=== PATIENT | male | born 1950 | race Hispanic/Latino ===

== ENCOUNTER 2024-03-26 11:09 | Emergency (ER) | payer SELFPAY ==
--- OUTSIDE RECORDS SUMMARY | 2024-03-26 11:16 | XMS REPORT | Continuity of Care Document ---
Author Name Unknown Address [address] [facility] [address] [place] [address] [facility] thconnect Address [address] [facility]. 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 Role Phone Nemo Gonzalez Primary Care Physician JORGE WOODARD Attending Clinician Unavailable Rita Milner NP Attending Clinician [phone] Jorge Woodard MD Attending Clinician [phone] Jalil Castillo MD Attending Clinician [phone] MONTY HARVEY Attending Clinician Unavailable Monty Harvey MD Attending Clinician [phone] Doctor Unassigned, [place] Attending Clinician U navailable RADIOLOGY Attending Clinician Unavailable Radiology Attending Clinician Unavailable London Hitchcock DO Attending Clinician [phone] Edy Albarran MD Attending Clinician [phone] EDY ALBARRAN Attending Clinician Unavailable Gaye Song DO Attending Clinician [phone] Pc, Adc Echo Room 1 - Attending Clinician Anitra Hair MD, Lexi K.H. Attending Clinician [phone] LEXI HAIR Attending Clinician UnavailDENISE King Attending Clinician Unavailable JOHN GARDNER Attending Clinician Kourtney León Attending Clinician [phone] Jj THORNTON, John Dos Santos Attending Clinician [phone] JALIL CASTILLO Admitting Clinician Unavailable Braeden THORNTON, Jalil Admitting Clinician [phone] XIN ESTRADA Admitting Clinician Anitra Albarran MD, Edy Admitting Clinician [phone] EDY ALBARRAN Admitting Clinician Unavailable Payers Payer Name Policy Type Policy Number Effective Date Expirati on Date Source MEDICAID ALI[place] PENDING PENDING 2024 00:00:00 Problems Condition Name Condition Details Condition Category Status Onset Date Resolution Date Last Treatment Date Treating Clinician Comments Source Chest pain in adult Chest pain in adult Disease Active 03-26 00:00: 00 [facility] Chest pain Chest pain Disease Active 2016-08 00:00: 00 [facility] NSVT (nonsustai nhi ventricula r tachycardi a) NSVT (nonsustai nhi ventricula r tachycardi a) Disease Active 2016-08 00:00: 00 [facility] Coronary artery disease involving [place] coronary artery of [place] heart without angina pectoris Coronary artery disease involving [place] coronary artery of [place] heart without angina pectoris Disease Active 2016-08 00:00: 00 [facility] Acute on chronic diastolic congestive heart failure Acute on chronic diastolic congestive heart failure Disease Active 2016-08 00:00: 00 [facility] Subclinica l hypothyroi dism Subclinica l hypothyroi dism Disease Active 2016-08 00:00: 00 [facility] Coronary artery disease involving [place] coronary artery of [place] heart without angina pectoris Coronary artery disease involving [place] coronary artery of [place] heart without angina pectoris Disease Active 2016-08 00:00: 00 [facility] PAF (paroxysma l atrial fibrillati on) PAF (paroxysma l atrial fibrillati on) Disease Active 2016-08 00:00: 00 [facility] Elevated liver enzymes Elevated liver enzymes Disease Active 2016-08 00:00: 00 [facility] 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 Disease Active 2016-08 0 00:00: 00 [facility] H/O: GI bleed H/O: GI bleed Disease Resolve d 2016-08 00:00: 00 2017-06-15 00:00:00 2017-06-15 10:15:22 [facility] Allergies, Adverse Reactions, Alerts Allergy Name Allergy Type Status Severity Reaction(s) Onset Date Inactive Date Treating Clinician Comments Source [place] - Intraven ous Propensi ty to adverse reaction to drug Active 02-26 00:00: 00 Kaz Lopez NO KNOWN ALLERGIE S Drug Class Active [facility] Social History Social Habit Start Date Stop Date Quantity Comments [facility] History of tobacco use Cigarette Smoker [facility] Alcoholic beverage intake 2024-03-26 00:00:00 2024-03-26 00:00:00 Current non-drinker of alcohol (finding) [facility] Exposure to SARS-CoV-2 (event) 2022-04-01 00:00:00 2022-04-11 14:36:00 Not sure [facility] History of Social function 2022-04-11 00:00:00 2022-04-11 00:00:00 [facility] Alcohol intake 2021-04-10 00:00:00 2021-04-10 00:00:00 Current non-drinker of alcohol (finding) [facility] History SDOH Financial 2020-08-24 00:00:00 2020-08-24 00:00:00 4 [facility] History SDOH Food Worry 2020-08-24 00:00:00 2020-08-24 00:00:00 1 [facility] History SDOH Food Scarcity 2020-08-24 00:00:00 2020-08-24 00:00:00 1 [facility] History SDOH Transport Med 2020-08-24 00:00:00 2020-08-24 00:00:00 2 [facility] History SDOH Transport Non-Med 2020-08-24 00:00:00 2020-08-24 00:00:00 2 [facility] Tobacco use and exposure 2017-06-12 00:00:00 2017-06-12 00:00:00 Smokeless tobacco non-user [facility] Sex assigned at 1950 00:00:00 1950 00:00:00 [facility] Smoking Status Start Date Stop Date Source Ex-smoker 2017-06-12 00:00:00 2017-06-12 00:00:00 [facility] Medications Ordered Medication Name Filled Medication Name Start Date Stop Date Current Medication? Ordering Clinician Indication Dosage Frequency Signature (SIG) Comments Components Source enoxaparin (LOVENOX) injection 40 mg 03-26 22:00: 00 Yes 40mg [facility] piperacilli n-tazobacta m (ZOSYN) 3.375 g in NaCl 0.9% (NS) 100 mL MINI-BAG 03-26 16:30: 00 03-28 08:29 :00 Yes 3.375g 3.375 g, IV Piggyback, Q8H ABX, 5 doses, First dose (after last reorder) on 03/26/24 at 1130, Last dose on 03/27/24 at 1930, Administer over 4 Hours, 100 mL, Reason for Anti-Infec tive: Empiric Therapy for Suspected Infection, Empiric Therapy Site: Abdominal, Duration of therapy: Once (ED) [facility] ondansetron (ZOFRAN (PF)) injection 4 mg 03-26 11:33: 29 Yes 4[facility] morphine (2 mg/mL) injection 2 mg 03-26 11:33: 22 03-27 11:32 :22 Yes [facility] morpHINE (4 mg/mL) injection 4 mg 03-26 08:15: 00 03-26 08:13 :00 No 4mg 4 mg, Slow IV Push, ONCE, 1 dose, On 03/26/24 at 0315, STAT [facility] piperacilli n-tazobacta m (ZOSYN) 3.375 g in NaCl 0.9% (NS) 100 mL MINI-BAG 03-26 08:15: 00 03-26 09:03 :00 No 3.375g 3.375 g, IV Piggyback, ONCE, 1 dose, On 03/26/24 at 0315, Administer over 30 Minutes, 100 mL, Reason for Anti-Infec tive: Empiric Therapy for Suspected Infection, Empiric Therapy Site: Abdominal, Duration of therapy: Once (ED) [facility] iopamidol (ISOVUE 370-500 mL) injection 100 mL 03-26 08:15: 00 03-26 08:15 :00 No [id number] 100mL 100 mL, Intravenou s, ONCE, 1 dose, On 03/26/24 at 0315, Routine [facility] famotidine (PEPCID (PF)) injection 20 mg 03-26 07:30: 00 03-26 08:13 :00 No 20mg 20 mg, Slow IV Push, ONCE, 1 dose, [facility] 0230[facility] 4 mg 03-26 06:15: 00 03-26 06:16 :00 No 4mg 4 mg, Slow IV Push, ONCE, 1 dose, On 03/26/24 at 0115, FLORA [facility] morpHINE (4 mg/mL) injection 4 mg 03-26 06:15: 00 03-26 06:16 :00 No 4mg 4 mg, Slow IV Push, ONCE, 1 dose, On 03/26/24 at 0115, STAT [facility] sodium chloride (NS) injection 5 mL 03-26 05:41: 22 Yes 5mL 5 mL, Intravenou s, PRN, Starting on 03/26/24 at 0041, Until Discontinu ed, Routine, IV line flushing [facility] pantoprazol e 40 mg tablet,celso yed release 03-22 00:00: 00 Yes mg Kaz Lopez metoprolol succinate ER 25 mg tablet,exte nded release 24 hr 03-22 00:00: 00 Yes mg Kaz Lopez spironolact one 25 mg tablet 03-22 00:00: 00 Yes mg Kaz Lopez levothyroxi ne 112 mcg tablet 03-22 00:00: 00 Yes mcg Kaz Lopez clopidogrel 75 mg tablet 03-22 00:00: 00 Yes 1mg Kaz Lopez simvastatin 40 mg tablet 03-22 00:00: 00 Yes 1mg Kaz Lopez pantoprazol e 40 mg tablet,celso yed release 12-15 00:00: 00 Yes mg Kza Lopez metoprolol succinate ER 25 mg tablet,exte nded release 24 hr 12-15 00:00: 00 Yes mg Kaz Lopez levothyroxi ne 112 mcg tablet 12-15 00:00: 00 Yes mcg Kaz Lopez clopidogrel 75 mg tablet 12-15 00:00: 00 Yes 1mg Kaz Lopez simvastatin 40 mg tablet 12-15 00:00: 00 Yes 1mg Kaz Lopez TAKE 1 TABLET DAILY. 09-19 00:00: 00 Yes 75 Kaz Lopez TAKE 1 TABLET BY MOUTH DAILY 09-19 00:00: 00 Yes 40 Kaz Lopez TAKE 1 TABLET BY MOUTH ONCE DAILY 09-19 00:00: 00 Yes 40 Kaz Lopez TAKE 1 TABLET BY MOUTH ONCE DAILY 09-19 00:00: 00 Yes 112 Kaz Lopez TAKE 1/2 TABLET DAILY. 09-19 00:00: 00 Yes 25 Kaz Lopez TAKE 1 TABLET EVERY 8 HOURS WITH FOOD. 2022-08 00:00: 00 12-17 00:00 :00 No 800 Kaz Lopez APPLY 1/2 INCH RIBBON IN LOWER CONJUNCTIVA L SAC AT BEDTIME NIGHTLY. 2022-08 00:00: 00 12-17 00:00 :00 No 5 Kaz Lopez TAKE 1 TABLET BY MOUTH ONCE DAILY 04-14 00:00: 00 12-17 00:00 :00 No 112 Kaz F John TAKE 1 TABLET BY MOUTH ONCE DAILY 04-11 00:00: 00 12-17 00:00 :00 No 112 Kaz Lopez TAKE 1 TABLET DAILY. 04-11 00:00: 00 12-17 00:00 :00 No 80 Kaz Lopez TAKE 1/2 TABLET DAILY. 04-11 00:00: 00 12-17 00:00 :00 No 25 Kaz Lopez TAKE 1 TABLET DAILY. 04-11 00:00: 00 12-17 00:00 :00 No 75 Kaz Lopez TAKE 1/2 (ONE-HALF) TABLET BY MOUTH ONCE DAILY 04-11 00:00: 00 12-17 00:00 :00 No 25 Kaz Lopez TAKE 1 TABLET BY MOUTH ONCE DAILY 04-11 00:00: 00 12-17 00:00 :00 No 40 Kaz Lopez TAKE 1 CAPSULE EVERY 6 TO 8 HOURS NEEDED.MAXI MUM OF 3 DOSES IN 24 HOURS. 04-11 00:00: 00 12-17 00:00 :00 No 2 Kaz Lopez TAKE 1 TABLET BY MOUTH ONCE DAILY 04-11 00:00: 00 12-17 00:00 :00 No 50 Kaz Lopez TAKE 1 TABLET BY MOUTH DAILY 04-11 00:00: 00 12-17 00:00 :00 No 40 Kaz Lopez levothyroxi ne 112 mcg tablet 04-06 00:00: 00 Yes mcg Kaz Lopez pantoprazol e 40 mg tablet,celso yed release 04-05 00:00: 00 Yes mg Kaz Lopez TAKE 1 TABLET BY MOUTH ONCE DAILY 04-05 00:00: 00 Yes 112 Kaz Lopez TAKE 1 TABLET BY MOUTH ONCE DAILY 03-12 00:00: 00 12-17 00:00 :00 No 50 Kaz Lopez spironolact one 25 mg tablet 03-04 00:00: 00 Yes [id number] 12.5mg Take 0.5 tablets by mouth daily. [facility] simvastatin 40 mg tablet 03-04 00:00: 00 Yes [id number] 40mg Take 1 tablet by mouth at bedtime. [facility] metoprolol succinate XL 25 mg 24 hr tablet 03-04 00:00: 00 Yes [id number] 12.5mg Take 0.5 tablets by mouth daily. [facility] losartan 50 mg tablet 03-04 00:00: 00 Yes 50mg Take 1 tablet by mouth daily. [facility] KCL (KLOR-CON M20) 20 mEq tablet 03-04 00:00: 00 Yes [id number] 20meq Take 1 tablet by mouth daily. [facility] furosemide 80 mg tablet 03-04 00:00: 00 Yes [id number] 80mg Take 1 tablet by mouth every morning and evening. [facility] clopidogreL 75 mg tablet 03-04 00:00: 00 Yes [id number] 75mg Take 1 tablet by mouth daily. [facility] spironolact one 25 mg tablet 02-24 00:00: 00 Yes mg Kaz Lopez metoprolol succinate ER 25 mg tablet,exte nded release 24 hr 02-24 00:00: 00 Yes mg Kaz Lopez TAKE 1 TABLET BY MOUTH ONCE DAILY 02-24 00:00: 00 12-17 00:00 :00 No 40 Kaz Lopez TAKE 1 TABLET BY MOUTH ONCE DAILY 11-17 00:00: 00 12-17 00:00 :00 No 40 Kaz Lopez TAKE 1/2 (ONE-HALF) TABLET BY MOUTH ONCE DAILY 11-17 00:00: 00 12-17 00:00 :00 No 25 Kaz Lopez TAKE 1 TABLET DAILY. -08 00:00: 00 12-17 00:00 :00 No 75 Kaz Lopez TAKE 1 TABLET DAILY. 09-18 00:00: 00 12-17 00:00 :00 No 112 Kaz Lopze TAKE 1 TABLET BY MOUTH DAILY 2- 00:00: 00 12-17 00:00 :00 No 40 Kaz F John TAKE 1 TABLET DAILY. 09-17 00:00: 00 12-17 00:00 :00 No 112 Kaz F John TAKE 1 CAPSULE 3 TIMES DAILY. 2 00:00: 00 12-17 00:00 :00 No 100 Kaz F John TAKE 1 TABLET BY MOUTH ONCE DAILY 09-17 00:00: 00 12-17 00:00 :00 No 50 Kaz F John TAKE 1 TABLET DAILY. 09-17 00:00: 00 12-17 00:00 :00 No 75 Kaz F John TAKE 1 TABLET BY MOUTH DAILY 09-17 00:00: 00 12-17 00:00 :00 No 20 Kaz F John TAKE 1 TABLET DAILY. 09-17 00:00: 00 12-17 00:00 :00 No 80 Kaz F John TAKE 1/2 TABLET DAILY. 09-17 00:00: 00 12-17 00:00 :00 No 25 Kaz F John TAKE 1 TABLET DAILY. 09-17 00:00: 00 12-17 00:00 :00 No 40 Kaz F John TAKE 1 TABLET BY MOUTH ONCE DAILY 08-22 00:00: 00 12-17 00:00 :00 No 50 Kaz F John TAKE 1/2 (ONE-HALF) TABLET BY MOUTH ONCE DAILY 08-19 00:00: 00 12-17 00:00 :00 No 25 Kaz F John TAKE 1 TABLET DAILY. 2021-08 00:00: 00 12-17 00:00 :00 No 112 Kaz Isaiah Lopez TAKE 1 TABLET BY MOUTH ONCE DAILY 2021-08 00:00: 00 Yes Kaz Lopez pantoprazol e 40 mg EC tablet 2021-08 00:00: 00 Yes 40mg Take 1 tablet by mouth daily. [facility] TAKE 1 TABLET BY MOUTH ONCE DAILY 2021-08 00:00: 00 Yes Kaz Lopez KCL (KLOR-CON M20) 20 mEq tablet 2021-08 00:00: 00 03-04 00:00 :00 No [id number] 20meq Take 1 tablet by mouth daily. [facility] TAKE 1/2 (ONE-HALF) TABLET BY MOUTH ONCE DAILY 05-07 00:00: 00 12-17 00:00 :00 No Kaz Lopez TAKE 1 TABLET BY MOUTH ONCE DAILY 03-03 00:00: 00 Yes Kaz Lopez metoprolol succinate ER 25 mg tablet,exte nded release 24 hr 02-26 00:00: 00 Yes 5mg Kaz Lopez pantoprazol e 40 mg tablet,celos yed release 02-26 00:00: 00 Yes 1mg Kaz Lopez furosemide 80 mg tablet 02-26 00:00: 00 Yes 1mg Kaz Lopez gabapentin 100 mg capsule 02-26 00:00: 00 Yes 1mg Kaz Lopez metoprolol succinate ER 25 mg tablet,exte nded release 24 hr 02-26 00:00: 00 No 5mg pantoprazol e 40 mg tablet,celso yed release 02-26 00:00: 00 No 1mg furosemide 80 mg tablet 02-26 00:00: 00 No 1mg gabapentin 100 mg capsule 02-26 00:00: 00 No 1mg furosemide 80 mg tablet 02-25 00:00: 00 03-04 00:00 :00 No [id number] 80mg Take 1 tablet by mouth every morning and evening. [facility] losartan 50 mg tablet 02-25 00:00: 00 03-04 00:00 :00 No 50mg Take 1 tablet by mouth daily. [facility] metoprolol succinate XL 25 mg 24 hr tablet 02-25 00:00: 00 03-04 00:00 :00 No [id number] 12.5mg Take 0.5 tablets by mouth daily. [facility] levothyroxi ne 112 mcg tablet 2022-0 6-02 00:00: 00 Yes 1mcg Kaz Lopez levothyroxi ne 112 mcg tablet 2021-0 6-02 00:00: 00 No 1mcg metoprolol succinate ER 25 mg tablet,exte nded release 24 hr 2021-0 4-05 00:00: 00 Yes 5mg Kaz Lopez metoprolol succinate ER 25 mg tablet,exte nded release 24 hr 2021-0 4-05 00:00: 00 No 5mg levothyroxi ne 112 mcg tablet 2021-0 3-28 00:00: 00 Yes 1mcg Kaz Lopez TAKE 1 TABLET BY MOUTH ONCE DAILY 2021-0 -28 00:00: 00 Yes Kaz Lopez levothyroxi ne 112 mcg tablet 2021-0 -28 00:00: 00 No 1mcg levothyroxi ne 125 mcg tablet 2021-0 3-24 00:00: 00 Yes 1mcg Kaz Lopez Dose Unknown 2021-0 3-24 00:00: 00 Yes Kaz Lopez Dose Unknown 2021-0 324 00:00: 00 Yes Kaz Lopez Dose Unknown 2021-0 324 00:00: 00 Yes Kaz Lopez Dose Unknown 2021-0 3-24 00:00: 00 Yes Kaz Lopez Dose Unknown 2021-0 3-24 00:00: 00 Yes Kaz Lopez levothyroxi ne 125 mcg tablet 2021-0 324 00:00: 00 No 1mcg Dose Unknown 2021-0 3-24 00:00: 00 No Dose Unknown 2021-0 3-24 00:00: 00 No Dose Unknown 2021-0 3-24 00:00: 00 No Dose Unknown 2021-0 324 00:00: 00 No Dose Unknown 2021-0 3-24 00:00: 00 No metoprolol succinate ER 25 mg tablet,exte nded release 24 hr 2021-0 2-28 00:00: 00 Yes 5mg Kaz Lopez Dose Unknown 2021-0 2-28 00:00: 00 Yes Kaz Lopez pantoprazol e 40 mg tablet,celso yed release 2021-0 2-28 00:00: 00 Yes 1mg Kaz Lopez metoprolol succinate ER 25 mg tablet,exte nded release 24 hr 10-14 00:00: 00 No 5mg spironolact one 25 mg tablet 10-14 00:00: 00 No 5mg pantoprazol e 40 mg tablet,celso yed release 10-14 00:00: 00 No 1mg ibuprofen 800 mg tablet 10-02 00:00: 00 Yes 1mg Kaz Lopez methocarbam ol 750 mg tablet 10-02 00:00: 00 Yes 1mg Kaz Lopez levothyroxi ne 125 mcg tablet 10-02 00:00: 00 Yes 1mcg Kaz Lopez TAKE 1 TABLET BY MOUTH ONCE DAILY 10-02 00:00: 00 Yes Kaz Lopez ibuprofen 800 mg tablet 10-02 00:00: 00 No 1mg methocarbam ol 750 mg tablet 10-02 00:00: 00 No 1mg levothyroxi ne 125 mcg tablet 10-02 00:00: 00 No 1mcg ibuprofen 800 mg tablet 2020-08 00:00: 00 Yes 1mg Kaz Lopez levothyroxi ne 125 mcg tablet 2020-08 00:00: 00 Yes 1mcg Kaz Lopez ibuprofen 800 mg tablet 2020-08 00:00: 00 No 1mg levothyroxi ne 125 mcg tablet 2020-08 00:00: 00 No 1mcg pantoprazol e 40 mg EC tablet 2020-08 00:00: 00 07-03 00:00 :00 No 40mg Take 1 tablet by mouth daily. [facility] terbinafine HCl 250 mg tablet 2020-08 00:00: 00 Yes 1mg Kaz Lopez terbinafine HCl 250 mg tablet 2020-08 00:00: 00 No 1mg FLUTICASONE PROPIONATE (FLUTICASON E NASAL) 04-10 15:35: 33 Yes 50ug Use 50 mcg in each nostril as needed for Other. [facility] clopidogreL 75 mg tablet 04-10 00:00: 00 03-04 00:00 :00 No [id number] 75mg Take 1 tablet by mouth daily. [facility] simvastatin 40 mg tablet 04-10 00:00: 00 03-04 00:00 :00 No [id number] 40mg Take 1 tablet by mouth at bedtime. [facility] spironolact one 25 mg tablet 04-10 00:00: 00 03-04 00:00 :00 No [id number] 12.5mg Take 0.5 tablets by mouth daily. [facility] KCL (KLOR-CON M20) 20 mEq tablet 04-10 00:00: 00 06-24 00:00 :00 No [id number] 20meq Take 1 tablet by mouth daily. [facility] terbinafine HCl 250 mg tablet 04-06 00:00: 00 Yes 1mg Kaz Lopez terbinafine HCl 250 mg tablet 04-06 00:00: 00 No 1mg levothyroxi ne 125 mcg tablet 12-25 00:00: 00 Yes 1mcg Kaz Lopez levothyroxi ne 125 mcg tablet 12-25 00:00: 00 No 1mcg amiodarone 200 mg tablet 12-24 00:00: 00 Yes 5mg Kaz Lopez Dose Unknown 12-24 00:00: 00 Yes Kaz Lopez clopidogrel 75 mg tablet 12-24 00:00: 00 Yes 1mg Kaz Lopez metoprolol succinate ER 25 mg tablet,exte nded release 24 hr 12-24 00:00: 00 Yes 5mg Kaz Lopez Dose Unknown 12-24 00:00: 00 Yes Kaz Lopez furosemide 80 mg tablet 12-24 00:00: 00 Yes 1mg Kaz Lopez levothyroxi ne 125 mcg tablet 12-24 00:00: 00 Yes 1mcg Kaz Lopez amiodarone 200 mg tablet 12-24 00:00: 00 No 5mg spironolact one 25 mg tablet 12-24 00:00: 00 No 5mg clopidogrel 75 mg tablet 12-24 00:00: 00 No 1mg metoprolol succinate ER 25 mg tablet,exte nded release 24 hr 12-24 00:00: 00 No 5mg simvastatin 40 mg tablet 12-24 00:00: 00 No 1mg furosemide 80 mg tablet 12-24 00:00: 00 No 1mg levothyroxi ne 125 mcg tablet 12-24 00:00: 00 No 1mcg metoprolol succinate ER 25 mg tablet,exte nded release 24 hr 2019-08 00:00: 00 Yes 5mg Kaz Lopez Dose Unknown 2019-08 00:00: 00 Yes Kaz Lopez spironolact one 25 mg tablet 2019-08 00:00: 00 Yes 5mg Kaz Lopez clopidogrel 75 mg tablet 2019-08 00:00: 00 Yes 1mg Kaz Lopez pantoprazol e 40 mg tablet,celso yed release 2019-08 00:00: 00 Yes 1mg Kaz Lopez amiodarone 200 mg tablet 2019-08 00:00: 00 Yes 5mg Kaz Lopez furosemide 80 mg tablet 2019-08 00:00: 00 Yes 1mg Kaz Lopez Cialis 20 mg tablet 2019-08 00:00: 00 Yes 1mg Kaz Lopez levothyroxi ne 125 mcg tablet 2019-08 00:00: 00 Yes 1mcg Kaz Lopez metoprolol succinate ER 25 mg tablet,exte nded release 24 hr 2019-08 00:00: 00 No 5mg simvastatin 40 mg tablet 2019-08 00:00: 00 No 1mg spironolact one 25 mg tablet 2019-08 00:00: 00 No 5mg clopidogrel 75 mg tablet 2019-08 00:00: 00 No 1mg pantoprazol e 40 mg tablet,celso yed release 2019-08 00:00: 00 No 1mg amiodarone 200 mg tablet 2019-08 00:00: 00 No 5mg furosemide 80 mg tablet 2019-08 00:00: 00 No 1mg Cialis 20 mg tablet 2019-08 00:00: 00 No 1mg levothyroxi ne 125 mcg tablet 2019-08 00:00: 00 No 1mcg levothyroxi ne 125 mcg tablet 05-13 00:00: 00 Yes 1mcg Kaz Lopez levothyroxi ne 125 mcg tablet 05-13 00:00: 00 No 1mcg levothyroxi ne 125 mcg tablet 03-05 00:00: 00 Yes 1mcg Kaz Lopez levothyroxi ne 125 mcg tablet 03-05 00:00: 00 No 1mcg levothyroxi ne 125 mcg tablet 01-01 00:00: 00 Yes 1mcg Kaz Lopez levothyroxi ne 125 mcg tablet 01-01 00:00: 00 No 1mcg levothyroxi ne 112 mcg tablet 01-01 00:00: 00 Yes 112ug Take 1 tablet by mouth every morning. [facility] aspirin 81 mg chewable tablet 01-01 00:00: 00 Yes 81mg Take 1 tablet by mouth daily. [facility] cetirizine 10 mg tablet 12-30 00:00: 00 Yes 1mg Kaz Lopez metoprolol succinate ER 25 mg tablet,exte nded release 24 hr 12-30 00:00: 00 Yes 5mg Kaz Lopez Dose Unknown 12-30 00:00: 00 Yes Kaz Lopez clopidogrel 75 mg tablet 12-30 00:00: 00 Yes 1mg Kaz Lopez Dose Unknown 12-30 00:00: 00 Yes Kaz Lopez pantoprazol e 40 mg tablet,celso yed release 12-30 00:00: 00 Yes 1mg Kaz Lopez amiodarone 200 mg tablet 12-30 00:00: 00 Yes 5mg Kaz Lopez furosemide 80 mg tablet 12-30 00:00: 00 Yes 1mg aKz Lopez Cialis 20 mg tablet 12-30 00:00: 00 Yes 1mg Kaz Lopez cetirizine 10 mg tablet 12-30 00:00: 00 No 1mg metoprolol succinate ER 25 mg tablet,exte nded release 24 hr 12-30 00:00: 00 No 5mg simvastatin 40 mg tablet 12-30 00:00: 00 No 1mg clopidogrel 75 mg tablet 12-30 00:00: 00 No 1mg spironolact one 25 mg tablet 12-30 00:00: 00 No 5mg pantoprazol e 40 mg tablet,celso yed release 12-30 00:00: 00 No 1mg amiodarone 200 mg tablet 12-30 00:00: 00 No 5mg furosemide 80 mg tablet 12-30 00:00: 00 No 1mg Cialis 20 mg tablet 12-30 00:00: 00 No 1mg levothyroxi ne 112 mcg tablet 12-19 00:00: 00 Yes 1mcg Kaz Lopez levothyroxi ne 112 mcg tablet 12-19 00:00: 00 No 1mcg spironolact one 25 mg tablet 11-02 00:00: 00 Yes 5mg Kaz Lopez amiodarone 200 mg tablet 11-02 00:00: 00 Yes 5mg Kaz Lopez pantoprazol e 40 mg tablet,celso yed release 11-02 00:00: 00 Yes 1mg Kaz Lopez metoprolol succinate ER 25 mg tablet,exte nded release 24 hr 11-02 00:00: 00 Yes 5mg Kaz Lopez simvastatin 40 mg tablet 11-02 00:00: 00 Yes 1mg Kaz Lopez clopidogrel 75 mg tablet 11-02 00:00: 00 Yes 1mg Kaz Lopez cetirizine 10 mg tablet 11-02 00:00: 00 Yes 1mg Kaz Lopez furosemide 80 mg tablet 11-02 00:00: 00 Yes 1mg Kaz Lopez cyclobenzap rine 5 mg tablet 11-02 00:00: 00 Yes 1mg Kaz Lopez Klor-Con M20 mEq tablet,exte nded release 11-02 00:00: 00 Yes 1mEq Kaz Lopez levothyroxi ne 112 mcg tablet 11-02 00:00: 00 Yes 1mcg Kaz Lopez spironolact one 25 mg tablet 11-02 00:00: 00 No 5mg amiodarone 200 mg tablet 11-02 00:00: 00 No 5mg pantoprazol e 40 mg tablet,celso yed release 11-02 00:00: 00 No 1mg metoprolol succinate ER 25 mg tablet,exte nded release 24 hr 11-02 00:00: 00 No 5mg simvastatin 40 mg tablet 11-02 00:00: 00 No 1mg clopidogrel 75 mg tablet 11-02 00:00: 00 No 1mg cetirizine 10 mg tablet 11-02 00:00: 00 No 1mg furosemide 80 mg tablet 11-02 00:00: 00 No 1mg cyclobenzap rine 5 mg tablet 11-02 00:00: 00 No 1mg Klor-Con M20 mEq tablet,exte nded release 11-02 00:00: 00 No 1mEq levothyroxi ne 112 mcg tablet 11-02 00:00: 00 No 1mcg tadalafil 20 mg tablet 10-27 00:00: 00 Yes [id number] 20mg Take 1 tablet by mouth as needed for [facility] mg [facility] 10-19 00:00: 00 Yes 1mg Kaz Lopez clopidogrel 75 mg tablet 10-19 00:00: 00 Yes 1mg Kaz Lopez spironolact one 25 mg tablet 10-19 00:00: 00 Yes 5mg Kaz Lopez amiodarone 200 mg tablet 10-19 00:00: 00 Yes 5mg Kaz Lopez pantoprazol e 40 mg tablet,celso yed release 10-19 00:00: 00 Yes 1mg Kaz Lopez metoprolol succinate ER 25 mg tablet,exte nded release 24 hr 10-19 00:00: 00 Yes 5mg Kaz Lopez furosemide 80 mg tablet 10-19 00:00: 00 Yes 1mg Kaz Lopez Klor-Con M20 mEq tablet,exte nded release 10-19 00:00: 00 Yes 1mEq Kaz Lopez levothyroxi ne 112 mcg tablet 10-19 00:00: 00 Yes 1mcg Kaz Lopez simvastatin 40 mg tablet 10-19 00:00: 00 No 1mg clopidogrel 75 mg tablet 10-19 00:00: 00 No 1mg spironolact one 25 mg tablet 10-19 00:00: 00 No 5mg amiodarone 200 mg tablet 10-19 00:00: 00 No 5mg pantoprazol e 40 mg tablet,celso yed release 10-19 00:00: 00 No 1mg metoprolol succinate ER 25 mg tablet,exte nded release 24 hr 10-19 00:00: 00 No 5mg furosemide 80 mg tablet 10-19 00:00: 00 No 1mg Klor-Con M20 mEq tablet,exte nded release 10-19 00:00: 00 No 1mEq levothyroxi ne 112 mcg tablet 10-19 00:00: 00 No 1mcg metoprolol succinate ER 25 mg tablet,exte nded release 24 hr 09-16 00:00: 00 Yes 5mg Kaz Lopez pantoprazol e 40 mg tablet,celso yed release 09-16 00:00: 00 Yes 1mg Kaz Lopez amiodarone 200 mg tablet 09-16 00:00: 00 Yes 5mg Kaz Lopez clopidogrel 75 mg tablet 09-16 00:00: 00 Yes 1mg Kaz Lopez spironolact one 25 mg tablet 09-16 00:00: 00 Yes 5mg Kaz Lopez simvastatin 40 mg tablet 09-16 00:00: 00 Yes 1mg Kaz Lopez furosemide 80 mg tablet 09-16 00:00: 00 Yes 1mg Kaz Lopez Klor-Con M20 mEq tablet,exte nded release 09-16 00:00: 00 Yes 1mEq Kaz Lopez metoprolol succinate ER 25 mg tablet,exte nded release 24 hr 09-16 00:00: 00 No 5mg pantoprazol e 40 mg tablet,celso yed release 09-16 00:00: 00 No 1mg amiodarone 200 mg tablet 09-16 00:00: 00 No 5mg clopidogrel 75 mg tablet 09-16 00:00: 00 No 1mg spironolact one 25 mg tablet 09-16 00:00: 00 No 5mg simvastatin 40 mg tablet 09-16 00:00: 00 No 1mg furosemide 80 mg tablet 09-16 00:00: 00 No 1mg Klor-Con M20 mEq tablet,exte nded release 09-16 00:00: 00 No 1mEq levothyroxi ne 112 mcg tablet 09-15 00:00: 00 Yes 1mcg Kaz Lopez levothyroxi ne 112 mcg tablet 09-15 00:00: 00 No 1mcg loratadine 10 mg tablet 2018-08 00:00: 00 Yes 1mg Kaz Lopez Tessalon Perles 100 mg capsule 2018-08 00:00: 00 Yes 12mg Kaz Lopez loratadine 10 mg tablet 2018-08 00:00: 00 No 1mg Tessalon Perles 100 mg capsule 2018-08 00:00: 00 No 12mg Levitra 20 mg tablet 2018-08 00:00: 00 Yes 1mg Kaz Lopez levothyroxi ne 112 mcg tablet 2018-08 00:00: 00 Yes 1mcg Kaz Lopez Levitra 20 mg tablet 2018-08 00:00: 00 No 1mg levothyroxi ne 112 mcg tablet 2018-08 00:00: 00 No 1mcg Viagra 50 mg tablet 04-09 00:00: 00 Yes 1mg Kaz Lopez Viagra 50 mg tablet 04-09 00:00: 00 No 1mg Viagra 50 mg tablet 03-07 00:00: 00 Yes 1mg Kaz Lopez Viagra 50 mg tablet 03-07 00:00: 00 No 1mg ProAir HFA 90 mcg/actuati on aerosol inhaler 03-04 00:00: 00 Yes 1mcg/ac tuation Kaz Lopez Augmentin 875 mg-125 mg tablet 03-04 00:00: 00 Yes 1mg Kaz Lopez ProAir HFA 90 mcg/actuati on aerosol inhaler 03-04 00:00: 00 No 1mcg/ac tuation Augmentin 875 mg-125 mg tablet 03-04 00:00: 00 No 1mg cetirizine 10 mg tablet 02-12 00:00: 00 Yes 1mg Kaz Lopez cetirizine 10 mg tablet 02-12 00:00: 00 No 1mg levothyroxi ne 112 mcg tablet 2017-08 00:00: 00 Yes 1mcg Kaz Lopez levothyroxi ne 112 mcg tablet 2017-08 00:00: 00 No 1mcg levothyroxi ne 112 mcg tablet 04-10 00:00: 00 Yes 1mcg Kaz Lopez levothyroxi ne 112 mcg tablet 04-10 00:00: 00 No 1mcg levothyroxi ne 100 mcg tablet 02-12 00:00: 00 Yes 1mcg Kaz Lopez levothyroxi ne 100 mcg tablet 02-12 00:00: 00 No 1mcg levothyroxi ne 100 mcg tablet 01-19 00:00: 00 Yes 1mcg Kaz Lopez levothyroxi ne 100 mcg tablet 01-19 00:00: 00 No 1mcg metoprolol succinate ER 25 mg tablet,exte nded release 24 hr 11-29 00:00: 00 Yes 5mg Kaz Lopez metoprolol succinate ER 25 mg tablet,exte nded release 24 hr 11-29 00:00: 00 No 5mg pantoprazol e 40 mg tablet,celso yed release 11-25 00:00: 00 Yes 1mg Kaz Lopez pantoprazol e 40 mg tablet,celso yed release 11-25 00:00: 00 No 1mg spironolact one 25 mg tablet 11-16 00:00: 00 Yes 5mg Kaz Lopez levothyroxi ne 50 mcg tablet 11-16 00:00: 00 Yes 1mcg Kaz Lopez spironolact one 25 mg tablet 11-16 00:00: 00 No 5mg levothyroxi ne 50 mcg tablet 11-16 00:00: 00 No 1mcg levothyroxi ne 50 mcg tablet 11-16 00:00: 00 No 2mcg Klor-Con M20 mEq tablet,exte nded release 10-31 00:00: 00 Yes 1mEq Kaz Lopez Klor-Con M20 mEq tablet,exte nded release 10-31 00:00: 00 No 1mEq furosemide 80 mg tablet 10-28 00:00: 00 Yes 1mg Kaz Lopez furosemide 80 mg tablet 10-28 00:00: 00 No 1mg amiodarone 200 mg tablet 10-19 00:00: 00 Yes 5mg Kaz Lopez amiodarone 200 mg tablet 10-19 00:00: 00 No 5mg clopidogrel 75 mg tablet 04-21 00:00: 00 Yes 1mg Kaz Lopez lisinopril 2.5 mg tablet 04-21 00:00: 00 Yes 1mg Kaz Lopez aspirin 81 mg tablet,celso yed release 04-21 00:00: 00 Yes 1mg Kaz Lopez simvastatin 40 mg tablet 04-21 00:00: 00 Yes 1mg Kaz Lopez amiodarone 200 mg tablet 04-21 00:00: 00 Yes 1mg Kaz Lopez carvedilol 3.125 mg tablet 04-21 00:00: 00 Yes 1mg Kaz Lopez warfarin 2 mg tablet 04-21 00:00: 00 Yes 1mg Kaz Lopez aspirin 81 mg tablet,celso yed release 04-21 00:00: 00 No 1mg simvastatin 40 mg tablet 04-21 00:00: 00 No 1mg amiodarone 200 mg tablet 04-21 00:00: 00 No 1mg carvedilol 3.125 mg tablet 04-21 00:00: 00 No 1mg warfarin 2 mg tablet 04-21 00:00: 00 No 1mg clopidogrel 75 mg tablet 04-21 00:00: 00 No 1mg lisinopril 2.5 mg tablet 04-21 00:00: 00 No 1mg lisinopril 10 mg tablet 04-18 00:00: 00 Yes 1mg Kaz Lopez omeprazole 20 mg tablet,celso yed release 04-18 00:00: 00 Yes 1mg Kaz Lopez clarithromy freddy 500 mg tablet 04-18 00:00: 00 Yes 1mg Kaz Lopez amoxicillin 500 mg capsule 04-18 00:00: 00 Yes 2mg Kaz Lopez lisinopril 10 mg tablet 04-18 00:00: 00 No 1mg omeprazole 20 mg tablet,celso yed release 04-18 00:00: 00 No 1mg clarithromy freddy 500 mg tablet 04-18 00:00: 00 No 1mg amoxicillin 500 mg capsule 04-18 00:00: 00 No 2mg Immunizations Ordered Immunization Name Filled Immunization Name Date Status Comments Source Pneumococcal conjugate P Pneumococcal conjugate P 2018-05-17 00:00:00 Completed Kaz Colon John zoster zoster 2018-05-17 00:00:00 Completed Kaz Lopez Pneumococcal conjugate P Pneumococcal conjugate P 2018-05-17 00:00:00 Completed Kaz Lopez zoster zoster 2018-05-17 00:00:00 Completed Kaz Lopez Pneumococcal conjugate P 2018-05-17 00:00:00 Completed zoster 2018-05-17 00:00:00 Completed Vital Signs Vital Name Observation Time Observation Value Comments S jody Systolic blood pressure 2024-03-26 11:00:00 127 mm[Hg] [facility] Diastolic blood pressure 2024-03-26 11:00:00 67 mm[Hg] [facility] Heart rate 2024-03-26 11:00:00 66 /[facility] Res[facility] 2024-03-26 11:00:00 27 /min [facility] Oxygen saturation in Arterial blood by Pulse oximetry 2024-03-26 11:00:00 92 /min [facility] Body temperature 2024-03-26 05:41:00 37.11 Sadia [facility] Body height 2024-03-26 05:41:00 167.6 cm [facility] Body weight 2024-03-26 05:41:00 94.348 kg [facility] BMI 2024-03-26 05:41:00 33.57 kg/m2 [facility] Systolic blood pressure 2022-04-11 19:51:00 109 mm[Hg] [facility] Diastolic blood pressure 2022-04-11 19:51:00 61 mm[Hg] [facility] Heart rate 2022-04-11 19:51:00 62 /min [facility] Body temperature 2022-04-11 19:51:00 35.94 Sadia [facility] Respiratory rate 2022-04-11 19:51:00 16 /min [facility] Body height 2022-04-11 19:51:00 172.7 cm [facility] Body weight 2022-04-11 19:51:00 88.86 kg [facility] BMI 2022-04-11 19:51:00 29.79 kg/m2 [facility] Oxygen saturation in Arterial blood by Pulse oximetry 2022-04-11 19:51:00 99 /min [facility] BP Systolic 2024-03-22 14:59:00 140 mm[Hg] Step hen F John BP Diastolic 2024-03-22 14:59:00 78 mm[Hg] Goran phen F John Weight Measured 2024-03-22 14:59:00 208.80 pounds Kaz F John Height Measured 2024-03-22 14:59:00 68.00 inches Kaz F John Body Temperature 2024-03-22 14:59:00 97.30 degrees Kaz F John Heart Rate 2024-03-22 14:59:00 59.00 /min Sujatha en F John Respiratory Rate 2024-03-22 14:59:00 18.00 /min Kaz F John BP Diastolic 2023-12-16 15:00:00 80 mm[Hg] Goran phen F John Weight Measured 2023-12-16 15:00:00 200.00 pounds Kaz F John Height Measured 2023-12-16 15:00:00 68.00 inches Kaz F John Body Temperature 2023-12-16 15:00:00 97.90 degrees Kaz F John Heart Rate 2023-12-16 15:00:00 66.00 /min Sujatha en F John Respiratory Rate 2023-12-16 15:00:00 16.00 /min Kaz F John BP Systolic 2023-12-16 15:00:00 137 mm[Hg] Step hen F John BP Systolic 2023-09-19 09:13:00 116 mm[Hg] Step hen F John BP Diastolic 2023-09-19 09:13:00 72 mm[Hg] Goran phen F John Weight Measured 2023-09-19 09:13:00 199.20 pounds Kaz F John Height Measured 2023-09-19 09:13:00 68.00 inches Kaz F John Body Temperature 2023-09-19 09:13:00 98.20 degrees Kaz F John Heart Rate 2023-09-19 09:13:00 58.00 /min Sujatha en F John Respiratory Rate 2023-09-19 09:13:00 19.00 /min Kaz F John BP Systolic 2023-07-04 09:55:00 114 mm[Hg] Step hen F John BP Diastolic 2023-07-04 09:55:00 72 mm[Hg] Goran phen F John Weight Measured 2023-07-04 09:55:00 197.60 pounds Kaz F John Height Measured 2023-07-04 09:55:00 68.00 inches Kaz F John Body Temperature 2023-07-04 09:55:00 98.30 degrees Kaz F John Heart Rate 2023-07-04 09:55:00 65.00 /min Sujatha en F John Respiratory Rate 2023-07-04 09:55:00 Kaz F John BP Systolic 2023-04-11 11:49:00 122 mm[Hg] Step hen F John BP Diastolic 2023-04-11 11:49:00 75 mm[Hg] Goran phen F John Weight Measured 2023-04-11 11:49:00 201.00 pounds Kaz F John Height Measured 2023-04-11 11:49:00 68.00 inches Kaz F John Body Temperature 2023-04-11 11:49:00 98.60 degrees Kaz F John Heart Rate 2023-04-11 11:49:00 61.00 /min Sujatha en F John Respiratory Rate 2023-04-11 11:49:00 20.00 /min Kaz F John BP Systolic 2022-09-17 09:48:00 106 mm[Hg] Step hen F John BP Diastolic 2022-09-17 09:48:00 69 mm[Hg] Goran phen F John Weight Measured 2022-09-17 09:48:00 201.00 pounds Kaz F John Height Measured 2022-09-17 09:48:00 68.00 inches Kaz F John Body Temperature 2022-09-17 09:48:00 98.10 degrees Kaz F John Heart Rate 2022-09-17 09:48:00 68.00 /min Sujatha en F John Respiratory Rate 2022-09-17 09:48:00 Kaz F John BP Systolic 2022-05-07 10:59:00 110 mm[Hg] Step hen F John BP Diastolic 2022-05-07 10:59:00 69 mm[Hg] Goran phen F John Weight Measured 2022-05-07 10:59:00 194.60 pounds Kaz F John Height Measured 2022-05-07 10:59:00 68.00 inches Kaz F John Body Temperature 2022-05-07 10:59:00 98.30 degrees Kaz F John Heart Rate 2022-05-07 10:59:00 61.00 /min Sujatha en F John Respiratory Rate 2022-05-07 10:59:00 18.00 /min Kaz F John BP Systolic 2022-02-26 09:05:00 143 mm[Hg] Step hen F John BP Diastolic 2022-02-26 09:05:00 70 mm[Hg] Goran phen F John Weight Measured 2022-02-26 09:05:00 195.20 pounds Kaz F John Height Measured 2022-02-26 09:05:00 68.00 inches Kaz F John Body Temperature 2022-02-26 09:05:00 98.10 degrees Kaz F John Heart Rate 2022-02-26 09:05:00 69.00 /min Sujatha en F John Respiratory Rate 2022-02-26 09:05:00 18.00 /min Kaz F John BP Systolic 2021-11-07 10:36:00 109 mm[Hg] Step hen F John BP Diastolic 2021-11-07 10:36:00 63 mm[Hg] Goran phen F John Weight Measured 2021-11-07 10:36:00 201.00 pounds Kaz F John Height Measured 2021-11-07 10:36:00 68.00 inches Kaz F John Body Temperature 2021-11-07 10:36:00 98.00 degrees Kaz F John Heart Rate 2021-11-07 10:36:00 62.00 /min Sujatha en F John Respiratory Rate 2021-11-07 10:36:00 16.00 /min Kaz F John BP Systolic 2021-10-02 11:32:00 104 mm[Hg] Step hen F John BP Diastolic 2021-10-02 11:32:00 64 mm[Hg] Goran phen F John Weight Measured 2021-10-02 11:32:00 204.80 pounds Kaz F John Height Measured 2021-10-02 11:32:00 68.00 inches Kaz F John Body Temperature 2021-10-02 11:32:00 98.30 degrees Kaz F John Heart Rate 2021-10-02 11:32:00 63.00 /min Sujatha en F John Respiratory Rate 2021-10-02 11:32:00 17.00 /min Kaz F John BP Systolic 2021-07-10 17:32:00 140 mm[Hg] Step hen F John BP Diastolic 2021-07-10 17:32:00 69 mm[Hg] Goran phen F John Weight Measured 2021-07-10 17:32:00 213.60 pounds Kaz F John Height Measured 2021-07-10 17:32:00 68.00 inches Kaz F John Body Temperature 2021-07-10 17:32:00 98.50 degrees Kaz F John Heart Rate 2021-07-10 17:32:00 65.00 /min Sujatha en F John Respiratory Rate 2021-07-10 17:32:00 17.00 /min Kaz F John BP Systolic 2021-07-08 17:17:00 109 mm[Hg] BP Diastolic 2021-07-08 17:17:00 65 mm[Hg] Weight Measured 2021-07-08 17:17:00 212.80 pounds Height Measured 2021-07-08 17:17:00 68.00 inches Body Temperature 2021-07-08 17:17:00 98.20 degrees Heart Rate 2021-07-08 17:17:00 71.00 /min Respiratory Rate 2021-07-08 17:17:00 BP Systolic 2021-06-13 14:33:00 103 mm[Hg] BP Diastolic 2021-06-13 14:33:00 66 mm[Hg] Weight Measured 2021-06-13 14:33:00 216.60 pounds Height Measured 2021-06-13 14:33:00 68.00 inches Body Temperature 2021-06-13 14:33:00 98.60 degrees Heart Rate 2021-06-13 14:33:00 80.00 /min Respiratory Rate 2021-06-13 14:33:00 BP Systolic 2021-06-12 15:34:00 96 mm[Hg] BP Diastolic 2021-06-12 15:34:00 61 mm[Hg] Weight Measured 2021-06-12 15:34:00 215.80 pounds Height Measured 2021-06-12 15:34:00 68.00 inches Body Temperature 2021-06-12 15:34:00 98.90 degrees Heart Rate 2021-06-12 15:34:00 80.00 /min Respiratory Rate 2021-06-12 15:34:00 BP Systolic 2021-06-01 09:41:00 135 mm[Hg] BP Diastolic 2021-06-01 09:41:00 77 mm[Hg] Weight Measured 2021-06-01 09:41:00 211.60 pounds Height Measured 2021-06-01 09:41:00 68.00 inches Body Temperature 2021-06-01 09:41:00 97.90 degrees Heart Rate 2021-06-01 09:41:00 78.00 /min Respiratory Rate 2021-06-01 09:41:00 17.00 /min BP Systolic 2021-04-06 10:25:00 124 mm[Hg] BP Diastolic 2021-04-06 10:25:00 78 mm[Hg] Weight Measured 2021-04-06 10:25:00 215.00 pounds Height Measured 2021-04-06 10:25:00 68.00 inches Body Temperature 2021-04-06 10:25:00 98.10 degrees Heart Rate 2021-04-06 10:25:00 68.00 /min Respiratory Rate 2021-04-06 10:25:00 16.00 /min BP Systolic 2021-02-09 10:58:00 127 mm[Hg] BP Diastolic 2021-02-09 10:58:00 75 mm[Hg] Weight Measured 2021-02-09 10:58:00 212.60 pounds Height Measured 2021-02-09 10:58:00 68.00 inches Body Temperature 2021-02-09 10:58:00 97.50 degrees Heart Rate 2021-02-09 10:58:00 58.00 /min Respiratory Rate 2021-02-09 10:58:00 17.00 /min Procedures Procedure Date / Time Performed Performing Clinician Source US GALL BLADDER 2024-03-26 09:38:11 Drew Louis [facility] ACETAMINOPHEN 2024-03-26 07:38:00 Drew Louis [facility] CT ABDOMEN PELVIS W CONTRAST 2024-03-26 07:23[facility] 2024-03-26 06:44:56 Rita Milner [facility] LIPASE 2024-03-26 05:44:00 [facility] TROPONIN I 2024-03-26 05:44:00 Rita [facility] COMP. METABOLIC PANEL (57638) 2024-03-26 05:44:00 Rita Milner [facility] ETHANOL 2024-03-26 05:44[facility]FF 2024-03-26 05:44:00 Rita Milner [facility] N-TERMINAL PRO-BNP 2024-03-26 05:44:00 Drew Louis [facility] Plan of Care Planned Activity Planned Date Details Comments Source Goal Plan of Care Note [code = 89321-1] Goal Plan of Care Note [code = 53505-1] Goal Plan of Care Note [code = 83616-7] Goal Plan of Care Note [code = 75164-7] Goal Plan of Care Note [code = 75658-7] Goal Plan of Care Note [code = 62514-9] Goal Plan of Care Note [code = 02955-6] Goal Plan of Care Note [code = 48369-9] Goal Plan of Care Note [code = 47648-5] Goal Plan of Care Note [code = 27941-4] Goal Plan of Care Note [code = 19000-0] Goal Plan of Care Note [code = 22579-7] Goal Plan of Care Note [code = 38154-7] Goal Plan of Care Note [code = 94757-2] Goal Plan of Care Note [code = 18398-9] Goal Plan of Care Note [code = 75090-5] Goal Plan of Care Note [code = 61288-2] Goal Plan of Care Note [code = 44465-9] Goal Plan of Care Note [code = 43519-5] Goal Plan of Care Note [code = 24013-7] Goal Plan of Care Note [code = 82593-6] Goal Plan of Care Note [code = 20712-3] Goal Plan of Care Note [code = 52730-9] Goal Plan of Care Note [code = 93344-2] Goal Plan of Care Note [code = 30233-5] Goal Plan of Care Note [code = 50018-0] Goal Plan of Care Note [code = 63993-1] Goal Plan of Care Note [code = 08206-5] Goal Plan of Care Note [code = 28556-5] Goal Plan of Care Note [code = 03129-9] Goal Plan of Care Note [code = 07899-2] Goal Plan of Care Note [code = 63661-3] Goal Plan of Care Note [code = 88385-4] Goal Plan of Care Note [code = 51005-2] Goal Plan of Care Note [code = 22134-8] Goal Plan of Care Note [code = 19034-4] Encounters Start Date/Time End Date/Time Encounter Type Admission Type Attending [facility] Facility Care Department Encounter ID Source 2021-06-14 15:30:58 Emergency [facility] [id number] [facility] 2024-03-26 00:38:00 2024-03-26 07:36:00 Outpatient X CHAPIN WOODARDI [facility] [id number] [facility] 2024-03-26 00:38:00 2024-03-26 07:36:00 Emergency Rita Milner Laithtony, [facility]ara Castillo[facility] 1.2.840.114 350.1.13.10 4.2.7.2.686 [id number] [facility] 2024-03-22 15:02:27 2024-03-22 15:02:27 Outpatient [facility] [id number] Kaz Lopez 2024-03-22 00:00:00 2024-03-22 00:00:00 Outpatient Visit [facility] [id number] Kaz Lopez 2023-12-16 14:50:18 2023-12-16 14:50:18 Outpatient [facility] [id number] Kaz Lopez 2023-12-16 00:00:00 2023-12-16 00:00:00 Outpatient Visit [facility] [id number] Kaz Lopez 2023-09-19 09:01:49 2023-09-19 09:01:49 Outpatient [facility] [id number] Kaz Lopez 2023-07-04 09:58:54 2023-07-04 09:58:54 Outpatient [facility] [id number] Kaz Lopez 2023-04-11 11:39:20 2023-04-11 11:39:20 Outpatient [facility] [id number] Kaz Lopez 2023-04-10 11:20:00 2023-04-10 11:20:00 Outpatient R MONTY HARVEY [facility] [id number] [facility] 2023-03-04 00:00:00 2023-03-04 00:00:00 [facility] 1.2.840.114 350.1.13.10 4.2.7.2.686 [id number] [facility] 2022-09-24 15:23:50 2022-09-24 15:23:50 Outpatient [facility] [id number] Kaz Colon Gerlach 2022-09-17 09:42:06 2022-09-17 09:42:06 Outpatient [facility] [id number] Kaz Colon John 2022-07-03 00:00:00 2022-07-03 00:00:00 Refill [facility] 1.2.840.114 350.1.13.10 4.2.7.2.686 [id number] [facility] 2022-06-24 00:00:00 2022-06-24 00:00:00 [facility] 1.2.840.114 350.1.13.10 4.2.7.2.686 [id number] [facility] 2022-04-11 14:40:00 2022-04-11 15:33:23 Outpatient R MONTY HARVEY [facility] [id number] [facility] 2022-04-11 14:40:00 2022-04-11 15:33:23 [facility] 1.2.840.114 350.1.13.10 4.2.7.2.686 [id number] [facility] 2022-04-11 14:40:00 2022-04-11 15:33:23 Outpatient R MONTY HARVEY [facility] [id number] [facility] 2022-04-11 00:00:00 2022-04-11 00:00:00 Orders Only Doctor Unassigned, [place] [facility] 1.2.840.114 350.1.13.10 4.2.7.2.686 [id number] [facility] 2022-04-11 00:00:00 2022-04-11 00:00:00 [facility] (Out[facility] 1.2.840.114 350.1.13.10 4.2.7.2.686 [id number] [facility] 2022-02-26 00:00:00 2022-02-26 00:00:00 Outpatient Visit [id number] 2022-02-24 00:00:00 2022-02-24 00:00:00 [facility] 1.2.840.114 350.1.13.10 4.2.7.2.686 [id number] [facility] 2022-02-20 00:00:00 2022-02-20 00:00:00 [facility] 1.2.840.114 350.1.13.10 4.2.7.2.686 [id number] [facility] 2021-12-26 00:00:00 2021-12-26 00:00:00 Refill [facility] 1.2.840.114 350.1.13.10 4.2.7.2.686 [id number] [facility] 2021-11-19 00:00:00 2021-11-19 00:00:[facility] 1.2.840.114 350.1.13.10 4.2.7.2.686 [id number] [facility] 2021-10-17 00:00:00 2021-10-17 00:00:00 Refill Ian [facility] 1.2.840.114 350.1.13.10 4.2.7.2.686 [id number] [facility] 2021-09-20 14:50:35 2021-09-20 23:59:00 Outpatient R RADIOLOGY [facility] [id number] [facility] 2021-09-20 14:45:00 2021-09-20 23:59:00 Hospital Encounter Radiology [facility] 1.2.840.114 350.1.13.10 4.2.7.2.686 [id number] [facility] 2021-09-20 00:00:00 2021-09-20 00:00:00 Orders Only Doctor Unassigned, [place] [facility] 1.2.840.114 350.1.13.10 4.2.7.2.686 [id number] [facility] 2021-07-09 00:00:00 2021-07-09 00:00:00 Orders Only Doctor Unassigned, [place] [facility] 1.2.840.114 350.1.13.10 4.2.7.2.686 [id number] [facility] 2021-07-08 00:00:00 2021-07-08 00:00:00 Refill Ian [facility] 1.2.840.114 350.1.13.10 4.2.7.2.686 [id number] [facility] 2021-07-02 00:00:00 2021-07-02 00:00:00 [facility] 1.2.840.114 350.1.13.10 4.2.7.2.686 [id number] [facility] 2021-04-10 15:16:18 2021-04-10 15:50:53 [facility] 1.2.840.114 350.1.13.10 4.2.7.2.686 [id number] [facility] 2021-04-10 15:20:00 2021-04-10 15:20:00 [facility] [id number] 2021-04-10 00:00:00 2021-04-10 00:00:00 [facility] 1.2.840.114 350.1.13.10 4.2.7.2.686 [id number] [facility] 2021-04-10 00:00:00 2021-04-10 00:00:00 Letter (Out[facility] 1.2.840.114 350.1.13.10 4.2.7.2.686 [id number] [facility] 2021-04-10 00:00:00 2021-04-10 00:00:00 Orders Only Doctor Unassigned, [place] [facility] 1.2.840.114 350.1.13.10 4.2.7.2.686 [id number] [facility] 2021-04-10 00:00:00 2021-04-10 00:00:00 Orders Only Doctor Unassigned, [place] [facility] 1.2.840.114 350.1.13.10 4.2.7.2.686 [id number] [facility] 2021-04-10 00:00:00 2021-04-10 00:00:00 [facility] 1.2.840.114 350.1.13.10 4.2.7.2.686 [id number] [facility] 2021-03-18 00:00:00 2021-03-18 00:00:00 [facility] 1.2.840.114 350.1.13.10 4.2.7.2.686 [id number] [facility] 2021-03-06 15:40:00 2021-03-06 15:40:00 [facility] [id number] [facility] 2020-09-12 13:39:55 2020-09-12 14:29:39 [facility] 1.2.840.114 350.1.13.10 4.2.7.2.686 [id number] [facility] 2020-09-12 13:40:00 2020-09-12 13:40:00 [facility] [id number] [facility] 2020-09-12 00:00:00 2020-09-12 00:00:00 [facility] 1.2.840.114 350.1.13.10 4.2.7.2.686 [id number] [facility] 2020-08-23 14:33:00 2020-08-24 17:14:00 [facility] 1.2.840.114 350.1.13.10 4.2.7.2.686 [id number] [facility] 2020-08-23 14:33:00 2020-08-24 17:14:00 Outpatient ED[facility] [id number] [facility] 2020-08-23 00:00:00 2020-08-23 00:00:00 Orders Only Doctor Unassigned, [place] [facility] 1.2.840.114 350.1.13.10 4.2.7.2.686 [id number] [facility] 2020-04-19 00:00:00 2020-04-19 00:00:00 Telephone Monty Harvey [facility] 1.2840.114 350.1.13.10 4.2.7.2.686 [id number] [facility] 2020-04-18 16:00:00 2020-04-18 16:00:00 Outpatient R [facility] [id number] [facility] 2020-04-18 12:28:00 2020-04-18 14:10:00 Emergency Gaye Song [facility] 1.2840.114 350.1.13.10 4.2.7.2.686 [id number] [facility] 2020-04-18 10:56:12 2020-04-18 11:52:53 Laboratory Only Pc, Adc Echo Room 1 - Lexi Hair [facility] nal Building 1.284.114 350.1.13.10 4.2.7.2.686 [id number] [id number] [facility] 2020-04-18 11:00:00 2020-04-18 11:00:00 Outpatient R [facility] [id number] [facility] 2020-04-18 00:00:00 2020-04-18 00:00:00 [facility] 1.2.840.114 350.1.13.10 4.2.7.2.686 [id number] [facility] 2020-04-18 00:00:00 2020-04-18 00:00:00 Orders Only Doctor Unassigned, [place] [facility] 1.2.840.114 350.1.13.10 4.2.7.2.686 [id number] [facility] 2020-04-11 16:00:00 2020-04-11 16:00:00 Outpatient R LEXI HAIR [facility] [id number] [facility] 2020-04-04 16:00:00 2020-04-04 16:00:00 Outpatient R [facility] [id number] [facility] 2020-03-19 13:00:00 2020-03-19 13:00:00 Outpatient R DENISE DUARTE [facility] [id number] [facility] 2020-03-07 09:00:00 2020-03-07 09:00:00 Outpatient R [facility] [id number] [facility] 2020-03-05 15:52:42 2020-03-05 16:26:25 [facility] 1.2.840.114 350.1.13.10 4.2.7.2.686 [id number] [facility] 2020-03-05 15:40:00 2020-03-05 15:40:00 [facility] [id number] 2020-03-05 13:00:00 2020-03-05 13:00:00 [facility] [id number] [facility] 2020-03-05 00:00:2020-03-05 00:00:00 [facility] 1.2840.114 350.1.13.10 4.2.7.2.686 [id number] [facility] 2020-02-08 09:00:00 2020-02-08 09:00:00 Outpatient R [facility] [id number] [facility] 2020-02-06 13:00:00 2020-02-06 13:00:00 Outpatient R JOHN GARDNER [facility] [id number] [facility] 2019-12-26 00:00:00 2019-12-26 00:00:00 [facility] 1.2840.114 350.1.13.10 4.2.7.2.686 [id number] [facility] 2019-12-13 00:00:00 2019-12-13 00:00:00 Patient Outreach Kourtney Acharya Mathis Rector 1.840.114 350.1.13.10 4.2.7.2.686 [id number] [facility] 2019-11-28 16:00:00 2019-11-28 16:00:00 Outpatient R [facility] [id number] [facility] 2019-11-07 00:00:00 2019-11-07 00:00:00 Orders Only Doctor Unassigned, [place] [facility] 1.2840.114 350.1.13.10 4.2.7.2.686 [id number] [facility] 2019-10-31 00:00:00 2019-10-31 00:00:[address] [facility] Building 1.2840.114 350.1.13.10 4.2.7.2.686 [id number] [facility] 2019-10-28 11:18:09 2019-10-28 11:48:09 Office Visit John Gardner [facility] Office Building 1.2.840.114 350.1.13.10 4.2.7.2.686 [id number] [facility] 2019-10-28 11:00:00 2019-10-28 11:00:00 Outpatient R JOHN GARDNER [facility] [id number] [facility] 2019-10-20 09:40:43 2019-10-20 10:30:43 Office Visit Lexi Hair [facility] 1.2.840.114 350.1.13.10 4.2.7.2.686 [id number] [facility] 2019-10-20 09:30:00 2019-10-20 09:30:00 Outpatient R LEXI HAIR [facility] [id number] [facility] 2019-10-20 00:00:00 2019-10-20 00:00:00 Letter (Out) Lexi Hair [facility] 1.2.840.114 350.1.13.10 4.2.7.2.686 [id number] [facility] 2019-10-06 00:00:00 2019-10-06 00:00:00 Refill Monty Harvey [facility] Building 1.2.840.114 350.1.13.10 4.2.7.2.686 [id number] [id number] [facility] 2019-03-07 00:00:00 2019-03-07 00:00:00 Telephone Monty Harvey [facility] 1.2.840.114 350.1.13.10 4.2.7.2.686 [id number] 059 [id number] [facility] Results Test Description Test Time Test Comments Results Result Comments Source US GALL BLADDER 10:00:51 ORDERING PHYSICIAN: JANNA MILNER CLINICAL HISTORY: Abdominal pain TECHNIQUE: Real-time sonography of the right upper quadrant was performed.Permanent images were acquired for the patient's medical record. COMPARISON: CT abdomen and pelvis 03/26/2024 FINDINGS: Gallbladder sludge is identified. Gallbladder is mildly distended.Gallbladder wall measures 4.5 mm. Pancreas is not well seen due toshadowing bowel gas. Common duct measures 5 mm. [facility] Ethanol 09:16:39 ALCOHOL<10mg/dL03/26/2024 4:16 AM [facility]<10 [id number] Toxic>100 Depression of SENIOR HEALTH CONSULTANT>400 Fatalities Reported [facility] CT ABDOMEN PELVIS W CONTRAST 07:52:28 Ordering physician: RITA MILNER Indication: Acute abdominal pain and distention COMPARISON: None TECHNIQUE: Axial images of the abdomen and pelvis are performed followingadministration of intravenous contrast material. Images were reformatted inthe coronal and sagittal plane. CT scan was performed according to ALARA(as low as reasonably achievable) policy. FINDINGS: The lung bases are clear. There is a questionable small fillingdefect in the apex of the left ventricle (series 3, image 8). There is a 10mm cyst in the left lobe of the liver (series 3, image 19). The gallbladderis distended, with questionable minimal adjacent inflammatory change,although evaluation is limited by patient respiratory motion. The commonbile duct is at the upper limits of normal for age at 7 mm (series 5, image51). No intrahepatic ductal dilatation is appreciated. The spleen, adrenalglands and pancreas are within normal limits. The kidneys are normal inappearance bilaterally without hydronephrosis. No abdominal aortic aneurysmor dissection is appreciated. There is no free fluid in the pelvis. There are small bilateral inguinalhernias containing only fat at the time of the exam. There is no bowelobstruction, widespread diverticulosis or acute diverticulitis. Theappendix is identified and within normal limits. ?Bone windows through theabdomen and pelvis demonstrate no osseous destructive lesion. [facility] [id number] 06:57:41ORDERING PHYSICIAN: Gina BUTLER HISTORY: chest pain ? COMPARISON: 08/23/2020 FINDINGS: PA and lateral views of the chest. Heart is normal in size. ?There is no pulmonary edema. There are no focalareas of consolidation. There is no pneumothorax. ?There are no pleuraleffusions. Osseous structuresare unremarkable. ? Please note that chest radiography is not a sensitive modality for thedetectionof masses.[facility]TR[facility]LY [facility] [id number] 06:49:11* Test Item Value Reference Range Interpretation Comme nts TROPONIN I (test code = 2563776014) 0.007 ng/mL <=0.034 ERIKA (test code = ERIKA) Reference (Normal) Range (defined by the 99th percentile reference limit): <= 0.034 ng/mL Note: Cardiac troponin begins to rise 3-4 hours after the onset of ischemia. Repeat in 4-6 hours if the sample was drawn within 3-4 hours of the onset of the symptom and found normal. Diagnosis of myocardial injury is made with acute changes in cTn concentrations with at least one serial sample above the 99th percentile upper reference limit (URL), taken together with the patient's clinical presentation. Biotin has been reported to cause a negative bias, interpret results relative to patient's use of biotin. Lab Interpretation (test code = 16851-4) Normal [facility]. METABOLIC PANEL ([id number])2024-03-26 06:38:05* Test Item Value Reference Range Interpretation Comme nts NA (test code = 4036208169) 140 mmol/L 135-145 K (test code = 6942866890) 3.6 mmol/L 3.5-5.0 CL (test code = 2965115143) 104 mmol/L 98-108 CO2 TOTAL (test code = 5711591442) 26 mmol/L 23-31 AGAP (test code = 0224017474) 10 2-16 BUN (test code = 9030143523) 21 mg/dL 7-23 GLUCOSE (test code = 7245658366) 139 mg/dL 70-110 H CREATININE (test code = 2160-0) 1.09 mg/dL 0.60-1.25 TOTAL BILI (test code = 7984526433) 2.5 mg/dL 0.1-1.1 H CALCIUM (test code = 2841406949) 9.4 mg/dL 8.6-10.6 T PROTEIN (test code = 7102503435) 7.9 g/dL 6.3-8.2 ALBUMIN (test code = 0281031519) 4.8 g/dL 3.5-5.0 ALK PHOS (test code = 3460330253) 74 U/L 34-122 ALTv (test code = 1742-6) 215 U/L 5-50 H AST(SGOT) (test code = 7024092478) 210 U/L 13-40 H eGFR (test code = 60372-7) 72.1 mL/min/1.73m2 CKD-EPI eGFR (2020). Assuming creatinine has been stable day-to-day for at least three months, the eGFR indicates Category G2 (60 - 89 mL/min/1.73 m2) Lab Interpretation (test code = 95344-0) Abnormal [facility], [id number] 06:37:45* Test Item Value Reference Range Interpretation Comme nts LIPASE (test code = 2523888265) 90 U/L 0-220 Lab Interpretation (test cod e = 95954-1) Normal [facility] WITH [id number] 06:08:41* Test Item Value Reference Range Interpretation Comme nts WBC (test code = 6690-2) 9.94 4.20-10.70 RBC (test code = 789-8) 4.65 4.26-5.52 HGB (test code = 718-7) 14.5 g/dL 12.2-16.4 HCT (test code = 4544-3) 43.2 % 38.4-49.3 MCV (test code = 787-2) 92.9 fL 81.7-95.6 MCH (test code = 785-6) 31.2 pg 26.1-32.7 MCHC (test code = 786-4) 33.6 g/dL 31.2-35.0 RDW-SD (test code = 48870-5) 45.8 fL 38.5-51.6 RDW-CV (test code = 788-0) 13.6 % 12.1-15.4 PLT (test code = 777-3) 211 150-328 MPV (test code = 70241-4) 12.4 fL 9.8-13.0 NRBC/100 WBC (test code = 6662336693) 0.0 0.0-10.0 NRBC x10^3 (test code = 9547193796) See_Comment [Automated messa ge] The system which generated this result transmitted reference range: 10*3/?L. The reference range was not used to interpret this result as normal/abnormal. GRAN MAT (NEUT) % (test code = 770-8) 77.3 % IMM GRAN % (test code = 3126718232) 0.40 % LYMPH % (test code = 736-9) 13.5 % MONO % (test code = 5905-5) 7.5 % EOS % (test code = 713-8) 0.6 % BASO % (test code = 706-2) 0.7 % GRAN MAT x10^3(ANC) (test code = 4242725580) 7.68 10*3/uL 1.99-6.95 H IMM GRAN x10^3 (test code = 3555558085) 0.04 10*3/uL 0.00-0.06 LYMPH x10^3 (test code = 731-0) 1.34 10*3/uL 1.09-3.23 MONO x10^3 (test code = 742-7) 0.75 10*3/uL 0.36-1.02 EOS x10^3 (test code = 711-2) 0.06 10*3/uL 0.06-0.53 BASO x10^3 (test code = 704-7) 0.07 10*3/uL 0.01-0.09 Lab Interpretation (test code = 54123-6) Abnormal [facility], THIRD [id number] 10:24:51* Test Item Value Reference Range Interpretation Comme nts TSH, THIRD GENERATION (test code = 2821) 1.580 UIU/ML 0.400-4.100 UNLESS OTHERWISE INDICATED, ALL TESTING PERFORMED AT [facility] [address] [place] [address] LUMBER PRESS OPERATOR: PAYAM MEDINA M.D. CLIA NUMBER [id number] [facility] [place]. [id number] LIPID [id number] 09:37:05* Test Item Value Reference Range Interpretation Comme nts CHOLESTEROL (test code = 2210) 196 MG/DL <200 TRIGLYCERIDES (test code = 2232) 124 MG/DL <150 HDL CHOLESTEROL (test code = 2220) 40 MG/DL >39 CALC LDL CHOL (test code = 2237) 133 MG/DL <100 H NOTE: CALCULATED LDL IS BASED ON RONDA-DESOUZA METHOD WHICHINCLUDES ADJUSTABLE TRIGLYCERIDE:VLDL CHOLESTEROL RATIO.THIS FACTOR VARIES BY MEASURED TRIGLYCERIDE AND NON-HDLCHOLESTEROL CONCENTRATIONS WITH INCREASED CALCULATED LDL SEENIN HIGHER TRIGLYCERIDE OR LOWER NON-HDL SPECIMENS. FOR MOREINFORMATION, SEE CLIENT ANNOUNCEMENT AT [email or web address] RISK RATIO LDL/HDL (test code = 2238) 3.33 RATIO <3.55 COMPREHENSIVE METABOLIC [id number] 09:37:05* Test Item Value Reference Range Interpretation Comme nts GLUCOSE (test code = 2217) 99 MG/DL 70-99 BUN (test code = 2207) 18 MG/DL 8-23 CREATININE (test code = 2214) 1.14 MG/DL 0.80-1.40 eGFR (2020 CKD-EPI) (test co de = 12482) 68 ML/MIN/1.73 >60 CALC BUN/CREAT (test code = 2235) 16 RATIO 6-28 SODIUM (test code = 223) 139 MEQ/L 133-146 POTASSIUM (test code = 2228) 4.0 MEQ/L 3.5-5.4 CHLORIDE (test code = 2215) 104 MEQ/L 95-107 CARBON DIOXIDE (test code = 2206) 22 MEQ/L 19-31 CALCIUM (test code = 2209) 9.6 MG/DL 8.5-10.5 PROTEIN, TOTAL (test code = 2229) 7.1 G/DL 6.1-8.3 ALBUMIN (test code = 2201) 4.4 G/DL 3.5-5.2 CALC GLOBULIN (test code = 2240) 2.7 G/DL 1.9-3.7 CALC A/G RATIO (test code = 2234) 1.6 RATIO 1.0-2.6 BILIRUBIN, TOTAL (test code = 2206) 0.6 MG/DL <=1.2 ALKALINE PHOSPHATASE (test code = 2204) 73 U/L 40-125 AST (test code = 2218) 25 U/L 9-50 ALT (test code = 2219) 43 U/L 5-50 HEMOGLOBIN [id number] 08:31:17* Test Item Value Reference Range Interpretation Comme nts HEMOGLOBIN A1c (test code = 07493) 5.4 % 4.2-5.6 CULTURE, [id number] 12:09:16SPECIMEN NUMBER: [id number] CULTURE, URINE SPECIMEN NUMBER: [id number] SPECIMEN COMMENT: URINE SOURCE: URINE REPORT STATUS: FINAL FINAL REPORT: 12/18/2023 NO GROWTH AFTER 36 HOURS INCUBATION UNLESS OTHE RWISE INDICATED, ALL TESTING PERFORMED AT [facility] [address] [place] [address] LUMBER PRESS OPERATOR: PAYAM MEDINA M.D. CLIA NUMBER [id number] [place].[id number], [id number] 00:00:00 * Test Item Value Reference Range Interpretation Comme nts CULTURE, URINE (test code = 83251) SPECIMEN NUMBER: [id number] Kaz Polanco, THIRD [id number] 01:56:14* Test Item Value Reference Range Interpretation Comme nts TSH, THIRD GENERATION (test code = 2821) 3.960 UIU/ML 0.400-4.100 UNLESS OTHERWISE INDICATED, ALL TESTING PERFORMED AT [facility] [address] [place] [address] LUMBER PRESS OPERATOR: PAYAM MEDINA M.D. CLIA NUMBER [id number] [place]. [id number] COMPREHENSIVE METABOLIC [id number] 01:14:49* Test Item Value Reference Range Interpretation Comme nts GLUCOSE (test code = 2217) 97 MG/DL 70-99 BUN (test code = 2208) 16 MG/DL 8-23 CREATININE (test code = 2214) 1.03 MG/DL 0.80-1.40 eGFR (2020 CKD-EPI) (test co de = 17634) 78 ML/MIN/1.73 >60 CALC BUN/CREAT (test code = 2235) 16 RATIO 6-28 SODIUM (test code = 2231) 143 MEQ/L 133-146 POTASSIUM (test code = 2228) 4.6 MEQ/L 3.5-5.4 CHLORIDE (test code = 2214) 106 MEQ/L 95-107 CARBON DIOXIDE (test code = 2205) 23 MEQ/L 19-31 CALCIUM (test code = 2208) 9.7 MG/DL 8.5-10.5 PROTEIN, TOTAL (test code = 2228) 6.9 G/DL 6.1-8.3 ALBUMIN (test code = 2200) 4.8 G/DL 3.5-5.2 CALC GLOBULIN (test code = 2239) 2.1 G/DL 1.9-3.7 CALC A/G RATIO (test code = 223) 2.3 RATIO 1.0-2.6 BILIRUBIN, TOTAL (test code = 2206) 0.9 MG/DL <=1.2 ALKALINE PHOSPHATASE (test code = 2203) 69 U/L 40-125 AST (test code = 2217) 23 U/L 9-50 ALT (test code = 2218) 38 U/L 5-50 LIPID [id number] 01:14:49* Test Item Value Reference Range Interpretation Comme nts CHOLESTEROL (test code = 2209) 207 MG/DL <200 H TRIGLYCERIDES (test code = 2) 116 MG/DL <150 HDL CHOLESTEROL (test code = 2219) 44 MG/DL >39 CALC LDL CHOL (test code = 2236) 140 MG/DL <100 H NOTE: CALCULATED LDL IS BASED ON RONDA-DESOUZA METHOD WHICHINCLUDES ADJUSTABLE TRIGLYCERIDE:VLDL CHOLESTEROL RATIO.THIS FACTOR VARIES BY MEASURED TRIGLYCERIDE AND NON-HDLCHOLESTEROL CONCENTRATIONS WITH INCREASED CALCULATED LDL SEENIN HIGHER TRIGLYCERIDE OR LOWER NON-HDL SPECIMENS. FOR MOREINFORMATION, SEE CLIENT ANNOUNCEMENT AT [email or web address] RISK RATIO LDL/HDL (test code = 223) 3.18 RATIO <3.55 TSH, THIRD [id number] 00:00:00* Test Item Value Reference Range Interpretation Comme nts TSH, THIRD GENERATION (test code = 2821) 3.960 UIU/ML Kaz F JohnCOMPREHENSIVE METABOLIC [id number] 00:00:00* Test Item Value Reference Range Interpretation Comme nts GLUCOSE (test code = 2216) 97 MG/DL BUN (test code = 2207) 16 MG/DL CREATININE (test code = 2214) 1.03 MG/DL eGFR (2020 CKD-EPI) (test co de = 55573) 78 ML/MIN/1.73 CALC BUN/CREAT (test code = 2235) 16 RATIO SODIUM (test code = 2231) 143 MEQ/L POTASSIUM (test code = 2228) 4.6 MEQ/L CHLORIDE (test code = 2215) 106 MEQ/L CARBON DIOXIDE (test code = 2206) 23 MEQ/L CALCIUM (test code = 2209) 9.7 MG/DL PROTEIN, TOTAL (test code = 2229) 6.9 G/DL ALBUMIN (test code = 2201) 4.8 G/DL CALC GLOBULIN (test code = 2240) 2.1 G/DL CALC A/G RATIO (test code = 2234) 2.3 RATIO BILIRUBIN, TOTAL (test code = 2207) 0.9 MG/DL ALKALINE PHOSPHATASE (test code = 2204) 69 U/L AST (test code = 2218) 23 U/L ALT (test code = 2219) 38 U/L Kaz LopezLIPID [id number] 00:00:00* Test Item Value Reference Range Interpretation Comme nts CHOLESTEROL (test code = 2210) 207 MG/DL TRIGLYCERIDES (test code = 2232) 116 MG/DL HDL CHOLESTEROL (test code = 2220) 44 MG/DL CALC LDL CHOL (test code = 2237) 140 MG/DL RISK RATIO LDL/HDL (test cod e = 2238) 3.18 RATIO Kaz Colon JohnTSH, THIRD [id number] 00:00:00* Test Item Value Reference Range Interpretation Comme nts TSH, THIRD GENERATION (test code = 2821) 3.960 UIU/ML Kaz Colon JohnCOMPREHENSIVE METABOLIC [id number] 00:00:00* Test Item Value Reference Range Interpretation Comme nts GLUCOSE (test code = 2217) 97 MG/DL BUN (test code = 2208) 16 MG/DL CREATININE (test code = 2214) 1.03 MG/DL eGFR (2020 CKD-EPI) (test co de = 07676) 78 ML/MIN/1.73 CALC BUN/CREAT (test code = 2235) 16 RATIO SODIUM (test code = 2231) 143 MEQ/L POTASSIUM (test code = 2228) 4.6 MEQ/L CHLORIDE (test code = 2215) 106 MEQ/L CARBON DIOXIDE (test code = 2206) 23 MEQ/L CALCIUM (test code = 2209) 9.7 MG/DL PROTEIN, TOTAL (test code = 2229) 6.9 G/DL ALBUMIN (test code = 2201) 4.8 G/DL CALC GLOBULIN (test code = 2240) 2.1 G/DL CALC A/G RATIO (test code = 2234) 2.3 RATIO BILIRUBIN, TOTAL (test code = 2207) 0.9 MG/DL ALKALINE PHOSPHATASE (test code = 2204) 69 U/L AST (test code = 2218) 23 U/L ALT (test code = 2219) 38 U/L Kaz LopezLIPID [id number] 00:00:00* Test Item Value Reference Range Interpretation Comme nts CHOLESTEROL (test code = 2210) 207 MG/DL TRIGLYCERIDES (test code = 2232) 116 MG/DL HDL CHOLESTEROL (test code = 2220) 44 MG/DL CALC LDL CHOL (test code = 2237) 140 MG/DL RISK RATIO LDL/HDL (test cod e = 2238) 3.18 RATIO Kaz LopezTSH, THIRD [id number] 06:05:55* Test Item Value Reference Range Interpretation Comme nts TSH, THIRD GENERATION (test code = 2821) 0.446 UIU/ML 0.400-4.100 LIPID [id number] 05:00:00* Test Item Value Reference Range Interpretation Comme nts CHOLESTEROL (test code = 2210) 142 MG/DL <200 TRIGLYCERIDES (test code = 2232) 120 MG/DL <150 HDL CHOLESTEROL (test code = 2220) 45 MG/DL >39 CALC LDL CHOL (test code = 2237) 76 MG/DL <100 NOTE: CALCULATED LDL IS BASED ON RONDA-DESOUZA METHOD WHICHINCLUDES ADJUSTABLE TRIGLYCERIDE:VLDL CHOLESTEROL RATIO.THIS FACTOR VARIES BY MEASURED TRIGLYCERIDE AND NON-HDLCHOLESTEROL CONCENTRATIONS WITH INCREASED CALCULATED LDL SEENIN HIGHER TRIGLYCERIDE OR LOWER NON-HDL SPECIMENS. FOR MOREINFORMATION, SEE CLIENT ANNOUNCEMENT AT [email or web address] RISK RATIO LDL/HDL (test code = 2238) 1.69 RATIO <3.55 COMPREHENSIVE METABOLIC [id number] 05:00:00* Test Item Value Reference Range Interpretation Comme nts GLUCOSE (test code = 7) 109 MG/DL 70-99 H BUN (test code = 2208) 15 MG/DL 8-23 CREATININE (test code = 2214) 1.05 MG/DL 0.80-1.40 eGFR (2020 CKD-EPI) (test code = 21311) 76 ML/MIN/1.73 >60 CALC BUN/CREAT (test code = 2235) 14 RATIO 6-28 SODIUM (test code = 223) 144 MEQ/L 133-146 POTASSIUM (test code = 2228) 4.3 MEQ/L 3.5-5.4 CHLORIDE (test code = 2215) 107 MEQ/L 95-107 CARBON DIOXIDE (test code = 2206) 28 MEQ/L 19-31 CALCIUM (test code = 2209) 10.2 MG/DL 8.5-10.5 PROTEIN, TOTAL (test code = 2228) 6.5 G/DL 6.1-8.3 ALBUMIN (test code = 2200) 4.4 G/DL 3.5-5.2 CALC GLOBULIN (test code = 2240) 2.1 G/DL 1.9-3.7 CALC A/G RATIO (test code = 223) 2.1 RATIO 1.0-2.6 BILIRUBIN, TOTAL (test code = 2206) 0.7 MG/DL See_Comment [Automated me ssage] The system which generated this result transmitted reference range: <=1.2. The reference range was not used to interpret this result as normal/abnormal. ALKALINE PHOSPHATASE (test code = 2203) 66 U/L 40-125 AST (test code = 2218) 24 U/L 9-50 ALT (test code = 2219) 44 U/L 5-50 UNLESS OTHERWISE INDICATED, ALL TESTING PERFORMED AT [facility] [address] [place] [address] LUMBER PRESS OPERATOR: PAYAM MEDINA M.D. CLIA NUMBER [id number] [facility] [place]. [id number] COMPREHENSIVE METABOLIC [id number] 00:00:00* Test Item Value Reference Range Interpretation Comme nts GLUCOSE (test code = 7) 109 MG/DL BUN (test code = 8) 15 MG/DL CREATININE (test code = 2214) 1.05 MG/DL eGFR (2020 CKD-EPI) (test co de = 04719) 76 ML/MIN/1.73 CALC BUN/CREAT (test code = 2235) 14 RATIO SODIUM (test code = 2231) 144 MEQ/L POTASSIUM (test code = 2228) 4.3 MEQ/L CHLORIDE (test code = 2215) 107 MEQ/L CARBON DIOXIDE (test code = 2206) 28 MEQ/L CALCIUM (test code = 2209) 10.2 MG/DL PROTEIN, TOTAL (test code = 2229) 6.5 G/DL ALBUMIN (test code = 2201) 4.4 G/DL CALC GLOBULIN (test code = 2240) 2.1 G/DL CALC A/G RATIO (test code = 2234) 2.1 RATIO BILIRUBIN, TOTAL (test code = 2207) 0.7 MG/DL ALKALINE PHOSPHATASE (test code = 2204) 66 U/L AST (test code = 2218) 24 U/L ALT (test code = 2219) 44 U/L Kaz Colon GerlachLIPID [id number] 00:00:00* Test Item Value Reference Range Interpretation Comme nts CHOLESTEROL (test code = 2210) 142 MG/DL TRIGLYCERIDES (test code = 2232) 120 MG/DL HDL CHOLESTEROL (test code = 2220) 45 MG/DL CALC LDL CHOL (test code = 2237) 76 MG/DL RISK RATIO LDL/HDL (test cod e = 2238) 1.69 RATIO Kaz Colon [id number] 00:00:00* Test Item Value Reference Range Interpretation Comme nts TSH, THIRD GENERATION (test code = 2821) 0.446 UIU/ML Kaz Colon GerlachCOMPREHENSIVE METABOLIC [id number] 00:00:00* Test Item Value Reference Range Interpretation Comme nts GLUCOSE (test code = 2217) 109 MG/DL BUN (test code = 2208) 15 MG/DL CREATININE (test code = 2214) 1.05 MG/DL eGFR (2020 CKD-EPI) (test co de = 44377) 76 ML/MIN/1.73 CALC BUN/CREAT (test code = 2235) 14 RATIO SODIUM (test code = 2231) 144 MEQ/L POTASSIUM (test code = 2228) 4.3 MEQ/L CHLORIDE (test code = 2215) 107 MEQ/L CARBON DIOXIDE (test code = 2206) 28 MEQ/L CALCIUM (test code = 2209) 10.2 MG/DL PROTEIN, TOTAL (test code = 2229) 6.5 G/DL ALBUMIN (test code = 2201) 4.4 G/DL CALC GLOBULIN (test code = 2240) 2.1 G/DL CALC A/G RATIO (test code = 2234) 2.1 RATIO BILIRUBIN, TOTAL (test code = 2207) 0.7 MG/DL ALKALINE PHOSPHATASE (test code = 2204) 66 U/L AST (test code = 2218) 24 U/L ALT (test code = 2219) 44 U/L Kaz LopezLIPID [id number] 00:00:00* Test Item Value Reference Range Interpretation Comme nts CHOLESTEROL (test code = 2210) 142 MG/DL TRIGLYCERIDES (test code = 2232) 120 MG/DL HDL CHOLESTEROL (test code = 2220) 45 MG/DL CALC LDL CHOL (test code = 2237) 76 MG/DL RISK RATIO LDL/HDL (test cod e = 2238) 1.69 RATIO Kaz [id number] 00:00:00* Test Item Value Reference Range Interpretation Comme nts TSH, THIRD GENERATION (test code = 2821) 0.446 UIU/ML Kaz HensonH, THIRD [id number] 04:41:42* Test Item Value Reference Range Interpretation Comme nts TSH, THIRD GENERATION (test code = 2821) 1.400 UIU/ML 0.400-4.100 UNLESS OTHERWISE INDICATED, ALL TESTING PERFORMED [facility] [address] [place] [address] [employer] OPERATOR: AB BELL M.D. CLIA NUMBER [id number] [facility] [place] [place]. [id number] LIPID [id number] 03:07:37* Test Item Value Reference Range Interpretation Comme nts CHOLESTEROL (test code = 2210) 160 MG/DL <200 TRIGLYCERIDES (test code = 2232) 172 MG/DL <150 H HDL CHOLESTEROL (test code = 2220) 43 MG/DL >39 CALC LDL CHOL (test code = 2237) 90 MG/DL <100 NOTE: CALCULATED LDL IS BASED ON RONDA-DESOUZA METHOD WHICHINCLUDES ADJUSTABLE TRIGLYCERIDE:VLDL CHOLESTEROL RATIO.THIS FACTOR VARIES BY MEASURED TRIGLYCERIDE AND NON-HDLCHOLESTEROL CONCENTRATIONS WITH INCREASED CALCULATED LDL SEENIN HIGHER TRIGLYCERIDE OR LOWER NON-HDL SPECIMENS. FOR MOREINFORMATION, SEE CLIENT ANNOUNCEMENT AT [email or web address] RISK RATIO LDL/HDL (test code = 2238) 2.09 RATIO <3.55 HEMOGLOBIN [id number] 02:08:32* Test Item Value Reference Range Interpretation Comme nts HEMOGLOBIN A1c (test code = 83220) 5.5 % 4.2-5.6 HEMOGLOBIN [id number] 00:00:00* Test Item Value Reference Range Interpretation Comme nts HEMOGLOBIN A1c (test code = 86526) 5.5 % Kaz Polanco, THIRD [id number] 00:00:00* Test Item Value Reference Range Interpretation Comme nts TSH, THIRD GENERATION (test code = 2821) 1.400 UIU/ML Kaz LopezLIPID [id number] 00:00:00* Test Item Value Reference Range Interpretation Comme nts CHOLESTEROL (test code = 2210) 160 MG/DL TRIGLYCERIDES (test code = 2232) 172 MG/DL HDL CHOLESTEROL (test code = 2220) 43 MG/DL CALC LDL CHOL (test code = 2237) 90 MG/DL RISK RATIO LDL/HDL (test cod e = 2238) 2.09 RATIO Kaz LopezHEMOGLOBIN [id number] 00:00:00* Test Item Value Reference Range Interpretation Comme nts HEMOGLOBIN A1c (test code = 16165) 5.5 % Kaz Polanco, THIRD [id number] 00:00:00* Test Item Value Reference Range Interpretation Comme nts TSH, THIRD GENERATION (test code = 2821) 1.400 UIU/ML Kaz LopezLIPID [id number] 00:00:00* Test Item Value Reference Range Interpretation Comme nts CHOLESTEROL (test code = 2210) 160 MG/DL TRIGLYCERIDES (test code = 2232) 172 MG/DL HDL CHOLESTEROL (test code = 2220) 43 MG/DL CALC LDL CHOL (test code = 2237) 90 MG/DL RISK RATIO LDL/HDL (test cod e = 2238) 2.09 RATIO Kaz Polanco, THIRD [id number] 03:24:15* Test Item Value Reference Range Interpretation Comme nts TSH, THIRD GENERATION (test code = 2821) 0.679 UIU/ML 0.400-4.100 UNLESS OTHERWISE INDICATED, ALL TESTING PERFORMED [facility] [address] [place], [place] [address] LUMBER PRESS OPERATOR: AB BELL M.D. CLIA NUMBER [id number] [place]. [id number] 00:00:00* Test Item Value Reference Range Interpretation Comme nts TSH, THIRD GENERATION (test code = 2821) 0.679 UIU/ML [id number] 00:00:00* Test Item Value Reference Range Interpretation Comme nts TSH, THIRD GENERATION (test code = 2821) 0.679 UIU/ML Kaz Polanco, THIRD [id number] 04:14:15* Test Item Value Reference Range Interpretation Comme nts TSH, THIRD GENERATION (test code = 2821) 4.580 UIU/ML 0.400-4.100 H UNLESS OTHERWISE INDICATED, ALL TESTING PERFORMED [facility] [address] [place], [place] [address] LUMBER PRESS OPERATOR: AB BELL M.D. CLIA NUMBER [id number] [place]. [id number] TSH, THIRD GENERATION [ADDED]2022-02-27 00:00:00* Test Item Value Reference Range Interpretation Comme nts TSH, THIRD GENERATION (test code = 2821) 4.580 UIU/ML Kaz Polanco, THIRD GENERATION [ADDED]2022-02-27 00:00:00* Test Item Value Reference Range Interpretation Comme nts TSH, THIRD GENERATION (test code = 2821) 4.580 UIU/ML Kaz Polanco THIRD [id number] 06:00:57* Test Item Value Reference Range Interpretation Comme nts TSH, THIRD GENERATION (test code = 2821) 0.170 UIU/ML 0.400-4.100 L UNLESS OTHERWISE INDICATED, ALL TESTING PERFORMED [facility] [address] [place] [address] LUMBER PRESS OPERATOR: AB BELL M.D. CLIA NUMBER [id number] [place]. [id number] HEMOGLOBIN [id number] 04:30:06* Test Item Value Reference Range Interpretation Comme nts HEMOGLOBIN A1c (test code = 50811) 5.5 % 4.2-5.6 HEMOGLOBIN [id number] 00:00:00* Test Item Value Reference Range Interpretation Comme nts HEMOGLOBIN A1c (test code = 99507) 5.5 % Kaz Isaiah AustinHEMOGLOBIN [id number] 00:00:00* Test Item Value Reference Range Interpretation Comme nts HEMOGLOBIN A1c (test code = 83743) 5.5 % HEMOGLOBIN [id number] 00:00:00* Test Item Value Reference Range Interpretation Comme nts HEMOGLOBIN A1c (test code = 93839) 5.5 % [id number] 00:00:00* Test Item Value Reference Range Interpretation Comme nts TSH, THIRD GENERATION (test code = 2821) 0.170 UIU/ML [id number] 00:00:00* Test Item Value Reference Range Interpretation Comme nts TSH, THIRD GENERATION (test code = 2821) 0.170 UIU/ML [id number] 00:00:00* Test Item Value Reference Range Interpretation Comme nts TSH, THIRD GENERATION (test code = 2821) 0.170 UIU/ML Kaz Colon AustinHEMOGLOBIN [id number] 00:00:00* Test Item Value Reference Range Interpretation Comme nts HEMOGLOBIN A1c (test code = 45759) 5.5 % Kaz Colon [id number] 00:00:00* Test Item Value Reference Range Interpretation Comme nts TSH, THIRD GENERATION (test code = 2821) 0.170 UIU/ML Kaz Colon AustinVITAMIN D, 25 [id number] 00:00:00* Test Item Value Reference Range Interpretation Comme nts VITAMIN D, 25 OH (test code = 4958) 31 NG/ML Kaz Colon [id number] 00:00:00* Test Item Value Reference Range Interpretation Comme nts TSH, THIRD GENERATION (test code = 2821) 0.659 UIU/ML Kaz Colon [id number] 00:00:00* Test Item Value Reference Range Interpretation Comme nts RPR RESULT (test code = 3501) NON-REACTIVE RPR TITER (test code = 3500) NOT INDIC. TITER Kaz LopezCBC W/AUTO [id number] 00:00:00* Test Item Value Reference Range Interpretation Comme nts WBC (test code = 1001) 8.8 K/UL RBC (test code = 1002) 4.12 M/UL HEMOGLOBIN (test code = 1003) 13.0 G/DL HEMATOCRIT (test code = 1004) 36.3 % MCV (test code = 1005) 88.1 fL MCH (test code = 1006) 31.6 PG MCHC (test code = 1007) 35.8 G/DL RDW (test code = 1038) 13.3 % NEUTROPHILS (test code = 1008) 71.5 % LYMPHOCYTES (test code = 1010) 17.8 % MONOCYTES (test code = 1011) 8.5 % EOSINOPHILS (test code = 1012) 0.8 % BASOPHILS (test code = 1013) 0.9 % IMMATURE GRANULOCYTES (test code = 1036) 0.5 % NUCLEATED RBCS (test code = 1065) 0.0 /100WBC'S PLATELET COUNT (test code = 1015) 239 K/UL ABSOLUTE NEUTROPHILS (test c ode = 1066) 6.29 K/UL ABSOLUTE LYMPHOCYTES (test c ode = 1067) 1.57 K/UL ABSOLUTE MONOCYTES (test cod e = 1068) 0.75 K/UL ABSOLUTE EOSINOPHILS (test c ode = 1040) 0.07 K/UL ABSOLUTE BASOPHILS (test cod e = 1069) 0.08 K/UL ABS IMMATURE GRANULOCYTES (t est code = 1020) 0.04 K/UL ABS NUCLEATED RBCS (test cod e = 26777) 0.00 K/UL Kaz LopezCBC W/AUTO [id number] 00:00:00* Test Item Value Reference Range Interpretation Comme nts WBC (test code = 1001) 8.8 K/UL RBC (test code = 1002) 4.12 M/UL HEMOGLOBIN (test code = 1003) 13.0 G/DL HEMATOCRIT (test code = 1004) 36.3 % MCV (test code = 1005) 88.1 fL MCH (test code = 1006) 31.6 PG MCHC (test code = 1007) 35.8 G/DL RDW (test code = 1038) 13.3 % NEUTROPHILS (test code = 1008) 71.5 % LYMPHOCYTES (test code = 1010) 17.8 % MONOCYTES (test code = 1011) 8.5 % EOSINOPHILS (test code = 1012) 0.8 % BASOPHILS (test code = 1013) 0.9 % IMMATURE GRANULOCYTES (test code = 1036) 0.5 % NUCLEATED RBCS (test code = 1065) 0.0 /100WBC'S PLATELET COUNT (test code = 1015) 239 K/UL ABSOLUTE NEUTROPHILS (test c ode = 1066) 6.29 K/UL ABSOLUTE LYMPHOCYTES (test c ode = 1067) 1.57 K/UL ABSOLUTE MONOCYTES (test cod e = 1068) 0.75 K/UL ABSOLUTE EOSINOPHILS (test c ode = 1040) 0.07 K/UL ABSOLUTE BASOPHILS (test cod e = 1069) 0.08 K/UL ABS IMMATURE GRANULOCYTES (t est code = 1020) 0.04 K/UL ABS NUCLEATED RBCS (test cod e = 04884) 0.00 K/UL CBC W/AUTO [id number] 00:00:00* Test Item Value Reference Range Interpretation Comme nts WBC (test code = 1001) 8.8 K/UL RBC (test code = 1002) 4.12 M/UL HEMOGLOBIN (test code = 1003) 13.0 G/DL HEMATOCRIT (test code = 1004) 36.3 % MCV (test code = 1005) 88.1 fL MCH (test code = 1006) 31.6 PG MCHC (test code = 1007) 35.8 G/DL RDW (test code = 1038) 13.3 % NEUTROPHILS (test code = 1008) 71.5 % LYMPHOCYTES (test code = 1010) 17.8 % MONOCYTES (test code = 1011) 8.5 % EOSINOPHILS (test code = 1012) 0.8 % BASOPHILS (test code = 1013) 0.9 % IMMATURE GRANULOCYTES (test code = 1036) 0.5 % NUCLEATED RBCS (test code = 1065) 0.0 /100WBC'S PLATELET COUNT (test code = 1015) 239 K/UL ABSOLUTE NEUTROPHILS (test c ode = 1066) 6.29 K/UL ABSOLUTE LYMPHOCYTES (test c ode = 1067) 1.57 K/UL ABSOLUTE MONOCYTES (test cod e = 1068) 0.75 K/UL ABSOLUTE EOSINOPHILS (test c ode = 1040) 0.07 K/UL ABSOLUTE BASOPHILS (test cod e = 1069) 0.08 K/UL ABS IMMATURE GRANULOCYTES (t est code = 1020) 0.04 K/UL ABS NUCLEATED RBCS (test cod e = 24554) 0.00 K/UL VITAMIN [id number] 00:00:00* Test Item Value Reference Range Interpretation Comme nts VITAMIN B-12 (test code = 2840) 929 PG/ML VITAMIN [id number] 00:00:00* Test Item Value Reference Range Interpretation Comme nts VITAMIN B-12 (test code = 2840) 929 PG/ML VITAMIN [id number] 00:00:00* Test Item Value Reference Range Interpretation Comme nts VITAMIN B-12 (test code = 2840) 929 PG/ML Kaz LopezVITAMIN D, 25 [id number] 00:00:00* Test Item Value Reference Range Interpretation Comme nts VITAMIN D, 25 OH (test code = 4958) 31 NG/ML [id number] 00:00:00* Test Item Value Reference Range Interpretation Comme nts TSH, THIRD GENERATION (test code = 2821) 0.659 UIU/ML [id number] 00:00:00* Test Item Value Reference Range Interpretation Comme nts TSH, THIRD GENERATION (test code = 2821) 0.659 UIU/ML [id number] 00:00:00* Test Item Value Reference Range Interpretation Comme nts RPR RESULT (test code = 3501) NON-REACTIVE RPR TITER (test code = 3500) NOT INDIC. TITER [id number] 00:00:00* Test Item Value Reference Range Interpretation Comme nts RPR RESULT (test code = 3501) NON-REACTIVE RPR TITER (test code = 3500) NOT INDIC. TITER VITAMIN D, 25 [id number] 00:00:00* Test Item Value Reference Range Interpretation Comme nts VITAMIN D, 25 OH (test code = 4958) 31 NG/ML Kaz [id number] 00:00:00* Test Item Value Reference Range Interpretation Comme nts TSH, THIRD GENERATION (test code = 2821) 0.659 UIU/ML Kaz [id number] 00:00:00* Test Item Value Reference Range Interpretation Comme nts RPR RESULT (test code = 3501) NON-REACTIVE RPR TITER (test code = 3500) NOT INDIC. TITER Kaz LopezCBC W/AUTO [id number] 00:00:00* Test Item Value Reference Range Interpretation Comme nts WBC (test code = 1001) 8.8 K/UL RBC (test code = 1002) 4.12 M/UL HEMOGLOBIN (test code = 1003) 13.0 G/DL HEMATOCRIT (test code = 1004) 36.3 % MCV (test code = 1005) 88.1 fL MCH (test code = 1006) 31.6 PG MCHC (test code = 1007) 35.8 G/DL RDW (test code = 1038) 13.3 % NEUTROPHILS (test code = 1008) 71.5 % LYMPHOCYTES (test code = 1010) 17.8 % MONOCYTES (test code = 1011) 8.5 % EOSINOPHILS (test code = 1012) 0.8 % BASOPHILS (test code = 1013) 0.9 % IMMATURE GRANULOCYTES (test code = 1036) 0.5 % NUCLEATED RBCS (test code = 1065) 0.0 /100WBC'S PLATELET COUNT (test code = 1015) 239 K/UL ABSOLUTE NEUTROPHILS (test c ode = 1066) 6.29 K/UL ABSOLUTE LYMPHOCYTES (test c ode = 1067) 1.57 K/UL ABSOLUTE MONOCYTES (test cod e = 1068) 0.75 K/UL ABSOLUTE EOSINOPHILS (test c ode = 1040) 0.07 K/UL ABSOLUTE BASOPHILS (test cod e = 1069) 0.08 K/UL ABS IMMATURE GRANULOCYTES (t est code = 1020) 0.04 K/UL ABS NUCLEATED RBCS (test cod e = 42621) 0.00 K/UL Kaz LopezVITAMIN [id number] 00:00:00* Test Item Value Reference Range Interpretation Comme nts VITAMIN B-12 (test code = 2840) 929 PG/ML Kaz LopezCOMPREHENSIVE METABOLIC [id number] 00:00:00* Test Item Value Reference Range Interpretation Comme nts GLUCOSE (test code = 2217) 93 MG/DL BUN (test code = 2208) 13 MG/DL CREATININE (test code = 2214) 0.90 MG/DL eGFR AMER. (test cod e = 75789) 101 ML/MIN/1.73 eGFR NON- AMER. (test code = 77790) 87 ML/MIN/1.73 CALC BUN/CREAT (test code = 2235) 14 RATIO SODIUM (test code = 2231) 141 MEQ/L POTASSIUM (test code = 2228) 4.1 MEQ/L CHLORIDE (test code = 2215) 99 MEQ/L CARBON DIOXIDE (test code = 2206) 28 MEQ/L CALCIUM (test code = 2209) 9.9 MG/DL PROTEIN, TOTAL (test code = 2229) 6.5 G/DL ALBUMIN (test code = 2201) 4.5 G/DL CALC GLOBULIN (test code = 2240) 2.0 G/DL CALC A/G RATIO (test code = 2234) 2.3 RATIO BILIRUBIN, TOTAL (test code = 2207) 0.6 MG/DL ALKALINE PHOSPHATASE (test code = 2204) 63 U/L AST (test code = 2218) 24 U/L ALT (test code = 2219) 48 U/L COMPREHENSIVE METABOLIC [id number] 00:00:00* Test Item Value Reference Range Interpretation Comme nts GLUCOSE (test code = 2217) 93 MG/DL BUN (test code = 2208) 13 MG/DL CREATININE (test code = 2214) 0.90 MG/DL eGFR AMER. (test cod e = 78501) 101 ML/MIN/1.73 eGFR NON- AMER. (test code = 14085) 87 ML/MIN/1.73 CALC BUN/CREAT (test code = 2235) 14 RATIO SODIUM (test code = 2231) 141 MEQ/L POTASSIUM (test code = 2228) 4.1 MEQ/L CHLORIDE (test code = 2215) 99 MEQ/L CARBON DIOXIDE (test code = 2206) 28 MEQ/L CALCIUM (test code = 2209) 9.9 MG/DL PROTEIN, TOTAL (test code = 2229) 6.5 G/DL ALBUMIN (test code = 2201) 4.5 G/DL CALC GLOBULIN (test code = 2240) 2.0 G/DL CALC A/G RATIO (test code = 2234) 2.3 RATIO BILIRUBIN, TOTAL (test code = 2207) 0.6 MG/DL ALKALINE PHOSPHATASE (test code = 2204) 63 U/L AST (test code = 2218) 24 U/L ALT (test code = 2219) 48 U/L Kaz LopezCOMPREHENSIVE METABOLIC [id number] 00:00:00* Test Item Value Reference Range Interpretation Comme nts GLUCOSE (test code = 2217) 93 MG/DL BUN (test code = 2208) 13 MG/DL CREATININE (test code = 2214) 0.90 MG/DL eGFR AMER. (test cod e = 45019) 101 ML/MIN/1.73 eGFR NON- AMER. (test code = 97191) 87 ML/MIN/1.73 CALC BUN/CREAT (test code = 2235) 14 RATIO SODIUM (test code = 2231) 141 MEQ/L POTASSIUM (test code = 2228) 4.1 MEQ/L CHLORIDE (test code = 2215) 99 MEQ/L CARBON DIOXIDE (test code = 2206) 28 MEQ/L CALCIUM (test code = 2209) 9.9 MG/DL PROTEIN, TOTAL (test code = 2229) 6.5 G/DL ALBUMIN (test code = 2201) 4.5 G/DL CALC GLOBULIN (test code = 2240) 2.0 G/DL CALC A/G RATIO (test code = 2234) 2.3 RATIO BILIRUBIN, TOTAL (test code = 2207) 0.6 MG/DL ALKALINE PHOSPHATASE (test code = 2204) 63 U/L AST (test code = 2218) 24 U/L ALT (test code = 2219) 48 U/L Kaz Colon AustinHEMOGLOBIN [id number] 00:00:00* Test Item Value Reference Range Interpretation Comme nts HEMOGLOBIN A1c (test code = 65076) 5.9 % Kaz F AustinHEMOGLOBIN [id number] 00:00:00* Test Item Value Reference Range Interpretation Comme nts HEMOGLOBIN A1c (test code = 33860) 5.9 % HEMOGLOBIN [id number] 00:00:00* Test Item Value Reference Range Interpretation Comme nts HEMOGLOBIN A1c (test code = 15355) 5.9 % HEMOGLOBIN [id number] 00:00:00* Test Item Value Reference Range Interpretation Comme nts HEMOGLOBIN A1c (test code = 15999) 5.9 % Kaz Colon Nina (HEPATIC) FUNCTION [id number] 00:00:00* Test Item Value Reference Range Interpretation Comme nts PROTEIN, TOTAL (test code = 2229) 6.7 G/DL ALBUMIN (test code = 2201) 4.5 G/DL BILIRUBIN, TOTAL (test code = 2207) 0.7 MG/DL BILIRUBIN, DIRECT (test code = 2021) 0.2 MG/DL ALKALINE PHOSPHATASE (test c ode = 2204) 61 U/L AST (test code = 2218) 31 U/L ALT (test code = 2219) 54 U/L Kaz Colon JohnCOMPREHENSIVE METABOLIC [id number] 00:00:00* Test Item Value Reference Range Interpretation Comme nts GLUCOSE (test code = 2217) 112 MG/DL BUN (test code = 2208) 13 MG/DL CREATININE (test code = 2214) 1.01 MG/DL eGFR AMER. (test cod e = 29232) 88 ML/MIN/1.73 eGFR NON- AMER. (test code = 27936) 76 ML/MIN/1.73 CALC BUN/CREAT (test code = 2235) 13 RATIO SODIUM (test code = 2231) 142 MEQ/L POTASSIUM (test code = 2228) 3.6 MEQ/L CHLORIDE (test code = 2215) 102 MEQ/L CARBON DIOXIDE (test code = 2206) 27 MEQ/L CALCIUM (test code = 2209) 9.5 MG/DL PROTEIN, TOTAL (test code = 2229) 6.7 G/DL ALBUMIN (test code = 2201) 4.5 G/DL CALC GLOBULIN (test code = 2240) 2.2 G/DL CALC A/G RATIO (test code = 2234) 2.0 RATIO BILIRUBIN, TOTAL (test code = 2207) 0.7 MG/DL ALKALINE PHOSPHATASE (test code = 2204) 61 U/L AST (test code = 2218) 31 U/L ALT (test code = 2219) 54 U/L Kaz F JohnCOMPREHENSIVE METABOLIC [id number] 00:00:00* Test Item Value Reference Range Interpretation Comme nts GLUCOSE (test code = 2217) 112 MG/DL BUN (test code = 2208) 13 MG/DL CREATININE (test code = 2214) 1.01 MG/DL eGFR AMER. (test cod e = 73117) 88 ML/MIN/1.73 eGFR NON- AMER. (test code = 70408) 76 ML/MIN/1.73 CALC BUN/CREAT (test code = 2235) 13 RATIO SODIUM (test code = 2231) 142 MEQ/L POTASSIUM (test code = 2228) 3.6 MEQ/L CHLORIDE (test code = 2215) 102 MEQ/L CARBON DIOXIDE (test code = 2206) 27 MEQ/L CALCIUM (test code = 2209) 9.5 MG/DL PROTEIN, TOTAL (test code = 2229) 6.7 G/DL ALBUMIN (test code = 2201) 4.5 G/DL CALC GLOBULIN (test code = 2240) 2.2 G/DL CALC A/G RATIO (test code = 2234) 2.0 RATIO BILIRUBIN, TOTAL (test code = 2207) 0.7 MG/DL ALKALINE PHOSPHATASE (test code = 2204) 61 U/L AST (test code = 2218) 31 U/L ALT (test code = 2219) 54 U/L LIVER (HEPATIC) FUNCTION [id number] 00:00:00* Test Item Value Reference Range Interpretation Comme nts PROTEIN, TOTAL (test code = 2229) 6.7 G/DL ALBUMIN (test code = 2201) 4.5 G/DL BILIRUBIN, TOTAL (test code = 2207) 0.7 MG/DL BILIRUBIN, DIRECT (test code = 2021) 0.2 MG/DL ALKALINE PHOSPHATASE (test c ode = 2204) 61 U/L AST (test code = 2218) 31 U/L ALT (test code = 2219) 54 U/L LIVER (HEPATIC) FUNCTION [id number] 00:00:00* Test Item Value Reference Range Interpretation Comme nts PROTEIN, TOTAL (test code = 2229) 6.7 G/DL ALBUMIN (test code = 2201) 4.5 G/DL BILIRUBIN, TOTAL (test code = 2207) 0.7 MG/DL BILIRUBIN, DIRECT (test code = 2021) 0.2 MG/DL ALKALINE PHOSPHATASE (test c ode = 2204) 61 U/L AST (test code = 2218) 31 U/L ALT (test code = 2219) 54 U/L Kaz LopezCOMPREHENSIVE METABOLIC [id number] 00:00:00* Test Item Value Reference Range Interpretation Comme nts GLUCOSE (test code = 2217) 112 MG/DL BUN (test code = 2208) 13 MG/DL CREATININE (test code = 2214) 1.01 MG/DL eGFR AMER. (test cod e = 73849) 88 ML/MIN/1.73 eGFR NON- AMER. (test code = 09589) 76 ML/MIN/1.73 CALC BUN/CREAT (test code = 2235) 13 RATIO SODIUM (test code = 2231) 142 MEQ/L POTASSIUM (test code = 2228) 3.6 MEQ/L CHLORIDE (test code = 2215) 102 MEQ/L CARBON DIOXIDE (test code = 2206) 27 MEQ/L CALCIUM (test code = 2209) 9.5 MG/DL PROTEIN, TOTAL (test code = 2229) 6.7 G/DL ALBUMIN (test code = 2201) 4.5 G/DL CALC GLOBULIN (test code = 2240) 2.2 G/DL CALC A/G RATIO (test code = 2234) 2.0 RATIO BILIRUBIN, TOTAL (test code = 2207) 0.7 MG/DL ALKALINE PHOSPHATASE (test code = 2204) 61 U/L AST (test code = 2218) 31 U/L ALT (test code = 2219) 54 U/L Kaz Colon GerlachCOMPREHENSIVE METABOLIC [id number] 00:00:00* Test Item Value Reference Range Interpretation Comme nts GLUCOSE (test code = 2217) 122 MG/DL BUN (test code = 2208) 19 MG/DL CREATININE (test code = 2214) 1.11 MG/DL eGFR AMER. (test cod e = 75735) 79 ML/MIN/1.73 eGFR NON- AMER. (test code = 73586) 68 ML/MIN/1.73 CALC BUN/CREAT (test code = 2235) 17 RATIO SODIUM (test code = 2231) 142 MEQ/L POTASSIUM (test code = 2228) 4.1 MEQ/L CHLORIDE (test code = 2215) 102 MEQ/L CARBON DIOXIDE (test code = 2206) 27 MEQ/L CALCIUM (test code = 2209) 9.7 MG/DL PROTEIN, TOTAL (test code = 2229) 6.8 G/DL ALBUMIN (test code = 2201) 4.6 G/DL CALC GLOBULIN (test code = 2240) 2.2 G/DL CALC A/G RATIO (test code = 2234) 2.1 RATIO BILIRUBIN, TOTAL (test code = 2207) 0.8 MG/DL ALKALINE PHOSPHATASE (test code = 2204) 49 U/L AST (test code = 2218) 25 U/L ALT (test code = 2219) 47 U/L COMPREHENSIVE METABOLIC [id number] 00:00:00* Test Item Value Reference Range Interpretation Comme nts GLUCOSE (test code = 2217) 122 MG/DL BUN (test code = 2208) 19 MG/DL CREATININE (test code = 2214) 1.11 MG/DL eGFR AMER. (test cod e = 43377) 79 ML/MIN/1.73 eGFR NON- AMER. (test code = 87297) 68 ML/MIN/1.73 CALC BUN/CREAT (test code = 2235) 17 RATIO SODIUM (test code = 2231) 142 MEQ/L POTASSIUM (test code = 2228) 4.1 MEQ/L CHLORIDE (test code = 2215) 102 MEQ/L CARBON DIOXIDE (test code = 2206) 27 MEQ/L CALCIUM (test code = 2209) 9.7 MG/DL PROTEIN, TOTAL (test code = 2229) 6.8 G/DL ALBUMIN (test code = 2201) 4.6 G/DL CALC GLOBULIN (test code = 2240) 2.2 G/DL CALC A/G RATIO (test code = 2234) 2.1 RATIO BILIRUBIN, TOTAL (test code = 2207) 0.8 MG/DL ALKALINE PHOSPHATASE (test code = 2204) 49 U/L AST (test code = 2218) 25 U/L ALT (test code = 2219) 47 U/L Kaz F AustinCOMPREHENSIVE METABOLIC [id number] 00:00:00* Test Item Value Reference Range Interpretation Comme nts GLUCOSE (test code = 2217) 122 MG/DL BUN (test code = 2208) 19 MG/DL CREATININE (test code = 2214) 1.11 MG/DL eGFR AMER. (test cod e = 68764) 79 ML/MIN/1.73 eGFR NON- AMER. (test code = 39597) 68 ML/MIN/1.73 CALC BUN/CREAT (test code = 2235) 17 RATIO SODIUM (test code = 2231) 142 MEQ/L POTASSIUM (test code = 2228) 4.1 MEQ/L CHLORIDE (test code = 2215) 102 MEQ/L CARBON DIOXIDE (test code = 2206) 27 MEQ/L CALCIUM (test code = 2209) 9.7 MG/DL PROTEIN, TOTAL (test code = 2229) 6.8 G/DL ALBUMIN (test code = 2201) 4.6 G/DL CALC GLOBULIN (test code = 2240) 2.2 G/DL CALC A/G RATIO (test code = 2234) 2.1 RATIO BILIRUBIN, TOTAL (test code = 2207) 0.8 MG/DL ALKALINE PHOSPHATASE (test code = 2204) 49 U/L AST (test code = 2218) 25 U/L ALT (test code = 2219) 47 U/L Kaz LopezPROTHROMBIN TIME (PT)2021-02-10 00:00:00* Test Item Value Reference Range Interpretation Comme nts PROTHROMBIN TIME (PT) (test code = 1402) 13.0 SECONDS INR (test code = 65759) 1.0 Kaz LopezCBC W/AUTO [id number] 00:00:00* Test Item Value Reference Range Interpretation Comme nts WBC (test code = 1001) 7.1 K/UL RBC (test code = 1002) 4.32 M/UL HEMOGLOBIN (test code = 1003) 13.4 G/DL HEMATOCRIT (test code = 1004) 38.1 % MCV (test code = 1005) 88.2 fL MCH (test code = 1006) 31.0 PG MCHC (test code = 1007) 35.2 G/DL RDW (test code = 1038) 13.7 % NEUTROPHILS (test code = 1008) 79.9 % LYMPHOCYTES (test code = 1010) 12.8 % MONOCYTES (test code = 1011) 5.9 % EOSINOPHILS (test code = 1012) 0.4 % BASOPHILS (test code = 1013) 0.7 % IMMATURE GRANULOCYTES (test code = 1036) 0.3 % NUCLEATED RBCS (test code = 1065) 0.0 /100WBC'S PLATELET COUNT (test code = 1015) 207 K/UL ABSOLUTE NEUTROPHILS (test c ode = 1066) 5.69 K/UL ABSOLUTE LYMPHOCYTES (test c ode = 1067) 0.91 K/UL ABSOLUTE MONOCYTES (test cod e = 1068) 0.42 K/UL ABSOLUTE EOSINOPHILS (test c ode = 1040) 0.03 K/UL ABSOLUTE BASOPHILS (test cod e = 1069) 0.05 K/UL ABS IMMATURE GRANULOCYTES (t est code = 1020) 0.02 K/UL ABS NUCLEATED RBCS (test cod e = 51034) 0.00 K/UL CBC W/AUTO [id number] 00:00:00* Test Item Value Reference Range Interpretation Comme nts WBC (test code = 1001) 7.1 K/UL RBC (test code = 1002) 4.32 M/UL HEMOGLOBIN (test code = 1003) 13.4 G/DL HEMATOCRIT (test code = 1004) 38.1 % MCV (test code = 1005) 88.2 fL MCH (test code = 1006) 31.0 PG MCHC (test code = 1007) 35.2 G/DL RDW (test code = 1038) 13.7 % NEUTROPHILS (test code = 1008) 79.9 % LYMPHOCYTES (test code = 1010) 12.8 % MONOCYTES (test code = 1011) 5.9 % EOSINOPHILS (test code = 1012) 0.4 % BASOPHILS (test code = 1013) 0.7 % IMMATURE GRANULOCYTES (test code = 1036) 0.3 % NUCLEATED RBCS (test code = 1065) 0.0 /100WBC'S PLATELET COUNT (test code = 1015) 207 K/UL ABSOLUTE NEUTROPHILS (test c ode = 1066) 5.69 K/UL ABSOLUTE LYMPHOCYTES (test c ode = 1067) 0.91 K/UL ABSOLUTE MONOCYTES (test cod e = 1068) 0.42 K/UL ABSOLUTE EOSINOPHILS (test c ode = 1040) 0.03 K/UL ABSOLUTE BASOPHILS (test cod e = 1069) 0.05 K/UL ABS IMMATURE GRANULOCYTES (t est code = 1020) 0.02 K/UL ABS NUCLEATED RBCS (test cod e = 75103) 0.00 K/UL CBC W/AUTO [id number] 00:00:00* Test Item Value Reference Range Interpretation Comme nts WBC (test code = 1001) 7.1 K/UL RBC (test code = 1002) 4.32 M/UL HEMOGLOBIN (test code = 1003) 13.4 G/DL HEMATOCRIT (test code = 1004) 38.1 % MCV (test code = 1005) 88.2 fL MCH (test code = 1006) 31.0 PG MCHC (test code = 1007) 35.2 G/DL RDW (test code = 1038) 13.7 % NEUTROPHILS (test code = 1008) 79.9 % LYMPHOCYTES (test code = 1010) 12.8 % MONOCYTES (test code = 1011) 5.9 % EOSINOPHILS (test code = 1012) 0.4 % BASOPHILS (test code = 1013) 0.7 % IMMATURE GRANULOCYTES (test code = 1036) 0.3 % NUCLEATED RBCS (test code = 1065) 0.0 /100WBC'S PLATELET COUNT (test code = 1015) 207 K/UL ABSOLUTE NEUTROPHILS (test c ode = 1066) 5.69 K/UL ABSOLUTE LYMPHOCYTES (test c ode = 1067) 0.91 K/UL ABSOLUTE MONOCYTES (test cod e = 1068) 0.42 K/UL ABSOLUTE EOSINOPHILS (test c ode = 1040) 0.03 K/UL ABSOLUTE BASOPHILS (test cod e = 1069) 0.05 K/UL ABS IMMATURE GRANULOCYTES (t est code = 1020) 0.02 K/UL ABS NUCLEATED RBCS (test cod e = 50847) 0.00 K/UL Kaz LopezPROTHROMBIN TIME (PT)2021-02-10 00:00:00* Test Item Value Reference Range Interpretation Comme nts PROTHROMBIN TIME (PT) (test code = 1402) 13.0 SECONDS INR (test code = 90777) 1.0 PROTHROMBIN TIME (PT)2021-02-10 00:00:00* Test Item Value Reference Range Interpretation Comme nts PROTHROMBIN TIME (PT) (test code = 1402) 13.0 SECONDS INR (test code = 82802) 1.0 Kaz LopezCBC W/AUTO [id number] 00:00:00* Test Item Value Reference Range Interpretation Comme nts WBC (test code = 1001) 7.1 K/UL RBC (test code = 1002) 4.32 M/UL HEMOGLOBIN (test code = 1003) 13.4 G/DL HEMATOCRIT (test code = 1004) 38.1 % MCV (test code = 1005) 88.2 fL MCH (test code = 1006) 31.0 PG MCHC (test code = 1007) 35.2 G/DL RDW (test code = 1038) 13.7 % NEUTROPHILS (test code = 1008) 79.9 % LYMPHOCYTES (test code = 1010) 12.8 % MONOCYTES (test code = 1011) 5.9 % EOSINOPHILS (test code = 1012) 0.4 % BASOPHILS (test code = 1013) 0.7 % IMMATURE GRANULOCYTES (test code = 1036) 0.3 % NUCLEATED RBCS (test code = 1065) 0.0 /100WBC'S PLATELET COUNT (test code = 1015) 207 K/UL ABSOLUTE NEUTROPHILS (test c ode = 1066) 5.69 K/UL ABSOLUTE LYMPHOCYTES (test c ode = 1067) 0.91 K/UL ABSOLUTE MONOCYTES (test cod e = 1068) 0.42 K/UL ABSOLUTE EOSINOPHILS (test c ode = 1040) 0.03 K/UL ABSOLUTE BASOPHILS (test cod e = 1069) 0.05 K/UL ABS IMMATURE GRANULOCYTES (t est code = 1020) 0.02 K/UL ABS NUCLEATED RBCS (test cod e = 70783) 0.00 K/UL Kaz Isaiah AustinLIPID [id number] 00:00:00* Test Item Value Reference Range Interpretation Comme nts CHOLESTEROL (test code = 2210) 195 MG/DL TRIGLYCERIDES (test code = 2232) 154 MG/DL HDL CHOLESTEROL (test code = 2220) 59 MG/DL CALC LDL CHOL (test code = 2237) 109 MG/DL RISK RATIO LDL/HDL (test cod e = 2238) 1.85 RATIO Kaz Colon JohnCOMPREHENSIVE METABOLIC [id number] 00:00:00* Test Item Value Reference Range Interpretation Comme nts GLUCOSE (test code = 2217) 144 MG/DL BUN (test code = 2208) 23 MG/DL CREATININE (test code = 2214) 1.09 MG/DL eGFR AMER. (test cod e = 56380) 80 ML/MIN/1.73 eGFR NON- AMER. (test code = 53871) 69 ML/MIN/1.73 CALC BUN/CREAT (test code = 2235) 21 RATIO SODIUM (test code = 2231) 140 MEQ/L POTASSIUM (test code = 2228) 3.8 MEQ/L CHLORIDE (test code = 2215) 99 MEQ/L CARBON DIOXIDE (test code = 2206) 27 MEQ/L CALCIUM (test code = 2209) 10.4 MG/DL PROTEIN, TOTAL (test code = 2229) 7.4 G/DL ALBUMIN (test code = 2201) 4.6 G/DL CALC GLOBULIN (test code = 2240) 2.8 G/DL CALC A/G RATIO (test code = 2234) 1.6 RATIO BILIRUBIN, TOTAL (test code = 2207) 0.7 MG/DL ALKALINE PHOSPHATASE (test code = 2204) 56 U/L AST (test code = 2218) 14 U/L ALT (test code = 2219) 32 U/L Kaz [id number] 00:00:00* Test Item Value Reference Range Interpretation Comme nts TSH, THIRD GENERATION (test code = 2821) 0.893 UIU/ML Kaz LopezHEMOGLOBIN [id number] 00:00:00* Test Item Value Reference Range Interpretation Comme nts HEMOGLOBIN A1c (test code = 03689) 5.7 % Kaz Colon AustinHEMOGLOBIN [id number] 00:00:00* Test Item Value Reference Range Interpretation Comme nts HEMOGLOBIN A1c (test code = 88535) 5.7 % HEMOGLOBIN [id number] 00:00:00* Test Item Value Reference Range Interpretation Comme nts HEMOGLOBIN A1c (test code = 72683) 5.7 % LIPID [id number] 00:00:00* Test Item Value Reference Range Interpretation Comme nts CHOLESTEROL (test code = 2210) 195 MG/DL TRIGLYCERIDES (test code = 2232) 154 MG/DL HDL CHOLESTEROL (test code = 2220) 59 MG/DL CALC LDL CHOL (test code = 2237) 109 MG/DL RISK RATIO LDL/HDL (test cod e = 2238) 1.85 RATIO Kaz F AustinLIPID [id number] 00:00:00* Test Item Value Reference Range Interpretation Comme nts CHOLESTEROL (test code = 2210) 195 MG/DL TRIGLYCERIDES (test code = 2232) 154 MG/DL HDL CHOLESTEROL (test code = 2220) 59 MG/DL CALC LDL CHOL (test code = 2237) 109 MG/DL RISK RATIO LDL/HDL (test cod e = 2238) 1.85 RATIO COMPREHENSIVE METABOLIC [id number] 00:00:00* Test Item Value Reference Range Interpretation Comme nts GLUCOSE (test code = 2217) 144 MG/DL BUN (test code = 2208) 23 MG/DL CREATININE (test code = 2214) 1.09 MG/DL eGFR AMER. (test cod e = 77983) 80 ML/MIN/1.73 eGFR NON- AMER. (test code = 89433) 69 ML/MIN/1.73 CALC BUN/CREAT (test code = 2235) 21 RATIO SODIUM (test code = 2231) 140 MEQ/L POTASSIUM (test code = 2228) 3.8 MEQ/L CHLORIDE (test code = 2215) 99 MEQ/L CARBON DIOXIDE (test code = 2206) 27 MEQ/L CALCIUM (test code = 2209) 10.4 MG/DL PROTEIN, TOTAL (test code = 2229) 7.4 G/DL ALBUMIN (test code = 2201) 4.6 G/DL CALC GLOBULIN (test code = 2240) 2.8 G/DL CALC A/G RATIO (test code = 2234) 1.6 RATIO BILIRUBIN, TOTAL (test code = 2207) 0.7 MG/DL ALKALINE PHOSPHATASE (test code = 2204) 56 U/L AST (test code = 2218) 14 U/L ALT (test code = 2219) 32 U/L [id number] 00:00:00* Test Item Value Reference Range Interpretation Comme nts TSH, THIRD GENERATION (test code = 2821) 0.893 UIU/ML [id number] 00:00:00* Test Item Value Reference Range Interpretation Comme nts TSH, THIRD GENERATION (test code = 2821) 0.893 UIU/ML COMPREHENSIVE METABOLIC [id number] 00:00:00* Test Item Value Reference Range Interpretation Comme nts GLUCOSE (test code = 2217) 144 MG/DL BUN (test code = 8) 23 MG/DL CREATININE (test code = 2214) 1.09 MG/DL eGFR AMER. (test cod e = 83557) 80 ML/MIN/1.73 eGFR NON- AMER. (test code = 29116) 69 ML/MIN/1.73 CALC BUN/CREAT (test code = 2235) 21 RATIO SODIUM (test code = 2231) 140 MEQ/L POTASSIUM (test code = 2228) 3.8 MEQ/L CHLORIDE (test code = 2215) 99 MEQ/L CARBON DIOXIDE (test code = 2206) 27 MEQ/L CALCIUM (test code = 2209) 10.4 MG/DL PROTEIN, TOTAL (test code = 2228) 7.4 G/DL ALBUMIN (test code = 220) 4.6 G/DL CALC GLOBULIN (test code = 2240) 2.8 G/DL CALC A/G RATIO (test code = 2234) 1.6 RATIO BILIRUBIN, TOTAL (test code = 2206) 0.7 MG/DL ALKALINE PHOSPHATASE (test code = 2203) 56 U/L AST (test code = 2218) 14 U/L ALT (test code = 2219) 32 U/L Kaz [id number] 00:00:00* Test Item Value Reference Range Interpretation Comme [facility] TSH, THIRD GENERATION (test code = 2821) 0.893 UIU/ML Kaz LopezHEMOGLOBIN [id number] 00:00:00* Test Item Value Reference Range Interpretation Comme [facility] HEMOGLOBIN A1c (test code = 10550) 5.7 % Kaz Colon GerlachCOMPREHENSIVE METABOLIC [id number] 00:00:00* Test Item Value Reference Range Interpretation Comme nts GLUCOSE (test code = 2216) 102 MG/DL BUN (test code = 8) 22 MG/DL CREATININE (test code = 2214) 1.19 MG/DL eGFR AMER. (test cod e = 87812) 72 ML/MIN/1.73 eGFR NON- AMER. (test code = 22089) 62 ML/MIN/1.73 CALC BUN/CREAT (test code = 2235) 18 RATIO SODIUM (test code = 2231) 139 MEQ/L POTASSIUM (test code = 2228) 4.1 MEQ/L CHLORIDE (test code = 2215) 100 MEQ/L CARBON DIOXIDE (test code = 2206) 25 MEQ/L CALCIUM (test code = 2209) 9.5 MG/DL PROTEIN, TOTAL (test code = 2229) 6.9 G/DL ALBUMIN (test code = 2201) 4.4 G/DL CALC GLOBULIN (test code = 2240) 2.5 G/DL CALC A/G RATIO (test code = 2234) 1.8 RATIO BILIRUBIN, TOTAL (test code = 2207) 0.8 MG/DL ALKALINE PHOSPHATASE (test code = 2204) 58 U/L AST (test code = 2218) 13 U/L ALT (test code = 2219) 18 U/L Kaz Colon JohnCBC W/AUTO [id number] 00:00:00* Test Item Value Reference Range Interpretation Comme nts WBC (test code = 1001) 10.2 K/UL RBC (test code = 1002) 4.69 M/UL HEMOGLOBIN (test code = 1003) 14.2 G/DL HEMATOCRIT (test code = 1004) 41.1 % MCV (test code = 1005) 87.6 fL MCH (test code = 1006) 30.3 PG MCHC (test code = 1007) 34.5 G/DL RDW (test code = 1038) 13.8 % NEUTROPHILS (test code = 1008) 75.3 % LYMPHOCYTES (test code = 1010) 14.2 % MONOCYTES (test code = 1011) 8.8 % EOSINOPHILS (test code = 1012) 1.2 % BASOPHILS (test code = 1013) 0.5 % PLATELET COUNT (test code = 1015) 228 K/UL Kaz Colon [id number] 00:00:00* Test Item Value Reference Range Interpretation Comme nts AMYLASE (test code = 2205) 58 U/L Kaz Colon [id number] 00:00:00* Test Item Value Reference Range Interpretation Comme nts AMYLASE (test code = 2205) 58 U/L [id number] 00:00:00* Test Item Value Reference Range Interpretation Comme nts LIPASE (test code = 2057) 19 U/L [id number] 00:00:00* Test Item Value Reference Range Interpretation Comme nts LIPASE (test code = 2057) 19 U/L [id number] 00:00:00* Test Item Value Reference Range Interpretation Comme nts LIPASE (test code = 2057) 19 U/L Kaz LopezCOMPREHENSIVE METABOLIC [id number] 00:00:00* Test Item Value Reference Range Interpretation Comme nts GLUCOSE (test code = 2217) 102 MG/DL BUN (test code = 2208) 22 MG/DL CREATININE (test code = 2214) 1.19 MG/DL eGFR AMER. (test cod e = 86202) 72 ML/MIN/1.73 eGFR NON- AMER. (test code = 03774) 62 ML/MIN/1.73 CALC BUN/CREAT (test code = 2235) 18 RATIO SODIUM (test code = 2231) 139 MEQ/L POTASSIUM (test code = 2228) 4.1 MEQ/L CHLORIDE (test code = 2215) 100 MEQ/L CARBON DIOXIDE (test code = 2206) 25 MEQ/L CALCIUM (test code = 2209) 9.5 MG/DL PROTEIN, TOTAL (test code = 2229) 6.9 G/DL ALBUMIN (test code = 2201) 4.4 G/DL CALC GLOBULIN (test code = 2240) 2.5 G/DL CALC A/G RATIO (test code = 2234) 1.8 RATIO BILIRUBIN, TOTAL (test code = 2207) 0.8 MG/DL ALKALINE PHOSPHATASE (test code = 2204) 58 U/L AST (test code = 2218) 13 U/L ALT (test code = 2219) 18 U/L CBC W/AUTO [id number] 00:00:00* Test Item Value Reference Range Interpretation Comme nts WBC (test code = 1001) 10.2 K/UL RBC (test code = 1002) 4.69 M/UL HEMOGLOBIN (test code = 1003) 14.2 G/DL HEMATOCRIT (test code = 1004) 41.1 % MCV (test code = 1005) 87.6 fL MCH (test code = 1006) 30.3 PG MCHC (test code = 1007) 34.5 G/DL RDW (test code = 1038) 13.8 % NEUTROPHILS (test code = 1008) 75.3 % LYMPHOCYTES (test code = 1010) 14.2 % MONOCYTES (test code = 1011) 8.8 % EOSINOPHILS (test code = 1012) 1.2 % BASOPHILS (test code = 1013) 0.5 % PLATELET COUNT (test code = 1015) 228 K/UL CBC W/AUTO [id number] 00:00:00* Test Item Value Reference Range Interpretation Comme nts WBC (test code = 1001) 10.2 K/UL RBC (test code = 1002) 4.69 M/UL HEMOGLOBIN (test code = 1003) 14.2 G/DL HEMATOCRIT (test code = 1004) 41.1 % MCV (test code = 1005) 87.6 fL MCH (test code = 1006) 30.3 PG MCHC (test code = 1007) 34.5 G/DL RDW (test code = 1038) 13.8 % NEUTROPHILS (test code = 1008) 75.3 % LYMPHOCYTES (test code = 1010) 14.2 % MONOCYTES (test code = 1011) 8.8 % EOSINOPHILS (test code = 1012) 1.2 % BASOPHILS (test code = 1013) 0.5 % PLATELET COUNT (test code = 1015) 228 K/UL COMPREHENSIVE METABOLIC [id number] 00:00:00* Test Item Value Reference Range Interpretation Comme nts GLUCOSE (test code = 2217) 102 MG/DL BUN (test code = 2208) 22 MG/DL CREATININE (test code = 2214) 1.19 MG/DL eGFR AMER. (test cod e = 01379) 72 ML/MIN/1.73 eGFR NON- AMER. (test code = 43689) 62 ML/MIN/1.73 CALC BUN/CREAT (test code = 2235) 18 RATIO SODIUM (test code = 2231) 139 MEQ/L POTASSIUM (test code = 2228) 4.1 MEQ/L CHLORIDE (test code = 2215) 100 MEQ/L CARBON DIOXIDE (test code = 2206) 25 MEQ/L CALCIUM (test code = 2209) 9.5 MG/DL PROTEIN, TOTAL (test code = 2229) 6.9 G/DL ALBUMIN (test code = 2201) 4.4 G/DL CALC GLOBULIN (test code = 2240) 2.5 G/DL CALC A/G RATIO (test code = 2234) 1.8 RATIO BILIRUBIN, TOTAL (test code = 2207) 0.8 MG/DL ALKALINE PHOSPHATASE (test code = 2204) 58 U/L AST (test code = 2218) 13 U/L ALT (test code = 2219) 18 U/L Kaz LopezCBC W/AUTO [id number] 00:00:00* Test Item Value Reference Range Interpretation Comme nts WBC (test code = 1001) 10.2 K/UL RBC (test code = 1002) 4.69 M/UL HEMOGLOBIN (test code = 1003) 14.2 G/DL HEMATOCRIT (test code = 1004) 41.1 % MCV (test code = 1005) 87.6 fL MCH (test code = 1006) 30.3 PG MCHC (test code = 1007) 34.5 G/DL RDW (test code = 1038) 13.8 % NEUTROPHILS (test code = 1008) 75.3 % LYMPHOCYTES (test code = 1010) 14.2 % MONOCYTES (test code = 1011) 8.8 % EOSINOPHILS (test code = 1012) 1.2 % BASOPHILS (test code = 1013) 0.5 % PLATELET COUNT (test code = 1015) 228 K/UL Kaz Colon [id number] 00:00:00* Test Item Value Reference Range Interpretation Comme nts AMYLASE (test code = 2205) 58 U/L Kaz Colon [id number] 00:00:00* Test Item Value Reference Range Interpretation Comme nts LIPASE (test code = 2058) 19 U/L Kaz LopezCOMPREHENSIVE METABOLIC [id number] 00:00:00* Test Item Value Reference Range Interpretation Comme nts GLUCOSE (test code = 2217) 108 MG/DL BUN (test code = 2208) 24 MG/DL CREATININE (test code = 2214) 1.19 MG/DL eGFR AMER. (test cod e = 68136) 73 ML/MIN/1.73 eGFR NON- AMER. (test code = 14182) 63 ML/MIN/1.73 CALC BUN/CREAT (test code = 2235) 20 RATIO SODIUM (test code = 2231) 142 MEQ/L POTASSIUM (test code = 2228) 3.8 MEQ/L CHLORIDE (test code = 2215) 99 MEQ/L CARBON DIOXIDE (test code = 2206) 26 MEQ/L CALCIUM (test code = 2209) 9.9 MG/DL PROTEIN, TOTAL (test code = 2229) 7.1 G/DL ALBUMIN (test code = 2201) 4.7 G/DL CALC GLOBULIN (test code = 2240) 2.4 G/DL CALC A/G RATIO (test code = 2234) 2.0 RATIO BILIRUBIN, TOTAL (test code = 2207) 0.8 MG/DL ALKALINE PHOSPHATASE (test code = 2204) 68 U/L AST (test code = 2218) 23 U/L ALT (test code = 2219) 34 U/L Kaz [id number] 00:00:00* Test Item Value Reference Range Interpretation Comme nts AMYLASE (test code = 2204) 73 U/L Kaz Colon [id number] 00:00:00* Test Item Value Reference Range Interpretation Comme nts TSH, THIRD GENERATION (test code = 2821) 1.450 UIU/ML Kaz Colon [id number] 00:00:00* Test Item Value Reference Range Interpretation Comme nts TSH, THIRD GENERATION (test code = 2821) 1.450 UIU/ML [id number] 00:00:00* Test Item Value Reference Range Interpretation Comme nts TSH, THIRD GENERATION (test code = 2821) 1.450 UIU/ML COMPREHENSIVE METABOLIC [id number] 00:00:00* Test Item Value Reference Range Interpretation Comme nts GLUCOSE (test code = 7) 108 MG/DL BUN (test code = 8) 24 MG/DL CREATININE (test code = 2214) 1.19 MG/DL eGFR AMER. (test cod e = 40603) 73 ML/MIN/1.73 eGFR NON- AMER. (test code = 25856) 63 ML/MIN/1.73 CALC BUN/CREAT (test code = 2235) 20 RATIO SODIUM (test code = 2231) 142 MEQ/L POTASSIUM (test code = 2228) 3.8 MEQ/L CHLORIDE (test code = 2215) 99 MEQ/L CARBON DIOXIDE (test code = 6) 26 MEQ/L CALCIUM (test code = 2209) 9.9 MG/DL PROTEIN, TOTAL (test code = 2229) 7.1 G/DL ALBUMIN (test code = 2201) 4.7 G/DL CALC GLOBULIN (test code = 2240) 2.4 G/DL CALC A/G RATIO (test code = 2234) 2.0 RATIO BILIRUBIN, TOTAL (test code = 2207) 0.8 MG/DL ALKALINE PHOSPHATASE (test code = 2204) 68 U/L AST (test code = 2218) 23 U/L ALT (test code = 2219) 34 U/L [id number] 00:00:00* Test Item Value Reference Range Interpretation Comme nts AMYLASE (test code = 2205) 73 U/L COMPREHENSIVE METABOLIC [id number] 00:00:00* Test Item Value Reference Range Interpretation Comme nts GLUCOSE (test code = 2217) 108 MG/DL BUN (test code = 2208) 24 MG/DL CREATININE (test code = 2214) 1.19 MG/DL eGFR AMER. (test cod e = 01732) 73 ML/MIN/1.73 eGFR NON- AMER. (test code = 65837) 63 ML/MIN/1.73 CALC BUN/CREAT (test code = 2235) 20 RATIO SODIUM (test code = 2231) 142 MEQ/L POTASSIUM (test code = 2228) 3.8 MEQ/L CHLORIDE (test code = 2215) 99 MEQ/L CARBON DIOXIDE (test code = 2206) 26 MEQ/L CALCIUM (test code = 2209) 9.9 MG/DL PROTEIN, TOTAL (test code = 2229) 7.1 G/DL ALBUMIN (test code = 2201) 4.7 G/DL CALC GLOBULIN (test code = 2240) 2.4 G/DL CALC A/G RATIO (test code = 2234) 2.0 RATIO BILIRUBIN, TOTAL (test code = 2207) 0.8 MG/DL ALKALINE PHOSPHATASE (test code = 2204) 68 U/L AST (test code = 2218) 23 U/L ALT (test code = 2219) 34 U/L Kaz Colon [id number] 00:00:00* Test Item Value Reference Range Interpretation Comme nts AMYLASE (test code = 2205) 73 U/L Kaz Colon [id number] 00:00:00* Test Item Value Reference Range Interpretation Comme nts TSH, THIRD GENERATION (test code = 2821) 1.450 UIU/ML Kaz LopezCBC W/AUTO [id number] 00:00:00* Test Item Value Reference Range Interpretation Comme nts WBC (test code = 1001) 5.8 K/UL RBC (test code = 1002) 4.49 M/UL HEMOGLOBIN (test code = 1003) 14.2 G/DL HEMATOCRIT (test code = 1004) 39.5 % MCV (test code = 1005) 88.0 fL MCH (test code = 1006) 31.6 PG MCHC (test code = 1007) 35.9 G/DL RDW (test code = 1038) 13.9 % NEUTROPHILS (test code = 1008) 64.1 % LYMPHOCYTES (test code = 1010) 23.3 % MONOCYTES (test code = 1011) 9.4 % EOSINOPHILS (test code = 1012) 1.5 % BASOPHILS (test code = 1013) 1.7 % PLATELET COUNT (test code = 1015) 189 K/UL Kaz LopezCBC W/AUTO [id number] 00:00:00* Test Item Value Reference Range Interpretation Comme nts WBC (test code = 1001) 5.8 K/UL RBC (test code = 1002) 4.49 M/UL HEMOGLOBIN (test code = 1003) 14.2 G/DL HEMATOCRIT (test code = 1004) 39.5 % MCV (test code = 1005) 88.0 fL MCH (test code = 1006) 31.6 PG MCHC (test code = 1007) 35.9 G/DL RDW (test code = 1038) 13.9 % NEUTROPHILS (test code = 1008) 64.1 % LYMPHOCYTES (test code = 1010) 23.3 % MONOCYTES (test code = 1011) 9.4 % EOSINOPHILS (test code = 1012) 1.5 % BASOPHILS (test code = 1013) 1.7 % PLATELET COUNT (test code = 1015) 189 K/UL CBC W/AUTO [id number] 00:00:00* Test Item Value Reference Range Interpretation Comme nts WBC (test code = 1001) 5.8 K/UL RBC (test code = 1002) 4.49 M/UL HEMOGLOBIN (test code = 1003) 14.2 G/DL HEMATOCRIT (test code = 1004) 39.5 % MCV (test code = 1005) 88.0 fL MCH (test code = 1006) 31.6 PG MCHC (test code = 1007) 35.9 G/DL RDW (test code = 1038) 13.9 % NEUTROPHILS (test code = 1008) 64.1 % LYMPHOCYTES (test code = 1010) 23.3 % MONOCYTES (test code = 1011) 9.4 % EOSINOPHILS (test code = 1012) 1.5 % BASOPHILS (test code = 1013) 1.7 % PLATELET COUNT (test code = 1015) 189 K/UL CBC W/AUTO [id number] 00:00:00* Test Item Value Reference Range Interpretation Comme nts WBC (test code = 1001) 5.8 K/UL RBC (test code = 1002) 4.49 M/UL HEMOGLOBIN (test code = 1003) 14.2 G/DL HEMATOCRIT (test code = 1004) 39.5 % MCV (test code = 1005) 88.0 fL MCH (test code = 1006) 31.6 PG MCHC (test code = 1007) 35.9 G/DL RDW (test code = 1038) 13.9 % NEUTROPHILS (test code = 1008) 64.1 % LYMPHOCYTES (test code = 1010) 23.3 % MONOCYTES (test code = 1011) 9.4 % EOSINOPHILS (test code = 1012) 1.5 % BASOPHILS (test code = 1013) 1.7 % PLATELET COUNT (test code = 1015) 189 K/UL Kaz Colon AustinCOMPREHENSIVE METABOLIC [id number] 00:00:00* Test Item Value Reference Range Interpretation Comme nts GLUCOSE (test code = 2217) 105 MG/DL BUN (test code = 2208) 18 MG/DL CREATININE (test code = 2214) 1.31 MG/DL eGFR AMER. (test cod e = 65659) 65 ML/MIN/1.73 eGFR NON- AMER. (test code = 73600) 56 ML/MIN/1.73 CALC BUN/CREAT (test code = 2235) 14 RATIO SODIUM (test code = 2231) 139 MEQ/L POTASSIUM (test code = 2228) 4.2 MEQ/L CHLORIDE (test code = 2215) 98 MEQ/L CARBON DIOXIDE (test code = 2206) 24 MEQ/L CALCIUM (test code = 2209) 9.7 MG/DL PROTEIN, TOTAL (test code = 2229) 7.1 G/DL ALBUMIN (test code = 2201) 4.7 G/DL CALC GLOBULIN (test code = 2240) 2.4 G/DL CALC A/G RATIO (test code = 2234) 2.0 RATIO BILIRUBIN, TOTAL (test code = 2207) 0.6 MG/DL ALKALINE PHOSPHATASE (test code = 2204) 67 U/L AST (test code = 2218) 20 U/L ALT (test code = 2219) 22 U/L Kaz Colon GerlachLIPID [id number] 00:00:00* Test Item Value Reference Range Interpretation Comme nts CHOLESTEROL (test code = 2210) 137 MG/DL TRIGLYCERIDES (test code = 2232) 205 MG/DL HDL CHOLESTEROL (test code = 0) 43 MG/DL CALC LDL CHOL (test code = 2236) 67 MG/DL RISK RATIO LDL/HDL (test cod e = 2238) 1.56 RATIO Kaz Colon [id number] 00:00:00* Test Item Value Reference Range Interpretation Comme nts TSH, THIRD GENERATION (test code = 2821) 5.920 UIU/ML Kaz Colon [id number] 00:00:00* Test Item Value Reference Range Interpretation Comme nts TSH, THIRD GENERATION (test code = 2821) 5.920 UIU/ML [id number] 00:00:00* Test Item Value Reference Range Interpretation Comme nts TSH, THIRD GENERATION (test code = 2821) 5.920 UIU/ML COMPREHENSIVE METABOLIC [id number] 00:00:00* Test Item Value Reference Range Interpretation Comme nts GLUCOSE (test code = 7) 105 MG/DL BUN (test code = 8) 18 MG/DL CREATININE (test code = 2214) 1.31 MG/DL eGFR AMER. (test cod e = 77795) 65 ML/MIN/1.73 eGFR NON- AMER. (test code = 91490) 56 ML/MIN/1.73 CALC BUN/CREAT (test code = 2235) 14 RATIO SODIUM (test code = 2231) 139 MEQ/L POTASSIUM (test code = 2228) 4.2 MEQ/L CHLORIDE (test code = 2215) 98 MEQ/L CARBON DIOXIDE (test code = 2206) 24 MEQ/L CALCIUM (test code = 2209) 9.7 MG/DL PROTEIN, TOTAL (test code = 2229) 7.1 G/DL ALBUMIN (test code = 2201) 4.7 G/DL CALC GLOBULIN (test code = 2240) 2.4 G/DL CALC A/G RATIO (test code = 2234) 2.0 RATIO BILIRUBIN, TOTAL (test code = 2207) 0.6 MG/DL ALKALINE PHOSPHATASE (test code = 2204) 67 U/L AST (test code = 2218) 20 U/L ALT (test code = 2219) 22 U/L COMPREHENSIVE METABOLIC [id number] 00:00:00* Test Item Value Reference Range Interpretation Comme nts GLUCOSE (test code = 2217) 105 MG/DL BUN (test code = 2208) 18 MG/DL CREATININE (test code = 2214) 1.31 MG/DL eGFR AMER. (test cod e = 22411) 65 ML/MIN/1.73 eGFR NON- AMER. (test code = 29613) 56 ML/MIN/1.73 CALC BUN/CREAT (test code = 2235) 14 RATIO SODIUM (test code = 2231) 139 MEQ/L POTASSIUM (test code = 2228) 4.2 MEQ/L CHLORIDE (test code = 2215) 98 MEQ/L CARBON DIOXIDE (test code = 2206) 24 MEQ/L CALCIUM (test code = 2209) 9.7 MG/DL PROTEIN, TOTAL (test code = 2229) 7.1 G/DL ALBUMIN (test code = 2201) 4.7 G/DL CALC GLOBULIN (test code = 2240) 2.4 G/DL CALC A/G RATIO (test code = 2234) 2.0 RATIO BILIRUBIN, TOTAL (test code = 2207) 0.6 MG/DL ALKALINE PHOSPHATASE (test code = 2204) 67 U/L AST (test code = 2218) 20 U/L ALT (test code = 2219) 22 U/L Kaz F AustinLIPID [id number] 00:00:00* Test Item Value Reference Range Interpretation Comme nts CHOLESTEROL (test code = 2210) 137 MG/DL TRIGLYCERIDES (test code = 2232) 205 MG/DL HDL CHOLESTEROL (test code = 2220) 43 MG/DL CALC LDL CHOL (test code = 2237) 67 MG/DL RISK RATIO LDL/HDL (test cod e = 2238) 1.56 RATIO LIPID [id number] 00:00:00* Test Item Value Reference Range Interpretation Comme nts CHOLESTEROL (test code = 2210) 137 MG/DL TRIGLYCERIDES (test code = 2232) 205 MG/DL HDL CHOLESTEROL (test code = 2220) 43 MG/DL CALC LDL CHOL (test code = 2237) 67 MG/DL RISK RATIO LDL/HDL (test cod e = 2238) 1.56 RATIO Kaz Colon [id number] 00:00:00* Test Item Value Reference Range Interpretation Comme nts TSH, THIRD GENERATION (test code = 2821) 5.920 UIU/ML Kaz Colon AustinSEDIMENTATION [id number] 00:00:00* Test Item Value Reference Range Interpretation Comme nts SEDIMENTATION RATE (test cod e = 1017) 2 MM/HOUR Kaz Colon AustinSEDIMENTATION [id number] 00:00:00* Test Item Value Reference Range Interpretation Comme nts SEDIMENTATION RATE (test cod e = 1017) 2 MM/HOUR SEDIMENTATION [id number] 00:00:00* Test Item Value Reference Range Interpretation Comme nts SEDIMENTATION RATE (test cod e = 1017) 2 MM/HOUR Kaz Colon [id number] 00:00:00* Test Item Value Reference Range Interpretation Comme nts TSH, THIRD GENERATION (test code = 2821) 5.640 UIU/ML Kaz Colon [id number] 00:00:00* Test Item Value Reference Range Interpretation Comme nts TSH, THIRD GENERATION (test code = 2821) 5.640 UIU/ML [id number] 00:00:00* Test Item Value Reference Range Interpretation Comme nts TSH, THIRD GENERATION (test code = 2821) 5.640 UIU/ML [id number] 00:00:00* Test Item Value Reference Range Interpretation Comme nts TSH, THIRD GENERATION (test code = 2821) 5.640 UIU/ML Kaz F [id number] 00:00:00* Test Item Value Reference Range Interpretation Comme nts TSH, THIRD GENERATION (test code = 2821) 7.130 UIU/ML Kaz [id number] 00:00:00* Test Item Value Reference Range Interpretation Comme nts TSH, THIRD GENERATION (test code = 2821) 7.130 UIU/ML [id number] 00:00:00* Test Item Value Reference Range Interpretation Comme nts TSH, THIRD GENERATION (test code = 2821) 7.130 UIU/ML [id number] 00:00:00* Test Item Value Reference Range Interpretation Comme nts TSH, THIRD GENERATION (test code = 2821) 7.130 UIU/ML Kaz [id number] 00:00:00* Test Item Value Reference Range Interpretation Comme nts RPR RESULT (test code = 3501) NON-REACTIVE RPR TITER (test code = 3500) NOT INDIC. TITER Kaz LopezACUTE HEPATITIS [id number] 00:00:00* Test Item Value Reference Range Interpretation Comme nts HEPATITIS A IgM (test code = 80068) NON-REACTIVE HEPATITIS B CORE IgM (test c ode = 4644) NON-REACTIVE HEPATITIS B SURF AG (test co de = 2739) NON-REACTIVE HEPATITIS C ANTIBODY (test c ode = 4675) NON-REACTIVE HCV INDEX (test code = 38500) 0.13 INTERPRETATION HEPATITIS A: (test code = 2552) (NOTE) INTERPRETATION HEPATITIS B: (test code = 82153) (NOTE) INTERPRETATION HEPATITIS C: (test code = 20701) (NOTE) Kaz [id number] 00:00:00* Test Item Value Reference Range Interpretation Comme nts RPR RESULT (test code = 3501) NON-REACTIVE RPR TITER (test code = 3500) NOT INDIC. TITER [id number] 00:00:00* Test Item Value Reference Range Interpretation Comme nts RPR RESULT (test code = 3501) NON-REACTIVE RPR TITER (test code = 3500) NOT INDIC. TITER ACUTE HEPATITIS [id number] 00:00:00* Test Item Value Reference Range Interpretation Comme nts HEPATITIS A IgM (test code = 73541) NON-REACTIVE HEPATITIS B CORE IgM (test c ode = 4644) NON-REACTIVE HEPATITIS B SURF AG (test co de = 2739) NON-REACTIVE HEPATITIS C ANTIBODY (test c ode = 4675) NON-REACTIVE HCV INDEX (test code = 39514) 0.13 INTERPRETATION HEPATITIS A: (test code = 2552) (NOTE) INTERPRETATION HEPATITIS B: (test code = 49397) (NOTE) INTERPRETATION HEPATITIS C: (test code = 22234) (NOTE) [id number] 00:00:00* Test Item Value Reference Range Interpretation Comme nts RPR RESULT (test code = 3501) NON-REACTIVE RPR TITER (test code = 3500) NOT INDIC. TITER Kaz LopezACUTE HEPATITIS [id number] 00:00:00* Test Item Value Reference Range Interpretation Comme nts HEPATITIS A IgM (test code = 21945) NON-REACTIVE HEPATITIS B CORE IgM (test c ode = 4644) NON-REACTIVE HEPATITIS B SURF AG (test co de = 2739) NON-REACTIVE HEPATITIS C ANTIBODY (test c ode = 4675) NON-REACTIVE HCV INDEX (test code = 09898) 0.13 INTERPRETATION HEPATITIS A: (test code = 2552) (NOTE) INTERPRETATION HEPATITIS B: (test code = 38467) (NOTE) INTERPRETATION HEPATITIS C: (test code = 69533) (NOTE) Kaz LopezLIPID [id number] 00:00:00* Test Item Value Reference Range Interpretation Comme nts CHOLESTEROL (test code = 2210) 133 MG/DL TRIGLYCERIDES (test code = 2232) 68 MG/DL HDL CHOLESTEROL (test code = 2220) 51 MG/DL CALC LDL CHOL (test code = 2237) 68 MG/DL RISK RATIO LDL/HDL (test cod e = 2238) 1.34 RATIO Kaz LopezCOMPREHENSIVE METABOLIC [id number] 00:00:00* Test Item Value Reference Range Interpretation Comme nts GLUCOSE (test code = 2217) 108 MG/DL BUN (test code = 2208) 16 MG/DL CREATININE (test code = 2214) 1.14 MG/DL eGFR AMER. (test cod e = 14871) 77 ML/MIN/1.73 eGFR NON- AMER. (test code = 20038) 67 ML/MIN/1.73 CALC BUN/CREAT (test code = 2235) 14 RATIO SODIUM (test code = 2231) 140 MEQ/L POTASSIUM (test code = 2228) 3.6 MEQ/L CHLORIDE (test code = 2215) 98 MEQ/L CARBON DIOXIDE (test code = 2206) 24 MEQ/L CALCIUM (test code = 2209) 9.9 MG/DL PROTEIN, TOTAL (test code = 2229) 7.3 G/DL ALBUMIN (test code = 2201) 4.8 G/DL CALC GLOBULIN (test code = 2240) 2.5 G/DL CALC A/G RATIO (test code = 2234) 1.9 RATIO BILIRUBIN, TOTAL (test code = 2207) 1.0 MG/DL ALKALINE PHOSPHATASE (test code = 2204) 76 U/L AST (test code = 2218) 21 U/L ALT (test code = 2219) 19 U/L Kaz F AustinLIPID [id number] 00:00:00* Test Item Value Reference Range Interpretation Comme nts CHOLESTEROL (test code = 2210) 133 MG/DL TRIGLYCERIDES (test code = 2232) 68 MG/DL HDL CHOLESTEROL (test code = 2220) 51 MG/DL CALC LDL CHOL (test code = 2237) 68 MG/DL RISK RATIO LDL/HDL (test cod e = 2238) 1.34 RATIO COMPREHENSIVE METABOLIC [id number] 00:00:00* Test Item Value Reference Range Interpretation Comme nts GLUCOSE (test code = 2217) 108 MG/DL BUN (test code = 2208) 16 MG/DL CREATININE (test code = 2214) 1.14 MG/DL eGFR AMER. (test cod e = 93981) 77 ML/MIN/1.73 eGFR NON- AMER. (test code = 24828) 67 ML/MIN/1.73 CALC BUN/CREAT (test code = 2235) 14 RATIO SODIUM (test code = 2231) 140 MEQ/L POTASSIUM (test code = 2228) 3.6 MEQ/L CHLORIDE (test code = 2215) 98 MEQ/L CARBON DIOXIDE (test code = 2206) 24 MEQ/L CALCIUM (test code = 2209) 9.9 MG/DL PROTEIN, TOTAL (test code = 2229) 7.3 G/DL ALBUMIN (test code = 2201) 4.8 G/DL CALC GLOBULIN (test code = 2240) 2.5 G/DL CALC A/G RATIO (test code = 2234) 1.9 RATIO BILIRUBIN, TOTAL (test code = 2207) 1.0 MG/DL ALKALINE PHOSPHATASE (test code = 2204) 76 U/L AST (test code = 2218) 21 U/L ALT (test code = 2219) 19 U/L LIPID [id number] 00:00:00* Test Item Value Reference Range Interpretation Comme nts CHOLESTEROL (test code = 2210) 133 MG/DL TRIGLYCERIDES (test code = 2232) 68 MG/DL HDL CHOLESTEROL (test code = 2220) 51 MG/DL CALC LDL CHOL (test code = 2237) 68 MG/DL RISK RATIO LDL/HDL (test cod e = 2238) 1.34 RATIO Kaz LopezCOMPREHENSIVE METABOLIC [id number] 00:00:00* Test Item Value Reference Range Interpretation Comme nts GLUCOSE (test code = 2217) 108 MG/DL BUN (test code = 2208) 16 MG/DL CREATININE (test code = 2214) 1.14 MG/DL eGFR AMER. (test cod e = 69474) 77 ML/MIN/1.73 eGFR NON- AMER. (test code = 72975) 67 ML/MIN/1.73 CALC BUN/CREAT (test code = 2235) 14 RATIO SODIUM (test code = 2231) 140 MEQ/L POTASSIUM (test code = 2228) 3.6 MEQ/L CHLORIDE (test code = 2215) 98 MEQ/L CARBON DIOXIDE (test code = 2206) 24 MEQ/L CALCIUM (test code = 2209) 9.9 MG/DL PROTEIN, TOTAL (test code = 2229) 7.3 G/DL ALBUMIN (test code = 2201) 4.8 G/DL CALC GLOBULIN (test code = 2240) 2.5 G/DL CALC A/G RATIO (test code = 2234) 1.9 RATIO BILIRUBIN, TOTAL (test code = 2207) 1.0 MG/DL ALKALINE PHOSPHATASE (test code = 2204) 76 U/L AST (test code = 2218) 21 U/L ALT (test code = 2219) 19 U/L Kaz F AustinHEMOGLOBIN [id number] 00:00:00* Test Item Value Reference Range Interpretation Comme nts HEMOGLOBIN A1c (test code = 99212) 5.3 % Kaz LopezCBC W/AUTO [id number] 00:00:00* Test Item Value Reference Range Interpretation Comme nts WBC (test code = 1001) 6.7 K/UL RBC (test code = 1002) 4.21 M/UL HEMOGLOBIN (test code = 1003) 13.1 G/DL HEMATOCRIT (test code = 1004) 38.1 % MCV (test code = 1005) 90.5 fL MCH (test code = 1006) 31.1 PG MCHC (test code = 1007) 34.4 G/DL RDW (test code = 1038) 14.4 % NEUTROPHILS (test code = 1008) 70.5 % LYMPHOCYTES (test code = 1010) 15.9 % MONOCYTES (test code = 1011) 10.7 % EOSINOPHILS (test code = 1012) 1.4 % BASOPHILS (test code = 1013) 1.5 % PLATELET COUNT (test code = 1015) 251 K/UL Kaz LopezC W/AUTO [id number] 00:00:00* Test Item Value Reference Range Interpretation Comme nts WBC (test code = 1001) 6.7 K/UL RBC (test code = 1002) 4.21 M/UL HEMOGLOBIN (test code = 1003) 13.1 G/DL HEMATOCRIT (test code = 1004) 38.1 % MCV (test code = 1005) 90.5 fL MCH (test code = 1006) 31.1 PG MCHC (test code = 1007) 34.4 G/DL RDW (test code = 1038) 14.4 % NEUTROPHILS (test code = 1008) 70.5 % LYMPHOCYTES (test code = 1010) 15.9 % MONOCYTES (test code = 1011) 10.7 % EOSINOPHILS (test code = 1012) 1.4 % BASOPHILS (test code = 1013) 1.5 % PLATELET COUNT (test code = 1015) 251 K/UL CBC W/AUTO [id number] 00:00:00* Test Item Value Reference Range Interpretation Comme nts WBC (test code = 1001) 6.7 K/UL RBC (test code = 1002) 4.21 M/UL HEMOGLOBIN (test code = 1003) 13.1 G/DL HEMATOCRIT (test code = 1004) 38.1 % MCV (test code = 1005) 90.5 fL MCH (test code = 1006) 31.1 PG MCHC (test code = 1007) 34.4 G/DL RDW (test code = 1038) 14.4 % NEUTROPHILS (test code = 1008) 70.5 % LYMPHOCYTES (test code = 1010) 15.9 % MONOCYTES (test code = 1011) 10.7 % EOSINOPHILS (test code = 1012) 1.4 % BASOPHILS (test code = 1013) 1.5 % PLATELET COUNT (test code = 1015) 251 K/UL HEMOGLOBIN [id number] 00:00:00* Test Item Value Reference Range Interpretation Comme nts HEMOGLOBIN A1c (test code = 00774) 5.3 % HEMOGLOBIN [id number] 00:00:00* Test Item Value Reference Range Interpretation Comme nts HEMOGLOBIN A1c (test code = 17742) 5.3 % HEMOGLOBIN [id number] 00:00:00* Test Item Value Reference Range Interpretation Comme nts HEMOGLOBIN A1c (test code = 14772) 5.3 % Kaz LopezC W/AUTO [id number] 00:00:00* Test Item Value Reference Range Interpretation Comme nts WBC (test code = 1001) 6.7 K/UL RBC (test code = 1002) 4.21 M/UL HEMOGLOBIN (test code = 1003) 13.1 G/DL HEMATOCRIT (test code = 1004) 38.1 % MCV (test code = 1005) 90.5 fL MCH (test code = 1006) 31.1 PG MCHC (test code = 1007) 34.4 G/DL RDW (test code = 1038) 14.4 % NEUTROPHILS (test code = 1008) 70.5 % LYMPHOCYTES (test code = 1010) 15.9 % MONOCYTES (test code = 1011) 10.7 % EOSINOPHILS (test code = 1012) 1.4 % BASOPHILS (test code = 1013) 1.5 % PLATELET COUNT (test code = 1015) 251 K/UL Kaz [id number] 00:00:00* Test Item Value Reference Range Interpretation Comme nts TSH, THIRD GENERATION (test code = 2821) 2.480 UIU/ML Kaz Colon [id number] 00:00:00* Test Item Value Reference Range Interpretation Comme nts TSH, THIRD GENERATION (test code = 2821) 2.480 UIU/ML [id number] 00:00:00* Test Item Value Reference Range Interpretation Comme nts TSH, THIRD GENERATION (test code = 2821) 2.480 UIU/ML [id number] 00:00:00* Test Item Value Reference Range Interpretation Comme nts TSH, THIRD GENERATION (test code = 2821) 2.480 UIU/ML Kaz Colon [id number] 00:00:00* Test Item Value Reference Range Interpretation Comme nts TSH, THIRD GENERATION (test code = 2821) 5.900 UIU/ML Kaz Colon [id number] 00:00:00* Test Item Value Reference Range Interpretation Comme nts TSH, THIRD GENERATION (test code = 2821) 5.900 UIU/ML [id number] 00:00:00* Test Item Value Reference Range Interpretation Comme nts TSH, THIRD GENERATION (test code = 2821) 5.900 UIU/ML [id number] 00:00:00* Test Item Value Reference Range Interpretation Comme nts TSH, THIRD GENERATION (test code = 2821) 5.900 UIU/ML Kaz Colon [id number] 00:00:00* Test Item Value Reference Range Interpretation Comme nts TSH, THIRD GENERATION (test code = 2821) 3.710 UIU/ML Kaz Colon [id number] 00:00:00* Test Item Value Reference Range Interpretation Comme nts TSH, THIRD GENERATION (test code = 2821) 3.710 UIU/ML [id number] 00:00:00* Test Item Value Reference Range Interpretation Comme nts TSH, THIRD GENERATION (test code = 2821) 3.710 UIU/ML [id number] 00:00:00* Test Item Value Reference Range Interpretation Comme nts TSH, THIRD GENERATION (test code = 2821) 3.710 UIU/ML Kaz Colon [facility] [id number] 00:00:00* Test Item Value Reference Range Interpretation Comme nts GLUCOSE (test code = 2217) 91 MG/DL BUN (test code = 2208) 18 MG/DL CREATININE (test code = 2214) 1.09 MG/DL eGFR AMER. (test cod e = ) 82 ML/MIN/1.73 eGFR NON- AMER. (test code = 48741) 71 ML/MIN/1.73 CALC BUN/CREAT (test code = 2235) 17 RATIO SODIUM (test code = 2231) 137 MEQ/L POTASSIUM (test code = 2228) 4.1 MEQ/L CHLORIDE (test code = 2215) 93 MEQ/L CARBON DIOXIDE (test code = 2206) 29 MEQ/L CALCIUM (test code = 2209) 9.7 MG/DL PROTEIN, TOTAL (test code = 2229) 8.0 G/DL ALBUMIN (test code = 2201) 4.8 G/DL CALC GLOBULIN (test code = 2240) 3.2 G/DL CALC A/G RATIO (test code = 2234) 1.5 RATIO BILIRUBIN, TOTAL (test code = 2207) 0.8 MG/DL ALKALINE PHOSPHATASE (test code = 2204) 87 U/L AST (test code = 2218) 19 U/L ALT (test code = 2219) 22 U/L Kaz LopezLIPID [id number] 00:00:00* Test Item Value Reference Range Interpretation Comme nts CHOLESTEROL (test code = 2210) 169 MG/DL TRIGLYCERIDES (test code = 2232) 125 MG/DL HDL CHOLESTEROL (test code = 2220) 58 MG/DL CALC LDL CHOL (test code = 2237) 86 MG/DL RISK RATIO LDL/HDL (test cod e = 2238) 1.48 RATIO Kaz [id number] 00:00:00* Test Item Value Reference Range Interpretation Comme nts TSH (test code = 2821) 19.690 UIU/ML Kaz Colon JohnCBC W/AUTO [id number] 00:00:00* Test Item Value Reference Range Interpretation Comme nts WBC (test code = 1001) 7.2 K/UL RBC (test code = 1002) 4.23 M/UL HEMOGLOBIN (test code = 1003) 13.3 G/DL HEMATOCRIT (test code = 1004) 37.4 % MCV (test code = 1005) 88.4 fL MCH (test code = 1006) 31.4 PG MCHC (test code = 1007) 35.6 G/DL RDW (test code = 1038) 14.0 % NEUTROPHILS (test code = 1008) 69.5 % LYMPHOCYTES (test code = 1010) 19.7 % MONOCYTES (test code = 1011) 8.2 % EOSINOPHILS (test code = 1012) 1.4 % BASOPHILS (test code = 1013) 1.2 % PLATELET COUNT (test code = 1015) 289 K/UL Kaz LopezCBC W/AUTO [id number] 00:00:00* Test Item Value Reference Range Interpretation Comme nts WBC (test code = 1001) 7.2 K/UL RBC (test code = 1002) 4.23 M/UL HEMOGLOBIN (test code = 1003) 13.3 G/DL HEMATOCRIT (test code = 1004) 37.4 % MCV (test code = 1005) 88.4 fL MCH (test code = 1006) 31.4 PG MCHC (test code = 1007) 35.6 G/DL RDW (test code = 1038) 14.0 % NEUTROPHILS (test code = 1008) 69.5 % LYMPHOCYTES (test code = 1010) 19.7 % MONOCYTES (test code = 1011) 8.2 % EOSINOPHILS (test code = 1012) 1.4 % BASOPHILS (test code = 1013) 1.2 % PLATELET COUNT (test code = 1015) 289 K/UL CBC W/AUTO [id number] 00:00:00* Test Item Value Reference Range Interpretation Comme nts WBC (test code = 1001) 7.2 K/UL RBC (test code = 1002) 4.23 M/UL HEMOGLOBIN (test code = 1003) 13.3 G/DL HEMATOCRIT (test code = 1004) 37.4 % MCV (test code = 1005) 88.4 fL MCH (test code = 1006) 31.4 PG MCHC (test code = 1007) 35.6 G/DL RDW (test code = 1038) 14.0 % NEUTROPHILS (test code = 1008) 69.5 % LYMPHOCYTES (test code = 1010) 19.7 % MONOCYTES (test code = 1011) 8.2 % EOSINOPHILS (test code = 1012) 1.4 % BASOPHILS (test code = 1013) 1.2 % PLATELET COUNT (test code = 1015) 289 K/UL HEMOGLOBIN [id number] 00:00:00* Test Item Value Reference Range Interpretation Comme nts HEMOGLOBIN A1c (test code = 21723) 5.3 % HEMOGLOBIN [id number] 00:00:00* Test Item Value Reference Range Interpretation Comme nts HEMOGLOBIN A1c (test code = 63037) 5.3 % COMPREHENSIVE METABOLIC [id number] 00:00:00* Test Item Value Reference Range Interpretation Comme nts GLUCOSE (test code = 2217) 91 MG/DL BUN (test code = 2208) 18 MG/DL CREATININE (test code = 2214) 1.09 MG/DL eGFR AMER. (test cod e = 52539) 82 ML/MIN/1.73 eGFR NON- AMER. (test code = 71459) 71 ML/MIN/1.73 CALC BUN/CREAT (test code = 2235) 17 RATIO SODIUM (test code = 2231) 137 MEQ/L POTASSIUM (test code = 2228) 4.1 MEQ/L CHLORIDE (test code = 2215) 93 MEQ/L CARBON DIOXIDE (test code = 2206) 29 MEQ/L CALCIUM (test code = 2209) 9.7 MG/DL PROTEIN, TOTAL (test code = 2229) 8.0 G/DL ALBUMIN (test code = 2201) 4.8 G/DL CALC GLOBULIN (test code = 2240) 3.2 G/DL CALC A/G RATIO (test code = 2234) 1.5 RATIO BILIRUBIN, TOTAL (test code = 2207) 0.8 MG/DL ALKALINE PHOSPHATASE (test code = 2204) 87 U/L AST (test code = 2218) 19 U/L ALT (test code = 2219) 22 U/L HEMOGLOBIN [id number] 00:00:00* Test Item Value Reference Range Interpretation Comme nts HEMOGLOBIN A1c (test code = 33291) 5.3 % Kaz F AustinLIPID [id number] 00:00:00* Test Item Value Reference Range Interpretation Comme nts CHOLESTEROL (test code = 2210) 169 MG/DL TRIGLYCERIDES (test code = 2232) 125 MG/DL HDL CHOLESTEROL (test code = 2220) 58 MG/DL CALC LDL CHOL (test code = 2237) 86 MG/DL RISK RATIO LDL/HDL (test cod e = 2238) 1.48 RATIO [id number] 00:00:00* Test Item Value Reference Range Interpretation Comme nts TSH (test code = 2821) 19.690 UIU/ML [id number] 00:00:00* Test Item Value Reference Range Interpretation Comme nts TSH (test code = 2821) 19.690 UIU/ML COMPREHENSIVE METABOLIC [id number] 00:00:00* Test Item Value Reference Range Interpretation Comme nts GLUCOSE (test code = 2217) 91 MG/DL BUN (test code = 2208) 18 MG/DL CREATININE (test code = 2214) 1.09 MG/DL eGFR AMER. (test cod e = 32469) 82 ML/MIN/1.73 eGFR NON- AMER. (test code = 39530) 71 ML/MIN/1.73 CALC BUN/CREAT (test code = 2235) 17 RATIO SODIUM (test code = 2231) 137 MEQ/L POTASSIUM (test code = 2228) 4.1 MEQ/L CHLORIDE (test code = 2215) 93 MEQ/L CARBON DIOXIDE (test code = 2206) 29 MEQ/L CALCIUM (test code = 2209) 9.7 MG/DL PROTEIN, TOTAL (test code = 2229) 8.0 G/DL ALBUMIN (test code = 2201) 4.8 G/DL CALC GLOBULIN (test code = 2240) 3.2 G/DL CALC A/G RATIO (test code = 2234) 1.5 RATIO BILIRUBIN, TOTAL (test code = 2207) 0.8 MG/DL ALKALINE PHOSPHATASE (test code = 2204) 87 U/L AST (test code = 2218) 19 U/L ALT (test code = 2219) 22 U/L Kaz Colon AustinLIPID [id number] 00:00:00* Test Item Value Reference Range Interpretation Comme nts CHOLESTEROL (test code = 2210) 169 MG/DL TRIGLYCERIDES (test code = 2232) 125 MG/DL HDL CHOLESTEROL (test code = 2220) 58 MG/DL CALC LDL CHOL (test code = 2237) 86 MG/DL RISK RATIO LDL/HDL (test cod e = 2238) 1.48 RATIO Kaz [id number] 00:00:00* Test Item Value Reference Range Interpretation Comme nts TSH (test code = 2821) 19.690 UIU/ML Kaz LopezCBC W/AUTO [id number] 00:00:00* Test Item Value Reference Range Interpretation Comme nts WBC (test code = 1001) 7.2 K/UL RBC (test code = 1002) 4.23 M/UL HEMOGLOBIN (test code = 1003) 13.3 G/DL HEMATOCRIT (test code = 1004) 37.4 % MCV (test code = 1005) 88.4 fL MCH (test code = 1006) 31.4 PG MCHC (test code = 1007) 35.6 G/DL RDW (test code = 1038) 14.0 % NEUTROPHILS (test code = 1008) 69.5 % LYMPHOCYTES (test code = 1010) 19.7 % MONOCYTES (test code = 1011) 8.2 % EOSINOPHILS (test code = 1012) 1.4 % BASOPHILS (test code = 1013) 1.2 % PLATELET COUNT (test code = 1015) 289 K/UL Kaz LopezHEMOGLOBIN [id number] 00:00:00* Test Item Value Reference Range Interpretation Comme nts HEMOGLOBIN A1c (test code = 71883) 5.3 % Kaz Lopez Notes Date/Time Note Provider Source 2024-03-26 07:34:29 Patient came out of room angry stating he was leaving. Used interactive media marketing strategist line to translate to Yi. Patient told that he could possibly if he leaves without seeing surgery for diagnosis of cholecystitis. Encouraged patient to stay. He stated that he would come back if he thought he needed to but that he was not staying and he was leaving and wanted the IV out. IV removed. Patient signed AMA form. Patient ambulatory out of ER with steady gait, A&O x 4, ABC intact. Paul Hanna RN [facility] 2024-03-26 07:12:02 Report given to Jodie and Paul RN Kirstie Rucker RN [facility] 2024-03-26 06:52:00 Attempted to initiate IV access and patient pulled arm away screaming. [facility] 2024-03-26 00:39:59 Pt c/o burning chest pain that began 3 hours ago. Rena Marion RN [facility] 2024-03-26 00:37:00 I personally examined the patient on 03/26/2024 and agree with Bo's MILAGROS note with the following addition(s): US c/w Cholecystitis . I actively participated in the decision-making process. Please see the Midlevel Provider's note for additional details. Drew Louis MD 03/26/24517 [facility] [facility] Kaz Goodrich [facility]2024-05-01 00:00:00 Plan Activity refill clopidogrel Go to ER for any shortness of breath , chest pain or bleeding 2017-04-21 managed by Cardiology 2017-04-21 managed by Cardiology 2017-04-21 screening labs today request records for recent colonoscopy declines prostate cancer screening today 2017-11-30 well controlled refill metoprolol succinate 25mg 0.5 tabs daily refill clopidogrel 75 mg qd monitor BP and f/u if BP is >140/90. pt verbalized understanding RTC 3 months for follow-up 2022-05-07 Refill levothyroxine 112 mcg qd weight and height disproport ionate obesity class I Therapeutic lifestyle modifications warranted 2021-11-07 Pt's pharmacy states pt casey nevarez has a refill of Cialis waiting for patient. Discussed possible SE including hypotension and cardiac precautions. precautions given 2019-03-05 STI testing at patient's req uest due to having new partner. Hep C, RPR 2019-03-05 A1C today 2021-11-07 prescribed loratidine 10mg d aily Tessalon Perles 100mg 1-2 capsule by mouth TID PRN cough Avoid Allergen Wash Hands Frequently Increase fluid intake Increase Rest Tablespoon of Honey to soothe cough salt water gargles/soothing throat lozenges Discussed Rx Side Effects RTO if symptoms persist/worsen 2019-08-07 advised pt on smoking cessation smoking cessation discussion advised that smoking will only deteriorate his health discussed emt intermediate risks of smoking w/ pt 2019-08-07 Recommend healthy eating wit h foods from a variety of food groups, appropriate portion sizes, and few sugary snacks/drinks. 2022-05-07 Daily activity recommended. 2022-05-07 EKG today in clinic 2019-11-02 Refill simvastatin 40mg daily 2022-05-07 Recommend Tylenol after work . Sed rate 2019-12-31 Heart Healthy diet, exercise , weight management Increase exercise to 45 minutes per day at least 4-5 times per week. Return for wellness exam at earliest convenience if have not been in for past year for this exam 2021-10-02 Continue with pantoprazole 40 mg tablet, delayed release qd po 2020-03-03 Steroid injection to left shoulder 06-13 CMP, lipase, amylase, CBC Continue with pantoprazole 2020-08-16 FIT CARD DECLINED COLONOSCOPY 2020-08-16 refer for colonoscopy 2020-08-17 refill pantoprazole RTC if symptoms worsen or persist 2022-02-26 weight and height disproport ionate Obesity Class I Therapeutic lifestyle changes required 2021-06-12 Likely r/t plavix CBC, CMP and PT/INR ER precautions for dizziness/SOB/difficulty breathing 2021-02-09 Reassured patient he does no t have "warts" but skin tags and no treatment is necessary 2021-04-06 Lamisil 250 mg 1 tab po morales y Pt will RTO for CMP in 30 days. Will not refill without CMP and normal LFT Recommended patient trim left toenail of area that is lifted from skin. Keep area clean and dry. 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 PT MAY CONSIDER STEROID INJECTION 2022-09-17 UA done to r/o kidney etiolo gy- no bacteria noted likely MSK in etiology Zanaflex prescribed . educated pt to apply warm compress to area RTC if no improvement 2023-04-11 ibuprofen prescribed. Medica tion side effects per pharmacy and verbal prescription given Educated pt to wear supportive shoes. RTC if no improvement 2023-07-04 Educated to apply warm compr ess to eye antibiotic ointment prescribed RTC if worsening or no improvement 2023-07-04 Right flank pain x 1 month urinary frequency Check UA, Urine culture 2023-12-16 [facility]34 1 month refills with no further refills until NOV and labs completed Orders placed for labs [id number] 11:25:35 Pt is wanting a month refill on medications selected he is scheduled to see on 04/10/2023. T [facility]
[2024-03-26 12:17] LABS: Absolute Basophils 0.1 K/uL (0-0.5); Absolute Lymphocytes (CBC) 0.2 K/uL (0.7-4.9); Absolute Monocytes 1.5 K/uL (0.1-1.3); Absolute Neutrophil 15.3 K/uL (1.8-8.0); Basophils % 0.4 % (0-1.3); Hematocrit 41.6 % (39.6-49.0); Hemoglobin 13.7 g/dL (13.6-17.9); Lymphocytes % 1.4 % (15.3-44.8); MCH 29.9 pg (27.0-35.0); MCHC 32.9 g/dL (32.0-36.0); MCV 91.1 fL (80-100); MPV 10.4 fL (7.6-11.3); Monocytes % 8.7 % (3.3-12.3); Neutrophils % 89.5 % (41.7-73.7); Platelets 164 thou/uL (152-406); RBC Red Blood Cell Count 4.57 M/uL (4.33-5.43); Red Cell Distribution Width 15.2 % (12.1-15.2)
[2024-03-26 12:27] LABS: PT Prothrombin Time 14.3 SECONDS (9.4-12.5); PTT, Activated Partial Thromb 28.2 SECONDS (24.3-36.9); Protime INR 1.29
[2024-03-26 12:27] LABS: Barbiturates NEGATIVE (NEGATIVE); Benzodiazepines NEGATIVE (NEGATIVE); Cocaine NEGATIVE (NEGATIVE); METHAMPHETAM NEGATIVE (NEGATIVE); Methadone NEGATIVE (NEGATIVE); Opiates POSITIVE (NEGATIVE); Phencyclidine NEGATIVE (NEGATIVE); THC Cannibis NEGATIVE (NEGATIVE)
[2024-03-26 12:33] LABS: Sqamous Epithelial <5 /HPF (None Seen); Urine Bacteria None Seen /HPF (<20); Urine Bilirubin 2+ (Negative); Urine Blood Trace (Negative); Urine Clarity Clear (Clear); Urine Color Dark-Yellow (Yellow); Urine Culture Reflex Order NOT NEEDED; Urine Glucose 2+ (Negative); Urine Ketones NEGATIVE (Negative); Urine Microscopic Reflex YN ORDER UMIC; Urine Mucus Slight /HPF (None Seen); Urine Nitrite NEGATIVE (Negative); Urine Protein 2+ (Negative); Urine Urobilinogen 2+ (Normal); Urine WBC <5 /HPF (<5)
[2024-03-26 12:34] LABS: Specific Gravity > 1.030 (1.005-1.030)
[2024-03-26 12:38] LABS: Creatine Phosphokinase 204 U/L (39-308); NT PRO-BNP 4365 pg/mL (<125)
[2024-03-26 12:46] LABS: Blood Morphology Comment NOT SEEN (NOT SEEN); Platelet Estimate ADEQ; White Blood Cell Scan OK (OK)
[2024-03-26 12:49] LABS: ALT/SGPT 423 U/L (16-61); AST/SGOT 252 U/L (15-37); Albumin 3.8 g/dL (3.4-5.0); Albumin/Globulin Ratio 1.1 (1.1-1.8); Alkaline Phosphatase 87 U/L (45-117); Anion Gap 9.8 mEq/L (5.0-15.0); BUN Blood Urea Nitrogen 24 mg/dL (7-18); Bicarbonate 24 mEq/L (21-32); Bilirubin Direct 3.3 mg/dL (0-0.2); Bilirubin Indirect, Calculated 1.7 mg/dL (0.2-0.8); Globulin 3.5 g/dL (2.3-3.5); Glomerular Filtration Rate 48 ml/min (=/>90); Glucose Level 215 mg/dL (74-106); Potassium 3.8 mEq/L (3.5-5.1); Protein, Total 7.3 g/dL (6.4-8.2); Sodium Level 138 mEq/L (136-145)
[2024-03-26 13:27] LABS: SARS-CoV-2 Antigen CONTROL BLUE LINE VIS/BG OK; SARS-CoV-2 Antigen Rapid Res Negative (Negative)
--- NOTE | 2024-03-26 14:17 | RAD REPORT ---
EXAM DESCRIPTION: CT - Head C Spine Cap Vickie Con - 03/26/2024 1:47 pm CLINICAL HISTORY: Confusion, next pain, hypoxia, abdominal pain TECHNIQUE: Computed axial tomography of head, neck, chest, abdomen and pelvis obtained. IV and oral contrast not requested. Coronal and sagittal reconstruction performed. All CT scans are performed using dose optimization technique as appropriate and may include automated exposure control or mA/KV adjustment according to patient size. COMPARISON: 2017 CT chest and abdomen FINDINGS: An intracranial bleed is not seen. The ventricles are normal in caliber. An extra-axial fluid collection is not noted. Fluid within the sinuses/mastoids is not seen. A cervical fracture is not seen. No dislocation is noted. Spondylosis involves cervical spine. This r esults in mild to moderate central spinal stenosis The evaluation of mediastinum, mikel, vessels, solid organs and bowel are limited secondary to the lac k of contrast administration. A mediastinal hematoma is not noted. A pleural effusion is not seen. A lung contusion is not present. Lungs are clear The liver,spleen, pancreas, adrenals,kidneys and bladder appear grossly normal. Contrast is present w ithin the genitourinary system likely from prior imaging. Chronic compression deformity L3 vertebral body Mild blurring of the fat adjacent to the gallbladder Normal appendix. Small umbilical hernia IMPRESSION: No acute intracranial abnormality is seen. Spondylosis cervical spine. . If the patient continues to have symptoms to suggest intracranial/spina l cord/spinal canal pathology MRI be recommended Mild blurring of the fat adjacent to the gallbladder. If the patient has clinical symptoms to suggest gallbladder pathology ultrasound would be recommended
[2024-03-26] MEDS ORDERED: NA CHLORIDE 0.9% 1,000 ML ONE (14:48)
--- NOTE | 2024-03-26 16:24 | RAD REPORT ---
EXAM DESCRIPTION: US - Abdomen Exam Limited - 03/26/2024 2:59 pm CLINICAL HISTORY: Abdominal pain. COMPARISON: CT March 26, 2024 FINDINGS: Small to moderate amount of gallbladder sludge. A gallstone is not seen. Gallbladder wall 3 millimeters. Gallbladder is mildly distended The biliary tree is normal caliber. IMPRESSION: Mild gallbladder distention. Borderline gallbladder wall thickening may indicate cholecystitis and should be correlated clinically Small to moderate amount of sludge
[2024-03-26] MEDS ORDERED: METRONIDAZOLE 500mg IVPB 500 MG/100 ML BAG IV ONE (17:50)
[2024-03-26] MEDS ORDERED: CIPROFLOXACIN 400mg IV 400 MG/200 ML BAG IV ONE (17:50)
--- NOTE | 2024-03-26 18:59 | EDPHYS ---
Physician Documentation [facility] Name: Mayur Johnson Age: 74 yrs Sex: Male : 1950 Arrival Date: 03/26/2024 Time: 11:09 Bed 7 Private MD: ED Physician Reynold Jiang HPI: 03/26 11:25 This 74 yrs old Male presents to ER via Unassigned with complaints of Altered sb4 Mental Status. 11:25 The patient presents with confusion. Onset: The symptoms/episode began/occurred at an sb4 unknown time. patient found wandering by [facility]. apparently was seen at [facility] yesterday. is oriented to person and president, but not place or time. cannot provide any further history. EMS reports blood sugar of 370. Historical: - Allergies: 12:27 PENICILLINS; nj1 - PMHx: 12:27 Atrial Fib; CAD; Hyperlipidemia; Hypertension; Myocardial infarction; nj1 - Immunization history:: Adult Immunizations unknown. - Infectious Disease History:: unable to obtain . - Social history:: Smoking status: unknown. ROS: 11:28 Unable to obtain ROS due to altered mental status, sb4 Exam: 19:01 Chest/axilla: Normal chest wall appearance and motion. Nontender with no deformity. sb4 No lesions are appreciated. Cardiovascular: Regular rate and rhythm with a normal S1 and S2. Respiratory: Lungs have equal breath sounds bilaterally, clear to auscultation and percussion. No rales, rhonchi or wheezes noted. No increased work of breathing, no retractions or nasal flaring. 19:01 Constitutional: The patient appears alert, awake, smells of urine, 19:01 Eyes: Sclera: icterus, is not appreciated, 19:01 Abdomen/GI: Inspection: distension, Bowel sounds: normal, Palpation: soft, moderate abdominal tenderness, in the right upper quadrant, 19:01 Skin: Appearance: Color: jaundiced, 19:01 Neuro: Orientation: to person, president. Not oriented to place, time, Memory: recent memory is intact, Motor: moves all fours, Vital Signs: 12:20 BP 118 / 79; Pulse 85; Resp 20; Temp 99.3; Pulse Ox 88% on R/A; Weight 90.72 kg (R); nj1 Height 5 ft. 6 in. ; 12:27 Pulse Ox 94% on 4 lpm NC; nj1 13:15 BP 122 / 78; Pulse 77; Resp 18; Pulse Ox 100% on 4 lpm NC; nj1 14:44 BP 131 / 110; Pulse 69; Resp 18; Pulse Ox 100% on 4 lpm NC; nj1 16:17 BP 114 / 55; Pulse 65; Resp 18; Pulse Ox 98% on R/A; nj1 16:52 BP 104 / 56; Pulse 68; Resp 18; Pulse Ox 96% on R/A; nj1 17:48 BP 103 / 80; Pulse 102; Resp 18; Temp 98.4(O); Pulse Ox 97% on 3 lpm NC; nj1 18:30 BP 101 / 54; Pulse 72; Resp 14; Pulse Ox 94% on 3 lpm NC; dd2 22:15 BP 97 / 66; Pulse 92; Resp 18; Temp 98.4; Pulse Ox 98% on 2 lpm NC; Pain 0/10; bm8 23:41 BP 94 / 67; Pulse 89; Resp 17; Temp 98.4; Pulse Ox 96% on 3 lpm NC; Pain 0/10; bm8 12:20 Body Mass Index 32.28 (90.72 kg, 167.64 cm) nj1 22:15 Pain Scale: Adult bm8 23:41 Pain Scale: Adult bm8 [place] Coma Score: 12:20 Eye Response: spontaneous(4). Motor Response: obeys commands(6). Verbal Response: nj1 confused(4). Total: 14. 16:30 Eye Response: spontaneous(4). Motor Response: obeys commands(6). Verbal Response: nj1 confused(4). Total: 14. 18:50 Eye Response: to voice(3). Motor Response: localizes pain(5). Verbal Response: nj1 confused(4). Total: 12. 19:44 Eye Response: spontaneous(4). Motor Response: obeys commands(6). Verbal Response: bm8 oriented(5). Total: 15. 22:15 Eye Response: spontaneous(4). Motor Response: obeys commands(6). Verbal Response: bm8 oriented(5). Total: 15. 23:41 Eye Response: spontaneous(4). Motor Response: obeys commands(6). Verbal Response: bm8 oriented(5). Total: 15. MDM: 11:12 Patient medically screened. sb4 17:36 ED course: Discussed with patient his lab and imaging results- that he has sb4 cholecystitis with elevated liver enzymes and needs surgical intervention. He states that he was told this last night at [facility] and refused then and is refusing now. I discussed the risks of not having surgery- sepsis, possible - he understands and states that he wants to because the world is a bad place. When I ask if he wants to harm himself, he rolls his eyes and declines to answer. Attempted to reach next of kin, the phone number was invalid. Contacted John JOHNSON who was initially called out for him and they were also unable to reach any family or friends. 18:57 Data reviewed: vital signs, nurses notes, EMS record, lab test result(s), radiologic sb4 studies, I have discussed the patient's presentation/case with the attending Emergency Department Physician; and as a result, I will. Counseling: I had a detailed discussion with the patient and/or guardian regarding the historical points, exam findings, and any diagnostic results supporting the discharge/admit diagnosis, lab results, radiology results, the need to transfer to another facility, for higher level of care, [facility] does not immediately have the required specialist. 19:00 ED course: patient has declined. he is not awake, alert to verbal stimuli but quickly sb4 goes back to sleep. cannot answer any questions. appears jaundiced, has desaturated, blood pressure is down trending. I will transfer patient for higher level of care as we do not have GI or OR available . 19:05 Management of patient was discussed with the following: ERP at [facility], states he sb4 saw patient this morning at shift change and tried to convince him to stay for surgery but he adamantly refused and left. ERP states that he was not confused and did not have any family with him. 19:08 ED course: severe sepsis criteria met at 1748. did not initially meet criteria prior to sb4 antibiotics being ordered by me at 1629. blood cultures and lactate now ordered. 20:09 ED course: Received pt with transfer planned to [facility]. Pt did just have an ABG: bo1 7.468/26.7/57.7 \T\ 92% O2 sat on RA. 21:38 Differential Diagnosis: sepsis, AMS. ED course: Higher level of care required - No GI \T\ bo1 [place]. 21:45 ED course: Discussed with transfer: Accepted MD - Dr Delta THORNTON (medicine) add lipase bo1 level. 21:45 Data reviewed: old medical records, 3 visits, seen last 2016 lab test result(s), CBC, bo1 electrolytes, hepatic panel, urine drug screen, lactic acid level, EKG, radiologic studies, CT scan, ultrasound. 03/26 11:23 Order name: Acetaminophen; Complete Time: 12:54 sb4 03/26 11:23 Order name: Basic Metabolic Panel; Complete Time: 12:54 sb4 03/26 11:23 Order name: CBC with Diff; Complete Time: 12:46 sb4 03/26 11:23 Order name: ETOH Level; Complete Time: 12:49 sb4 03/26 11:23 Order name: Hepatic Function; Complete Time: 12:54 sb4 03/26 11:23 Order name: PT-INR; Complete Time: 12:27 sb4 03/26 11:23 Order name: Ptt, Activated; Complete Time: 12:27 sb4 03/26 11:23 Order name: Salicylate; Complete Time: 13:05 sb4 03/26 11:23 Order name: Urinalysis w/ reflexes; Complete Time: 12:35 sb4 03/26 11:23 Order name: Urine Drug Screen; Complete Time: 12:27 sb4 03/26 11:23 Order name: AMMONIA; Complete Time: 12:35 sb4 03/26 11:33 Order name: CK; Complete Time: 12:39 sb4 03/26 11:33 Order name: BNP; Complete Time: 12:39 sb4 03/26 12:39 Order name: SARS RAPID; Complete Time: 13:27 sb4 03/26 12:46 Order name: CBC Smear Scan; Complete Time: 12:46 EDMS 03/26 18:59 Order name: Blood Culture Adult (2) 4 03/26 18:59 Order name: Lactate w/ 2H reflex if indic.; Complete Time: 20:47 sb4 03/26 19:18 Order name: ABG 4 03/26 19:36 Order name: Glucose, Ancillary Testing; Complete Time: 19:36 EDMS 10 20:07 Order name: D-Dimer; Complete Time: 09:27 bo1 03/26 21:33 Order name: Lactate w/ 2H reflex if indic.; Complete Time: 09:27 EDMS 03/26 21:44 Order name: Lipase; Complete Time: 09:27 bo1 03/26 12:31 Order name: CT Traumagram (Head C Spine CAP wo con); Complete Time: 14:21 sb4 03/26 14:22 Order name: US Abdomen Limited; Complete Time: 16:25 sb4 03/26 20:06 Order name: XRAY CXR (1 view); Complete Time: 21:15 bo1 03/26 11:23 Order name: IV Saline Lock; Complete Time: 12:06 sb4 03/26 11:23 Order name: Labs collected and sent; Complete Time: 12:06 sb4 03/26 12:41 Order name: EKG - Nurse/Tech; Complete Time: 12:41 nj1 03/26 19:14 Order name: Accucheck; Complete Time: 19:35 sb4 EC:51 Rate is 82 beats/min. Rhythm is regular, Normal Sinus Rhythm. SD interval is normal at sb4 184 msec. QRS interval is normal at 114 msec. QT interval is normal at 388 msec. No Q waves. T waves are Normal. No ST changes noted. Clinical impression: No evidence of ischemia. Interpreted by me. Reviewed by me. Administered Medications: 11:33 CANCELLED (Physician Discretion): ns 0.9% 1000 ml IV at 1 bolus Per protocol; 1000 mL sb4 bolus 14:54 Drug: NS 0.9% IV 1000 ml IV at 1 bolus Per protocol; 1000 mL bolus Route: IV; Rate: 1 nj1 bolus; Site: left wrist; 16:30 Follow up: Response: No adverse reaction; IV Status: Completed infusion; IV Intake: nj1 1000ml 18:07 Drug: metroNIDAZOLE IVPB 500 mg 100 ml IVPB at 200 ml/hr once over 30 mins Volume: 100 dd2 ml; Route: IVPB; Rate: 200 ml/hr; Infused Over: 30 mins; Site: left hand; 22:17 Follow up: Response: No adverse reaction; IV Status: Completed infusion; IV Intake: bm8 100ml 19:01 Drug: Ciprofloxacin IVPB 400 mg 200 ml IVPB once over 60 mins Volume: 200 ml; Route: dd2 IVPB; Infused Over: 60 mins; Site: left hand; 21:22 Follow up: Response: No adverse reaction; IV Status: Completed infusion me1 Disposition: 19:03 Chart complete. sb4 19:32 Critical Care:. sb4 Disposition Summary: 03/26/24 18:58 Transfer Ordered Notes: Transfer Location: [facility] sb4 Reason: Higher level of care sb4 Condition: Serious sb4 Problem: new sb4 Symptoms: have worsened sb4 Accepting Physician: GI/gen surg(03/26/24 23:43) bm8 Diagnosis - Altered mental status, unspecified sb4 - Acute cholecystitis - elevated LFTs(03/26/24 18:59) sb4 - Hypoxemia sb4 - Severe sepsis without septic shock sb4 Forms: - Medication Reconciliation Form sb4 - SBAR form sb4 Critical care time excluding procedures: 19:32 Critical care time: Bedside Care: 20 minutes, Consultation: 20 minutes, Family sb4 Intervention: 5 minutes. Total time: 45 minutes Signatures: Dispatcher [employer] EDMS Mireille Chairez PA-C PA-C sb4 [place], RN RN nj1 Raciel Obando MD MD bo1 Gabriel Torrez RN RN bm8 LOW HARRISON, CHENG RN dd2 Debbie Arnold RN me1 Corrections: (The following items were deleted from the chart) 11:24 11:23 ACETAMINOPHEN+C.LAB.BRZ ordered. EDMS EDMS 11:24 11:23 BASIC METABOLIC PANEL+C.LAB.BRZ ordered. EDMS EDMS 11:24 11:23 CBC+H.LAB.BRZ ordered. EDMS EDMS 11:24 11:23 ETHANOL+C.LAB.BRZ ordered. EDMS EDMS 11:24 11:23 HEPATIC FUNCTION+C.LAB.BRZ ordered. EDMS EDMS 11:24 11:23 PROTIME (+INR)+COAG.LAB.BRZ ordered. EDMS EDMS 11:24 11:23 PTT, ACTIVATED+COAG.LAB.BRZ ordered. EDMS EDMS 11:24 11:23 SALICYLATE+C.LAB.BRZ ordered. EDMS EDMS 11:24 11:23 Urinalysis+U.LAB.BRZ ordered. EDMS EDMS 11:24 11:23 URINE DRUG SCREEN+UC.LAB.BRZ ordered. EDMS EDMS 11:24 11:23 AMMONIA+C.LAB.BRZ ordered. EDMS EDMS 11:33 11:23 NS 0.9% IV 1000 ml IV at 1 bolus Per protocol; 1000 mL bolus ordered. sb4 sb4 12:39 12:39 SARS-COV-2 Antigen Rapid+I.LAB.BRZ ordered. EDMS EDMS 18:59 18:58 GI/gen surg sb4 sb4 18:59 18:58 Acute cholecystitis sb4 sb4 19:00 19:00 LACTATE+C.LAB.BRZ ordered. EDMS EDMS 19:10 19:08 ED course: severe sepsis criteria met. did not initially meet criteria prior to sb4 antibiotics being ordered by me. anti. sb4 19:11 19:08 ED course: severe sepsis criteria met at 1748. did not initially meet criteria sb4 prior to antibiotics being ordered by me at 1639. blood cultures and lactate now ordered. sb4 19:22 18:59 GI/gen surg sb4 sb4 19:23 19:22 GI/gen surg sb4 sb4 23:43 19:23 GI/gen surg sb4 bm8
--- NOTE | 2024-03-26 18:59 | ER ---
Nurse's Notes [facility] Name: Mayur Johnson Age: 74 yrs Sex: Male : 1950 Arrival Date: 03/26/2024 Time: 11:09 Bed 7 Private MD: Diagnosis: Acute cholecystitis-elevated LFTs;Altered mental status, unspecified;Hypoxemia;Severe sepsis without septic shock Presentation: 03/26 12:28 Coronavirus screen: unable to obtain. Ebola Screen: Unable to complete the Ebola [facility] screening because: The patient is disoriented. Initial Sepsis Screen: Does the patient meet any 2 criteria? Altered Mental Status. No. Patient's initial sepsis screen is negative. Does the patient have a suspected source of infection? No. Patient's initial sepsis screen is negative. Risk Assessment: Do you want to hurt yourself or someone else? Unable to obtain. Onset of symptoms is unknown. 12:28 Method Of Arrival: EMS nj 12:28 Acuity: GILSON 3 nj 23:27 Note contacted [facility] for possible contact information Pt reports has family on [facility] in [facility] [employer] to attempt to contact also will attempt to contact apartment exhibits manager for alternate contact information. Historical: - Allergies: 12:27 PENICILLINS; nj1 - PMHx: 12:27 Atrial Fib; CAD; Hyperlipidemia; Hypertension; Myocardial infarction; nj1 - Immunization history:: Adult Immunizations unknown. - Infectious Disease History:: unable to obtain . - Social history:: Smoking status: unknown. Screenin:31 [facility] ED Fall Risk Assessment (Adult) History of falling in the last 3 months, nj including since admission No falls in past 3 months (0 pts) Confusion or Disorientation Yes (5 pts) Intoxicated or Sedated No (0 pts) Impaired Gait No (0 pts) Mobility Assist Device Used No (0 pt) Altered Elimination No (0 pt) Score/Fall Risk Level 3 or more points = High Risk Oriented to surroundings, Maintained a safe environment, Educated pt \\T\\ family on fall prevention, incl call for assistance when getting out of bed, Assessed \\T\\ reinforced patient's understanding of fall precautions, Hourly rounding (assess needs \\T\\ fall precautionary measures) done, Remained with patient while ambulating, Utilized family, sitter, or virtual senior software manager as indicated. Abuse screen: Denies threats or abuse. Denies injuries from another. Nutritional screening: No deficits noted. Tuberculosis screening: No symptoms or risk factors identified. Assessment: 12:20 General: Appears in no apparent distress. comfortable, Behavior is calm, cooperative, nj1 appropriate for age. Pain: Denies pain. Neuro: Level of Consciousness is obeys commands, confused, lethargic, Oriented to person, time, Moves all extremities. Speech is normal, Facial symmetry appears normal, Pupils are PERRLA. Cardiovascular: Patient's skin is warm and dry. Respiratory: Airway is patent Respiratory effort is even, unlabored. 13:15 Reassessment: Patient appears in no apparent distress at this time. No changes from nj1 previously documented assessment. 14:45 Reassessment: Patient appears in no apparent distress at this time. No changes from nj1 previously documented assessment. 16:17 Reassessment: Patient appears in no apparent distress at this time. No changes from nj1 previously documented assessment. Resting/sleeping. 16:30 Neuro: Level of Consciousness is awake, alert, confused, Oriented to person, pt is nj1 upset when asked questions, answer "i know" but does not give appropriate answer most of the times. . 16:30 Reassessment: Pt has removed monitoring devices. nj1 18:50 Neuro: Level of Consciousness is lethargic. nj1 18:50 Reassessment: Patient appears in no apparent distress at this time. nj1 19:44 Reassessment: Patient appears in no apparent distress at this time. Patient and/or bm8 family updated on plan of care and expected duration. Pain level reassessed. Patient is alert, oriented x 3, equal unlabored respirations, skin warm/dry/pink. General: Appears in no apparent distress. uncomfortable, Behavior is cooperative, appropriate for age. Pain: Denies pain. Neuro: Level of Consciousness is awake, obeys commands, confused, Oriented to person, time, Moves all extremities. Full function. Cardiovascular: Capillary refill < 3 seconds Patient's skin is warm and dry. Respiratory: Airway is patent Respiratory effort is even, unlabored, Respiratory pattern is regular, symmetrical, Breath sounds are clear bilaterally. GI: Abdomen is round distended, Bowel sounds present X 4 quads. Abdomen is tender to palpation in right upper quadrant. : Urine is cloudy, dark orange in color. EENT: No signs and/or symptoms were reported regarding the EENT system. Derm: No signs and/or symptoms reported regarding the dermatologic system. Musculoskeletal: No signs and/or symptoms reported regarding the musculoskeletal system. 22:15 Reassessment: Patient appears in no apparent distress at this time. No changes from bm8 previously documented assessment. Patient and/or family updated on plan of care and expected duration. Pain level reassessed. Patient is alert, oriented x 3, equal unlabored respirations, skin warm/dry/pink. 23:01 Reassessment: called report to CHENG Dow at [facility]. bm8 23:41 Reassessment: Patient appears in no apparent distress at this time. No changes from bm8 previously documented assessment. Patient and/or family updated on plan of care and expected duration. Pain level reassessed. Patient is alert, oriented x 3, equal unlabored respirations, skin warm/dry/pink. Vital Signs: 12:20 BP 118 / 79; Pulse 85; Resp 20; Temp 99.3; Pulse Ox 88% on R/A; Weight 90.72 kg (R); nj1 Height 5 ft. 6 in. ; 12:27 Pulse Ox 94% on 4 lpm NC; nj1 13:15 BP 122 / 78; Pulse 77; Resp 18; Pulse Ox 100% on 4 lpm NC; nj1 14:44 BP 131 / 110; Pulse 69; Resp 18; Pulse Ox 100% on 4 lpm NC; nj1 16:17 BP 114 / 55; Pulse 65; Resp 18; Pulse Ox 98% on R/A; nj1 16:52 BP 104 / 56; Pulse 68; Resp 18; Pulse Ox 96% on R/A; nj1 17:48 BP 103 / 80; Pulse 102; Resp 18; Temp 98.4(O); Pulse Ox 97% on 3 lpm NC; nj1 18:30 BP 101 / 54; Pulse 72; Resp 14; Pulse Ox 94% on 3 lpm NC; dd2 22:15 BP 97 / 66; Pulse 92; Resp 18; Temp 98.4; Pulse Ox 98% on 2 lpm NC; Pain 0/10; bm8 23:41 BP 94 / 67; Pulse 89; Resp 17; Temp 98.4; Pulse Ox 96% on 3 lpm NC; Pain 0/10; bm8 12:20 Body Mass Index 32.28 (90.72 kg, 167.64 cm) nj1 22:15 Pain Scale: Adult bm8 23:41 Pain Scale: Adult bm8 Malcom Coma Score: 12:20 Eye Response: spontaneous(4). Motor Response: obeys commands(6). Verbal Response: nj1 confused(4). Total: 14. 16:30 Eye Response: spontaneous(4). Motor Response: obeys commands(6). Verbal Response: nj1 confused(4). Total: 14. 18:50 Eye Response: to voice(3). Motor Response: localizes pain(5). Verbal Response: nj1 confused(4). Total: 12. 19:44 Eye Response: spontaneous(4). Motor Response: obeys commands(6). Verbal Response: bm8 oriented(5). Total: 15. 22:15 Eye Response: spontaneous(4). Motor Response: obeys commands(6). Verbal Response: bm8 oriented(5). Total: 15. 23:41 Eye Response: spontaneous(4). Motor Response: obeys commands(6). Verbal Response: bm8 oriented(5). Total: 15. ED Course: 11:12 Patient arrived in ED. sb4 11:12 Mireille Chairez PA-C is PHCP. sb4 11:12 Reynold Jiang MD is Attending Physician. sb4 11:46 Little Jeffries, RN is Primary Nurse. nj1 12:06 BNP Sent. bc6 12:06 CK Sent. bc6 12:06 AMMONIA Sent. bc6 12:06 Acetaminophen Sent. bc6 12:06 Basic Metabolic Panel Sent. bc6 12:06 CBC with Diff Sent. bc6 12:06 ETOH Level Sent. bc6 12:06 Hepatic Function Sent. bc6 12:06 PT-INR Sent. bc6 12:06 Ptt, Activated Sent. bc6 12:06 Salicylate Sent. bc6 12:06 Urinalysis w/ reflexes Sent. bc6 12:06 Urine Drug Screen Sent. bc6 12:06 Initial lab(s) drawn, by ok, sent to lab. Inserted saline lock: 22 gauge in left wrist, bc6 using aseptic technique. Blood collected. Flushed with 10 mL NS. 12:22 Oxygen administration via nasal cannula \\T\\ 4L/min. nj1 12:28 Arm band placed on. nj1 12:29 Triage completed. nj1 12:31 Patient has correct armband on for positive identification. Bed in low position. Call nj1 light in reach. Side rails up X 1. Provided Education on: call light, fall precautions. 13:49 CT Traumagram (Head C Spine CAP wo con) In Process Unspecified. EDMS 15:01 US Abdomen Limited In Process Unspecified. EDMS 19:00 Report given to Gabriel ANAND and Debbie RN. nj1 19:[address] [facility], spoke with Shara. af3 19:44 No provider procedures requiring assistance completed. IV is patent, with fluids bm8 infusing freely, with good blood return, Flushed left hand with 5 ml normal saline. Patient maintains SpO2 saturation greater than 95% on room air. 19:44 Door closed. Noise minimized. Pillow given. Verbal reassurance given. Head of bed bm8 elevated. Turned to right side. 20:59 XRAY CXR (1 view) In Process Unspecified. EDMS 21:22 Debbie Arnold, CHENG is Primary Nurse. me1 21:22 D-Dimer Sent. me1 21:57 Gabriel Torrez, RN is Primary Nurse. bm8 22:42 Pt has been accepted at [facility] Rm 1539 by \\T\\214. af3 22:54 spoke with juan at [facility], acceptance for transfer truck. af3 23:41 Patient transferred, IV remains in place. bm8 Administered Medications: 11:33 CANCELLED (Physician Discretion): ns 0.9% 1000 ml IV at 1 bolus Per protocol; 1000 mL sb4 bolus 14:54 Drug: NS 0.9% IV 1000 ml IV at 1 bolus Per protocol; 1000 mL bolus Route: IV; Rate: 1 nj1 bolus; Site: left wrist; 16:30 Follow up: Response: No adverse reaction; IV Status: Completed infusion; IV Intake: nj1 1000ml 18:07 Drug: metroNIDAZOLE IVPB 500 mg 100 ml IVPB at 200 ml/hr once over 30 mins Volume: 100 dd2 ml; Route: IVPB; Rate: 200 ml/hr; Infused Over: 30 mins; Site: left hand; 22:17 Follow up: Response: No adverse reaction; IV Status: Completed infusion; IV Intake: bm8 100ml 19:01 Drug: Ciprofloxacin IVPB 400 mg 200 ml IVPB once over 60 mins Volume: 200 ml; Route: dd2 IVPB; Infused Over: 60 mins; Site: left hand; 21:22 Follow up: Response: No adverse reaction; IV Status: Completed infusion ok1 Medication: 19:44 VIS not applicable for this client. bm8 Intake: 16:30 IV: 1000ml; Total: 1000ml. nj1 22:17 IV: 100ml; Total: 1100ml. bm8 Outcome: 18:58 ER care complete, transfer ordered by . sb4 23:41 Transferred by [facility] to [facility], Transfer form completed. bm8 X-rays sent w/ patient. 23:41 Condition: stable 23:41 Instructed on the need for admit, Demonstrated understanding of instructions, follow-up care, medications, 23:43 Patient left the ED. bm8 Signatures: Dispatcher [employer] EDMS Margaret Jeter RN RN kl Brown, Sophia, PA-C PA-C sb4 Nancy Solorio bc6 Little Jeffries RN RN nj1 Debbie Arnold RN RN me1 Gabriel Torrez RN RN bm8 Daniela Olsen DIANA, RN RN dd2 Corrections: (The following items were deleted from the chart) 16:52 16:17 BP 114 / 55; Pulse 65bpm; Resp 18bpm; Pulse Ox 98%; [place] [id number] 16:52 16:17 BP 104 / 56; Pulse 68bpm; Resp 18bpm; Pulse Ox 96% RA; [place] [address] 19:12 17:48 BP 103 / 80; Pulse 102bpm; Resp 18bpm; Pulse Ox 97% RA; Temp 98.4F Oral; [place] [address] 22:42 22:[address] [facility], spoke with Shara ma3 af3
[2024-03-26 20:09] LABS: Arterial Blood Carboxyhemoglob 1.5 % (0-1.5); Blood Gas Oxyhemoglobin 89.2 % (94-97); Blood Gas THB 13.6 g/dl (12-18); Blood O2 Saturation 92.1 % (92-98.5)
--- NOTE | 2024-03-26 21:10 | RAD REPORT ---
EXAM DESCRIPTION: Richardson Single View03/26/2024 8:57 pm CLINICAL HISTORY: Chest pain COMPARISON: 2017 FINDINGS: Mild chronic appearing interstitial lung opacities. Lungs appear clear of acute infiltrate The heart is mildly to moderately enlarged IMPRESSION: No acute abnormalities displayed
[2024-03-27 00:55] VITALS: TEMP 98.4
[2024-03-27 00:59] VITALS: BP 94/67; O2SAT 96
== END 2024-03-26 23:43 | disposition short-term general hospital (02) ==
LOC: ER 11:09
DX: K81.0 Acute cholecystitis (principal); R65.20 Severe sepsis without septic shock; R09.02 Hypoxemia; I10 Essential (primary) hypertension; I48.91 Unspecified atrial fibrillation; I25.2 Old myocardial infarction; Z11.52 Encounter for screening for COVID-19
CPT/HCPCS: 36415; 36600; 70450; 71045; 71250; 72125; 76705; 80048; 80076; 80143; 80179; 80307; 81001; 82077; 82140; 82550; 82805; 82947; 83605; 83690; 83880; 85025; 85379; 85610; 85730; 87040; 87811; 96361; 96365; 96366; 99285; J0744; J7030